=== PATIENT | female | born 1945 | race African-American/Black ===

== ENCOUNTER 2016-12-01 23:01 | Inpatient (IN) | payer MEDICARE, OTHER ==
[~2016-12-01] VITALS: Ht 162.6 cm; Wt 116.2 kg
[~2016-12-01 23:01] MED LIST: AMLO5 PO; LEVEMIR SQ; LISI-519 PO; METO-309 PO; NOVOLOGSS SQ; PANT40TA3 PO; SUCR1S PO
--- NOTE | 2016-12-01 23:11 | PD ---
HPI Chief Complaint: Neuro Symptoms/ Deficits Time Seen by Provider: 23:04 Travel History International Travel<30 days: No Contact w/Intl Traveler<30days: No Traveled to known affect area: No History of Present Illness HPI The patient is a 71-year-old Mia female who presents emergency department via EMS from a hotel on [facility] for hyperglycemia and strokelike symptoms. According to EMS the patient's symptoms started earlier today, unknown onset of time that varies from somewhere before 4 PM to 5 PM. The patient does not note acute onset of her symptoms, however, when asked she states it started before 4 PM. Her speech has been waxing and waning according to EMS with what appears to be expressive aphasia. The patient does have a history of previous CVA with dysarthria and left-sided weakness. The patient cannot recall all of her medications, however, states she was taken off of aspirin. The patient also has a history of diabetes and is currently controlled with insulin, coronary EMS the patient's blood sugar read as high. She denies any chest pain, shortness breath, nausea, vomiting, or abdominal pain. She denies any associated headache. She denies any acute weakness of the upper or lower extremity. She denies any acute numbness of the upper or lower extremity is, her biggest concern is or change in speech which appears to wax and wane. PFSH Past Medical History Arthritis: No Asthma: Yes Autoimmune Disease: No Blood Disorders: No Anxiety: No Depression: No Heart Rhythm Problems: No Cancer: No Cardiovascular Problems: Yes High Cholesterol: Yes Chemotherapy: No Chest Pain: Yes (At present) Congestive Heart Failure: No COPD: No Cerebrovascular Accident: Yes Diabetes: Yes Diminished Hearing: No Endocrine: Yes (DIABETES) GERD: Yes Genitourinary: No Headaches: No Hepatitis: No Hiatal Hernia: No Hypertension: Yes Immune Disorder: No Kidney Stones: No Musculoskeletal: No Neurologic: Yes Psychiatric: No Reproductive: No Respiratory: Yes Migraines: No Myocardial Infarction: No Radiation Therapy: No Renal Failure: No Seizures: No Sickle Cell Disease: No Thyroid Disease: No Ulcer: No Past Surgical History Abdominal Surgery: No AICD: No Appendectomy: No Arteriovenous Shunt: No Cardiac Surgery: No Cholecystectomy: No Ear Surgery: No Endocrine Surgery: No Eye Surgery: No Genitourinary Surgery: No Gynecologic Surgery: No Insulin Pump: No Joint Replacement: No Oral Surgery: No Pacemaker: No Thoracic Surgery: No Other Surgery: Yes (SCALP) Social History Alcohol Use: No Tobacco Use: No Substance Use: No Allergies-Medications (Allergen,Severity, Reaction): Coded Allergies: No Known Allergies (Verified , 04/27/16) Uncoded Allergies: [facility] (Allergy, Unknown, 05/03/09) Reported Meds & Prescriptions Reported Meds & Active Scripts Active Sucralfate Liq (Sucralfate) 1 Gm/10 Ml Nancy 1 Gm PO ACHS Pantoprazole (Pantoprazole Sodium) 40 Mg Tab 40 Mg PO DAILY Lisinopril 5 Mg Tab 10 Mg PO DAILY Norvasc (Amlodipine Besylate) 5 Mg Tab 5 Mg PO DAILY Novolog Inj (Insulin Aspart) 100 Unit/Ml Inj 1 Units SQ ACHS SLIDING SCALE 30 Days Low dose sliding scale if blood sugar <70 no insulin if BS 150-199 give 1 unit if BS 200-249 give 3 units if BS 250-299 give 5 units if BS 300-349 give 7 units if BS >349 give 9 units Lopressor (Metoprolol Tartrate) 50 Mg Tab 50 Mg PO Q12HR 30 Days Reported Levemir Inj (Insulin Detemir) 1,000 unit/ 10 ML Vial 40 Units SQ DAILY Do not mix with any other Insulin. Review of Systems Except as stated in HPI: all other systems reviewed are Neg General / Constitutional: No: Fever Eyes: No: Blurred Vision HENT: No: Headaches, Lightheadedness Cardiovascular: No: Chest Pain or Discomfort Respiratory: No: Shortness of Breath Gastrointestinal: No: Nausea, Vomiting, Abdominal Pain Genitourinary: No: Dysuria Musculoskeletal: No: Weakness Neurologic: Positive: Slurred Speech, No: Weakness, Headache, Change in Mentation, Paresthesia, Sensory Disturbance Physical Exam Narrative GENERAL: Awake, alert, 71-year-old female appears her stated age and is in no acute respiratory distress. SKIN: Focused skin assessment warm/dry. HEAD: Atraumatic. Normocephalic. EYES: Pupils equal and round. Pupils are 3 mm bilateral and reactive. EOMs are intact. She is able to see fingers at a distance of 2 feet without difficulty. ENT: No nasal bleeding or discharge. Mucous membranes pink and moist. NECK: Trachea midline. No JVD. CARDIOVASCULAR: Regular, tachycardic with a heart rate of 104. RESPIRATORY: No accessory muscle use. Clear to auscultation. Breath sounds equal bilaterally. GASTROINTESTINAL: Abdomen soft, non-tender, nondistended. No rebound tenderness. MUSCULOSKELETAL: No obvious deformities. No clubbing. No cyanosis. No edema. NEUROLOGICAL: Awake and alert. No obvious cranial nerve deficits. Mild drift of the left upper extremity, unable to raise her left leg off the bed. Sensation is symmetric on the face, arms, and legs. Mild dysarthria noted with what appears to be expressive aphasia. PSYCHIATRIC: Appropriate mood and affect; insight and judgment normal. Data Data Last Documented VS Vital Signs Date Time Temp Pulse Resp B/P Pulse Ox O2 Delivery O2 Flow Rate FiO2 12/01/16 23:31 20 99 Room Air 12/01/16 23:23 90 12/01/16 23:19 98.5 154/81 Orders Electrocardiogram (12/01/16 23:04) Prothrombin Time / Inr (Pt) (12/01/16 23:04) Act Partial Throm Time (Ptt) (12/01/16 23:04) Complete Blood Count With Diff (12/01/16 23:04) Comprehensive Metabolic Panel (12/01/16 23:04) Creatine Kinase (Cpk) (12/01/16 23:04) Troponin I (12/01/16 23:04) Urinalysis - C+S If Indicated (12/01/16 23:04) Ct Brain W/O Iv Contrast(Rout) (12/01/16 23:04) Chest, Single Ap (12/01/16 23:04) Ecg Monitoring (12/01/16 23:04) Iv Access Insert/Monitor (12/01/16 23:04) Oximetry (12/01/16 23:04) Blood Glucose (12/01/16 23:04) Sodium Chloride 0.9% Flush (Ns Flush) (12/01/16 23:15) Sodium Chlorid 0.9% 500 Ml Inj (Ns 500 M (12/01/16 23:15) Resp Blood Gas Venous (12/01/16 ) Beta Hydroxybutyrate (Acetone) (12/01/16 23:04) Aspirin Supp (Aspirin Supp) (12/01/16 23:30) CKMB (12/01/16 23:25) CKMB% (12/01/16 23:25) Insulin Human Regular Inj (Novolin R Inj (12/02/16 00:15) Insulin Aspart Inj (Novolog Inj) (12/02/16 00:15) Sodium Chlor 0.9% 1000 Ml Inj (Ns 1000 M (12/02/16 00:30) Blood Gas Venous (Vbg) (12/01/16 22:15) Labs Laboratory Tests Test 12/01/16 12/01/16 22:15 23:25 Blood Gas Puncture Site FROM IV SITE Blood Gas Patient Temperature 98.6 Venous Blood pH 7.37 Venous Blood Partial Pressure 47 mmHg CO2 Venous Blood Partial Pressure 30 mmHg O2 Venous Blood HCO3 26 mmol/L Venous Blood Oxygen Saturation 54 % Venous Blood Oxygen Content 9.0 Vol % Venous Blood Base Excess 1.5 mmol/L Oxygen Delivery Device NASAL CANNULA Blood Gas Liter Flow 2 L/M Prothrombin Time 10.4 SEC Prothromb Time International 0.9 RATIO Ratio Activated Partial 26.6 SEC Thromboplast Time White Blood Count 8.4 TH/MM3 Red Blood Count 4.61 MIL/MM3 Hemoglobin 12.5 GM/DL Hematocrit 38.7 % Mean Corpuscular Volume 83.9 FL Mean Corpuscular Hemoglobin 27.2 PG Mean Corpuscular Hemoglobin 32.4 % Concent Red Cell Distribution Width 15.1 % Platelet Count 242 TH/MM3 Mean Platelet Volume 10.4 FL Neutrophils (%) (Auto) 57.5 % Lymphocytes (%) (Auto) 29.2 % Monocytes (%) (Auto) 7.1 % Eosinophils (%) (Auto) 5.0 % Basophils (%) (Auto) 1.2 % Neutrophils # (Auto) 4.8 TH/MM3 Lymphocytes # (Auto) 2.5 TH/MM3 Monocytes # (Auto) 0.6 TH/MM3 Eosinophils # (Auto) 0.4 TH/MM3 Basophils # (Auto) 0.1 TH/MM3 CBC Comment DIFF FINAL Differential Comment Sodium Level 128 MEQ/L Potassium Level 5.1 MEQ/L Chloride Level 92 MEQ/L Carbon Dioxide Level 25.6 MEQ/L Anion Gap 10 MEQ/L Blood Urea Nitrogen 41 MG/DL Creatinine 2.01 MG/DL Estimat Glomerular Filtration 30 ML/MIN Rate Random Glucose 674 MG/DL Calcium Level 9.2 MG/DL Total Bilirubin 0.4 MG/DL Aspartate Amino Transf 23 U/L (AST/SGOT) Alanine Aminotransferase 16 U/L (ALT/SGPT) Alkaline Phosphatase 122 U/L Total Creatine Kinase 236 U/L Creatine Kinase MB 0.5 NG/ML Creatine Kinase MB % 0.2 % Troponin I 0.02 NG/ML Total Protein 7.8 GM/DL Albumin 3.4 GM/DL B-Hydroxybutyrate 0.24 MMOL/L MDM Medical Decision Making Medical Screen Exam Complete: Yes Emergency Medical Condition: Yes Medical Record Reviewed: Yes Interpretation(s) EKG reveals normal sinus rhythm with a rate in 92. No ischemic changes or ectopy noted. Last Impressions Head CT 12/01/16 2055 Signed Impressions: Service Date/Time: Thursday, December 01, 2016 23:09 - CONCLUSION: No acute findings. Stable configuration to the ventricles and chronic white matter changes. Dandre Tinoco MD Laboratory Tests Test 12/01/16 23:25 Prothrombin Time 10.4 SEC Prothromb Time International 0.9 RATIO Ratio Activated Partial 26.6 SEC Thromboplast Time White Blood Count 8.4 TH/MM3 Red Blood Count 4.61 MIL/MM3 Hemoglobin 12.5 GM/DL Hematocrit 38.7 % Mean Corpuscular Volume 83.9 FL Mean Corpuscular Hemoglobin 27.2 PG Mean Corpuscular Hemoglobin 32.4 % Concent Red Cell Distribution Width 15.1 % Platelet Count 242 TH/MM3 Mean Platelet Volume 10.4 FL Neutrophils (%) (Auto) 57.5 % Lymphocytes (%) (Auto) 29.2 % Monocytes (%) (Auto) 7.1 % Eosinophils (%) (Auto) 5.0 % Basophils (%) (Auto) 1.2 % Neutrophils # (Auto) 4.8 TH/MM3 Lymphocytes # (Auto) 2.5 TH/MM3 Monocytes # (Auto) 0.6 TH/MM3 Eosinophils # (Auto) 0.4 TH/MM3 Basophils # (Auto) 0.1 TH/MM3 CBC Comment DIFF FINAL Differential Comment Sodium Level 128 MEQ/L Potassium Level 5.1 MEQ/L Chloride Level 92 MEQ/L Carbon Dioxide Level 25.6 MEQ/L Anion Gap 10 MEQ/L Blood Urea Nitrogen 41 MG/DL Creatinine 2.01 MG/DL Estimat Glomerular Filtration 30 ML/MIN Rate Random Glucose 674 MG/DL Calcium Level 9.2 MG/DL Total Bilirubin 0.4 MG/DL Aspartate Amino Transf 23 U/L (AST/SGOT) Alanine Aminotransferase 16 U/L (ALT/SGPT) Alkaline Phosphatase 122 U/L Total Creatine Kinase 236 U/L Troponin I 0.02 NG/ML Total Protein 7.8 GM/DL Albumin 3.4 GM/DL B-Hydroxybutyrate 0.24 MMOL/L Chest x-ray reveals the lungs are clear Differential Diagnosis Differential diagnosis includes CVA, TIA, intracranial hemorrhage, hyperglycemia , DKA, dehydration, electrolyte abnormality. Narrative Course IV was established, labs are drawn and sent, and the patient was placed on cardiac telemetry monitoring and continuous pulse oximetry monitoring. A stroke alert was not called as we do not have a definitive onset of time, the patient states her symptoms started before 4 PM which is over 7 hours ago. She appears to have intermittent, waxing and waning expressive aphasia and previous old deficits of the left upper extremity and left lower extremity which she states is chronic. The patient's blood sugar was also noted to be in the 500s. EKG was ordered and interpreted. Stat CT of the brain was obtained. The patient was administered IV fluids. CT of the brain was negative, no acute findings, therefore, patient was administered aspirin. Patient's blood glucose was elevated at 674 but anion gap was normal, beta hydroxy was normal, no evidence of DKA. VBG pH was normal. Creatinine was elevated at 2.01, baseline appears to be 1.3 consistent with mild dehydration. Therefore, the patient was administered a second liter of IV fluids. Patient was administered IV insulin and subcutaneous insulin. CT the brain was negative, patient did receive her aspirin rectally as she will need a speech/swallow eval. The patient will be admitted to the on-call medical service. I discussed the patient with Dr. Shanks who agrees with admission. Physician Communication Physician Communication The on-call medical service was paged for admission. I discussed the patient with Dr. Shanks who agrees with admission. Diagnosis Primary Impression: Dysarthria due to cerebrovascular accident (CVA) Additional Impressions: Hyperglycemia Acute kidney injury Admitting Information Admitting Physician Requests: Admit Condition: Stable Dominguez Snyder MD Dec 01, 2016 23:11
[2016-12-01] MEDS ORDERED: SODIUM CHLORID 0.9% 500 ML INJ 500 ML IV ONE (23:15)
[2016-12-01] MEDS ORDERED: SODIUM CHLORIDE 0.9% FLUSH 10 ML FLUSH IVF PRN (23:15)
[2016-12-01 23:19] VITALS: BP 154/81; PULSE 102; RESP 20; TEMP 98.5; O2SAT 97
--- NOTE | 2016-12-01 23:19 | RADRPT ---
EXAM DATE/TIME: 12/01/2016 23:09 [facility] COMPARISON: CT BRAIN W/O CONTRAST, April 27, 2016, 18:30. INDICATIONS : Slurred speech. RADIATION DOSE: 43.52 CTDIvol (mGy) MEDICAL HISTORY : Unobtainable. SURGICAL HISTORY : Unobtainable. ENCOUNTER: Initial ACUITY: 1 day PAIN SCALE: 0/10 LOCATION: cranial TECHNIQUE: Multiple contiguous axial images were obtained of the head. Using automated exposure control and adj ustment of the mA and/or kV according to patient size, radiation dose was kept as low as reasonably a chievable to obtain optimal diagnostic quality images. DICOM format image data is available electro nically for review and comparison. FINDINGS: CEREBRUM: The ventricles are normal for age. Decreased attenuation in the white matter very similar in appeara nce to prior CT in April 2016. No evidence of midline shift, mass lesion, hemorrhage or acute inf arction. No extra-axial fluid collections are seen. POSTERIOR FOSSA: The cerebellum and brainstem are intact. The 4th ventricle is midline. The cerebellopontine angle i s unremarkable. EXTRACRANIAL: The visualized portion of the orbits is intact. SKULL: The calvaria is intact. No evidence of skull fracture. CONCLUSION: No acute findings. Stable configuration to the ventricles and chronic white matter changes. Dandre Tinoco MD on December 01, 2016 at 23:15 Board Certified Radiologist. This report was verified electronically.
[2016-12-01] MEDS ORDERED: ASPIRIN 300 MG SUPP RECTAL ONE (23:30)
[2016-12-01 23:31] VITALS: RESP 20; O2SAT 99
[2016-12-01 23:39] LABS: AUTOMATED NEUTROPHIL # 4.8 TH/MM3 (1.8-7.7); BASOPHIL # 0.1 TH/MM3 (0-0.2); BASOPHIL % 1.2 % (0.0-2.0); EOSINOPHIL # 0.4 TH/MM3 (0-0.4); HEMATOCRIT 38.7 % (35.0-46.0); HEMO FLAGS DIFF FINAL; LYMPH % 29.2 % (9.0-44.0); LYMPHOCYTE # 2.5 TH/MM3 (1.0-4.8); MEAN CELL VOLUME 83.9 FL (80.0-100.0); MEAN CORPUSCULAR HEMOGLOBIN 27.2 PG (27.0-34.0); MEAN CORPUSCULAR HGB CONC 32.4 % (32.0-36.0); MONO % 7.1 % (0.0-8.0); NEUT % 57.5 % (16.0-70.0); PLATELET COUNT 242 TH/MM3 (150-450); RED BLOOD COUNT 4.61 MIL/MM3 (4.00-5.30); RED CELL DISTRIBUTION WIDTH 15.1 % (11.6-17.2); WHITE BLOOD COUNT 8.4 TH/MM3 (4.0-11.0)
[2016-12-01 23:45] LABS: APTT (PATIENT) 26.6 SEC (24.3-30.1); INTERNATIONAL NORMALIZED RATIO 0.9 RATIO; PROTHROMBIN TIME - PATIENT 10.4 SEC (9.8-11.6)
[2016-12-02] VITALS (10 sets, daily range): BP systolic 132–208; BP diastolic 66–94; PULSE 66–87; RESP 16–20; TEMP 96.2–98.4; O2SAT 98–100
[2016-12-02 00:08] LABS: ALKALINE PHOSPHATASE 122 U/L (45-117); ALT (GPT) 16 U/L (10-53); ANION GAP 10 MEQ/L (5-15); AST (GOT) 23 U/L (15-37); BETA-HYDROXYBUTYRATE 0.24 MMOL/L (0.00-0.39); BICARBONATE 25.6 MEQ/L (21.0-32.0); BLOOD UREA NITROGEN 41 MG/DL (7-18); CHLORIDE 92 MEQ/L (98-107); CREATINE KINASE 236 U/L (26-192); GLOMERULAR FILTRATION RATE 30 ML/MIN (>89); SODIUM (NA) 128 MEQ/L (136-145); TOTAL BILIRUBIN ADULT 0.4 MG/DL (0.2-1.0)
[2016-12-02 00:09] LABS: POTASSIUM 5.1 MEQ/L (3.5-5.1)
[2016-12-02] MEDS ORDERED: INSULIN ASPART 1,000 UNITS/10 ML VIAL SQ ONE (00:15)
[2016-12-02] MEDS ORDERED: INSULIN HUMAN REGULAR 1,000 UNITS/10 ML VIAL IV PUSH ONE (00:15)
--- NOTE | 2016-12-02 00:19 | RADRPT ---
EXAM DATE/TIME: 12/01/2016 23:34 [facility] COMPARISON: CHEST SINGLE AP, June 03, 2016, 18:12. INDICATIONS : Shortness of breath. MEDICAL HISTORY : Hypercholesterolemia. Hypertension Gastroesophageal reflux disease. CVA Asthma Diabetes SURGICAL HISTORY : None. ENCOUNTER: Initial ACUITY: 1 day PAIN SCORE: 0/10 LOCATION: Bilateral chest FINDINGS: A single view of the chest demonstrates the lungs to be symmetrically aerated without evidence of mas s, infiltrate or effusion. The heart is normal size. Stable tortuosity descending thoracic aorta. Osseous structures are intact. CONCLUSION: The lungs are clear. Dandre Tinoco MD on December 02, 2016 at 0:17 Board Certified Radiologist. This report was verified electronically.
[2016-12-02 00:29] LABS: CKMB 0.5 NG/ML (0.5-3.6)
[2016-12-02] MEDS ORDERED: SODIUM CHLOR 0.9% 1000 ML INJ 1,000 ML IV ONE (00:30)
[2016-12-02 00:39] LABS: BLOOD GAS VENOUS BASE EXCESS 1.5 mmol/L (-2-2); BLOOD GAS VENOUS HCO3 26 mmol/L (22-26); BLOOD GAS VENOUS O2 HGB SAT 54 % (70-76); BLOOD GAS VENOUS PCO2 47 mmHg (44-48); BLOOD GAS VENOUS PO2 30 mmHg (35-40); BLOOD GAS VENOUS pH 7.37 (7.360-7.400); CRITICAL VALUE NO; DRAW SITE FROM IV SITE; LITER FLOW 2 L/M; OXYGEN DEVICE NASAL CANNULA; STAT YES; TEMP CORR TO 98.6
[2016-12-02] MEDS ORDERED: GLUCAGON 1 MG/ML VIAL OTHER PRN (01:00)
[2016-12-02] MEDS ORDERED: LACTULOSE SYRUP 20 GM/30 ML CUP PO PRN (01:00)
[2016-12-02] MEDS ORDERED: ONDANSETRON HCL 4 MG/2 ML VIAL IVP PRN (01:00)
[2016-12-02] MEDS ORDERED: SODIUM CHLORIDE 0.9% FLUSH 10 ML FLUSH IV FLUSH PRN (01:00)
[2016-12-02] MEDS ORDERED: ACETAMINOPHEN 1000 MG/100 ML VIAL IV PRN (01:00)
[2016-12-02] MEDS ORDERED: ENALAPRILAT 1.25 MG/ML VIAL IV PRN (01:00)
[2016-12-02] MEDS ORDERED: SENNOSIDES 8.6 MG TAB PO PRN (01:00)
[2016-12-02] MEDS ORDERED: BISACODYL 10 MG SUPP RECTAL PRN (01:00)
[2016-12-02] MEDS ORDERED: MAGNESIUM HYDROXIDE SUSP 30 ML CUP PO PRN (01:00)
[2016-12-02] MEDS ORDERED: DEXTROSE 50% IN WATER 50 ML VIAL(D50) IV PUSH PRN (01:00)
[2016-12-02] MEDS ORDERED: SODIUM CHLORIDE 0.9% FLUSH 5 ML FLUSH IV FLUSH PRN (01:00)
--- NOTE | 2016-12-02 01:41 | HHI.HP ---
[facility] Service [facility] Primary Care Physician Kane Leal M.D. Admission Diagnosis CVA with dysarthria, hyperglycemia, acute kidney injury Diagnoses: (1) CVA (cerebral vascular accident) Diagnosis: Principal (2) SRINIVASAN (acute kidney injury) Diagnosis: Principal (3) HTN (hypertension) Diagnosis: Principal (4) DM (diabetes mellitus) Diagnosis: Principal Travel History International Travel<30 Days: No Contact w/Intl Traveler <30 Da: No Traveled to Known Affected Are: No History of Present Illness This is a 71-year-old female with a PMH of HTN, Hyperlipidemia, DM and h/o CVA was brought to the ER by EMS secondary to stroke like symptoms. Pt w/ acute onset of dysarthria starting earlier today, however unable to provide exact time , therefore no Stroke Alert initiated. Denies numbness or weakness. Previous CVA "years ago" w/ left-sided hemiparesis and slurred speech, completely resolved. Was on ASA however states taken off approx 1yr ago by PCP. On arrival, BP 154/81, HR 102, O2 sat 97% on RA, Afebrile. CBC normal. Creatinine 2.01, previously 1.23 on 06/06/16. BS 674. INR 0.9. CXR with no acute findings. CT Head negative for acute findings. S/p IVF, Insulin and ASA DC in ER. Pt w/ persistent dysarthria. Review of Systems Except as stated in HPI: all other systems reviewed are Neg ROS: 14 point review of systems otherwise negative. Past Family Social History Past Medical History PMH: HTN, Hyperlipidemia, DM and h/o CVA Past Surgical History PAST SURGICAL HISTORY: None Allergies: Coded Allergies: No Known Allergies (Verified , 04/27/16) Uncoded Allergies: [facility] (Allergy, Unknown, 05/03/09) Family History PAST FAMILY HISTORY: Reviewed. No h/o DM or CAD Social History PAST SOCIAL HISTORY: Negative for alcohol, tobacco or drugs. Physical Exam Vital Signs Vital Signs Date Time Temp Pulse Resp B/P Pulse Ox O2 Delivery O2 Flow Rate FiO2 12/01/16 23:31 20 99 Room Air 12/01/16 23:23 90 20 97 Room Air 12/01/16 23:19 98.5 102 20 154/81 97 Physical Exam PE: GENERAL: Very pleasant elderly black female in no acute distress. HEENT: PERRLA, EOMI. No scleral icterus or conjunctival pallor. No lid lag or facial droop. + Dysarthria CARDIOVASCULAR: Regular rate and rhythm. No obvious murmurs to auscultation. No chest tenderness to palpation. RESPIRATORY: No obvious rhonchi or wheezing. Clear to auscultation. Breath sounds equal bilaterally. GASTROINTESTINAL: Abdomen soft, non-tender, nondistended. BS normal. MUSCULOSKELETAL: Extremities without clubbing, cyanosis, or edema. No obvious deformities. NEUROLOGICAL: Awake, alert and oriented x4, +dysarthria as above. No focal neurologic deficits. Moving both upper and lower extremities spontaneously. Laboratory Laboratory Tests Test 12/01/16 12/01/16 22:15 23:25 Blood Gas Puncture Site FROM IV SITE Blood Gas Patient Temperature 98.6 Venous Blood pH 7.37 Venous Blood Partial Pressure 47 CO2 Venous Blood Partial Pressure 30 O2 Venous Blood HCO3 26 Venous Blood Oxygen Saturation 54 Venous Blood Oxygen Content 9.0 Venous Blood Base Excess 1.5 Oxygen Delivery Device NASAL CANNULA Blood Gas Liter Flow 2 Prothrombin Time 10.4 Prothromb Time International 0.9 Ratio Activated Partial 26.6 Thromboplast Time White Blood Count 8.4 Red Blood Count 4.61 Hemoglobin 12.5 Hematocrit 38.7 Mean Corpuscular Volume 83.9 Mean Corpuscular Hemoglobin 27.2 Mean Corpuscular Hemoglobin 32.4 Concent Red Cell Distribution Width 15.1 Platelet Count 242 Mean Platelet Volume 10.4 Neutrophils (%) (Auto) 57.5 Lymphocytes (%) (Auto) 29.2 Monocytes (%) (Auto) 7.1 Eosinophils (%) (Auto) 5.0 Basophils (%) (Auto) 1.2 Neutrophils # (Auto) 4.8 Lymphocytes # (Auto) 2.5 Monocytes # (Auto) 0.6 Eosinophils # (Auto) 0.4 Basophils # (Auto) 0.1 CBC Comment DIFF FINAL Differential Comment Sodium Level 128 Potassium Level 5.1 Chloride Level 92 Carbon Dioxide Level 25.6 Anion Gap 10 Blood Urea Nitrogen 41 Creatinine 2.01 Estimat Glomerular Filtration 30 Rate Random Glucose 674 Calcium Level 9.2 Total Bilirubin 0.4 Aspartate Amino Transf 23 (AST/SGOT) Alanine Aminotransferase 16 (ALT/SGPT) Alkaline Phosphatase 122 Total Creatine Kinase 236 Creatine Kinase MB 0.5 Creatine Kinase MB % 0.2 Troponin I 0.02 Total Protein 7.8 Albumin 3.4 B-Hydroxybutyrate 0.24 Result Diagram: 12/01/16 12/01/162 Assessment and Plan Problem List: (1) CVA (cerebral vascular accident) ICD Code: I63.9 Status: Acute (2) SRINIVASAN (acute kidney injury) ICD Code: N17.9 Status: Acute (3) HTN (hypertension) ICD Code: I10 Status: Acute (4) DM (diabetes mellitus) ICD Code: E11.9 Status: Acute Assessment and Plan A/P: 1. CVA: Acute onset of dysarthria, exact time of onset unknown, presumed to be outside of window. CT Head w/ no acute findings, images reviewed by me. Symptoms persistent. States off ASA x1 yr per PCP. S/p ASA DC in ER. Check MRI/MRA, Check Echo, Lipid Panel, Hgb A1c, continue w/ ASA, Neuro Checks, IVF, NPO, PT/Speech, Neurology consult. 2. SRINIVASAN: Creatinine 2.01, previously 1.23 on 06/06/16, IVF, repeat labs in am. 3. HTN: BP 150's, hold antihypertensives, allow for permissive HTN. Monitor BP. 4. DM: Uncontrolled. BS 674, s/p Insulin/IVF in ER. Sliding scale w/ Accu- Cheks. Check Hgb A1c. 5. DVT Prophylaxis: SCD/Teds. 6. Social work for d/c planning as needed. 7. Case discussed w/ ER physician at length. Physician Certification 2 Midnight Certification Type: Admission for Inpatient Services Order for Inpatient Services The services are ordered in accordance with Medicare regulations or non- Medicare payer requirements, as applicable. In the case of services not specified as inpatient-only, they are appropriately provided as inpatient services in accordance with the 2-midnight benchmark. Estimated LOS (days): 2 days is the estimated time the patient will need to remain in the hospital, assuming treatment plan goals are met and no additional complications. Post-Hospital Plan: Not yet determined Laura Shanks MD Dec 02, 2016 01:41
[2016-12-02 01:59] LABS: BLOOD, URINE NEG (NEG); GLUCOSE,URINE 1000 mg/dL (NEG); KETONE, URINE NEG (NEG); NITRITE,URINE NEG (NEG); PH, URINE 5.5 (5.0-8.5); URINE COLOR LIGHT-YELLOW (YELLW/STRAW)
[2016-12-02 02:00] LABS: COMMENT (UR) CATH-CULT NOT IND; CULTURE IF INDICATED CATH CULTURE NOT IND
[2016-12-02] MEDS ORDERED: LABETALOL HCL 100 MG/20 ML VIAL IV PUSH ONE (02:00)
[2016-12-02] MEDS: SODIUM CHLOR 0.9% 1000 ML INJ 1,000 ML IV SCH ×3 (02:10→20:13)
[2016-12-02] MEDS ORDERED: INSULIN ASPART SUPPLEMENTAL SCALE SQ SCH (07:00)
[2016-12-02] MEDS: ASPIRIN 300 MG SUPP RECTAL SCH (08:24)
[2016-12-02] MEDS: SODIUM CHLORIDE 0.9% FLUSH 10 ML FLUSH IV FLUSH SCH ×2 (08:24→19:49)
[2016-12-02] MEDS: DOCUSATE SODIUM 50 MG/SENNA 8.6 MG TAB PO SCH ×2 (08:24→19:49)
[2016-12-02] MEDS ORDERED: SODIUM CHLORIDE 0.9% FLUSH 5 ML FLUSH IV FLUSH SCH (09:00)
[2016-12-02] MEDS: INSULIN DETEMIR 100 UNITS/ML VIAL SQ SCH ×2 (09:15→20:18)
--- NOTE | 2016-12-02 10:01 | HHI.PR ---
Subjective Remarks Follow-up for possible CVA, hyperglycemia, and acute renal failure Patient continues to be lethargic and has dysarthria Able to arouse patient. She stated that she is sleepy. Per nurse no acute events since she was last admitted. She stated that patient answers her questions appropriately but has been tired. No focal neurological deficits noted. Objective Vitals Vital Signs Date Time Temp Pulse Resp B/P Pulse Ox O2 Delivery O2 Flow Rate FiO2 12/02/16 08:00 97.0 80 18 140/66 98 12/02/16 04:00 96.2 80 16 132/69 100 12/02/16 03:21 96.6 81 20 196/94 100 12/02/16 02:18 79 18 153/85 100 Room Air 2 12/02/16 02:03 100 Nasal Cannula 2.00 12/02/16 01:50 78 20 208/94 100 Room Air 2 12/01/16 23:31 20 99 Room Air 12/01/16 23:23 90 20 97 Room Air 12/01/16 23:19 98.5 102 20 154/81 97 I/O 12/01/16 12/01/16 12/01/16 12/02/16 12/02/16 12/02/16 07:00 15:00 23:00 07:00 15:00 23:00 Intake Total 444 ml Balance 444 ml Intake IV Total 444 ml # Voids 1 Result Diagram: 12/01/16232412/01/162324 Imaging Last Impressions Head CT 12/01/162303 Signed Impressions: Service Date/Time: Thursday, December 01, 2016 23:09 - CONCLUSION: No acute findings. Stable configuration to the ventricles and chronic white matter changes. Dandre Tinoco MD Chest X-Ray 12/01/162303 Signed Impressions: Service Date/Time: Thursday, December 01, 2016 23:34 - CONCLUSION: The lungs are clear. Dandre Tinoco MD Objective Remarks GENERAL: Patient in no acute distress but she is very sleepy during the interview. Arousable. HEENT: PERRLA, EOMI. No scleral icterus or conjunctival pallor. No lid lag or facial droop. + Dysarthria CARDIOVASCULAR: Regular rate and rhythm. No obvious murmurs to auscultation. No chest tenderness to palpation. RESPIRATORY: Clear to auscultation. Breath sounds equal bilaterally. GASTROINTESTINAL: Abdomen soft, non-tender, nondistended. BS normal. MUSCULOSKELETAL: Extremities without clubbing, cyanosis, or edema. No obvious deformities. NEUROLOGICAL: Too sleepy to assess orientation but she is arousable and does follow commands. Due to sleepiness and dysarthria sometimes is hard to understand patient. Cranial nerve II-12 intact. Motor and sensation are grossly intact. Medications and IVs Current Medications Sodium Chloride 2 ml 2 ml UNSCH PRN IVF FLUSH AFTER USING IV ACCESS; Start at 23:15; Stop 12/02/16 at 01:11; Status DC Sodium Chloride (NS 500 ml Inj) 500 ml @ 500 mls/hr BOLUS ONCE IV Last administered on 12/01/16 23:15; Start 12/01/16 at 23:15; Stop 12/02/16 at 00:14 ; Status DC Aspirin (Aspirin Supp) 300 mg ONCE ONCE RECTAL Last administered on 12/01/16 23:58; Start 12/01/16 at 23:30; Stop 12/01/16 at 23:31; Status DC Insulin Human Regular (NovoLIN R INJ) 8 units ONCE ONCE IV PUSH Last administered on 12/02/16 00:41; Start 12/02/16 at 00:15; Stop 12/02/16 at 00:16 ; Status DC Insulin Aspart 10 units 10 units ONCE ONCE SQ Last administered on 12/02/16 00:42; Start 12/02/16 at 00:15; Stop 12/02/16 at 00:16; Status DC Sodium Chloride (NS 1000 ml Inj) 1,000 ml @ 999 mls/hr BOLUS ONCE IV Last administered on 12/02/16 00:40; Start 12/02/16 at 00:30; Stop 12/02/16 at 01:30 ; Status DC IV Flush (NS Flush) 2 ml BID IV FLUSH ; Start 12/02/16 at 09:00; Stop 12/02/16 at 09:00; Status DC IV Flush (NS Flush) 2 ml UNSCH PRN IV FLUSH FLUSH AFTER USING IV ACCESS; Start 12/02/16 at 01:00; Stop 12/02/16 at 01:11; Status DC Enalaprilat (Vasotec Inj) 1.25 mg Q4H PRN IV For SBP > 220 or DBP > 120; Start 12/02/16 at 01:00 Aspirin (Aspirin Supp) 300 mg DAILY RECTAL Last administered on 12/02/16 08:24 ; Start 12/02/16 at 09:00 Insulin Aspart (NovoLOG SUPPLEMENTAL SCALE) 1 ACHS SQ Last administered on 12/02 06:07; Start 12/02/16 at 07:00; Stop 12/02/16 at 09:08; Status DC Dextrose (D50w (Vial) Inj) 50 ml UNSCH PRN IV PUSH HYPOGLYCEMIA-SEE COMMENTS; Start 12/02/16 at 01:00 Glucagon 1 mg 1 mg UNSCH PRN OTHER HYPOGLYCEMIA-SEE COMMENTS; Start 12/02/16 at 01:00 Sodium Chloride (NS 1000 ml Inj) 1,000 ml @ 100 mls/hr Q10H IV Last administered on 12/02/16 02:10; Start 12/02/16 at 00:59 Sodium Chloride (NS Flush) 2 ml UNSCH PRN IV FLUSH FLUSH AFTER USING IV ACCESS ; Start 12/02/16 at 01:00 Sodium Chloride (NS Flush) 2 ml BID IV FLUSH Last administered on 12/02/16 08: 24; Start 12/02/16 at 09:00 Ondansetron HCl (Zofran Inj) 4 mg Q6H PRN IVP NAUSEA OR VOMITING; Start at 01:00 Acetaminophen (Ofirmev Inj) 1,000 mg Q6H PRN IV FEVER; Start 12/02/16 at 01:00 ; Stop 12/02/16 at 19:01 Senna/Docusate Sodium (Barbie-Colace) 1 tab BID PO ; Start 12/02/16 at 09:00 Magnesium Hydroxide (Milk Of Magnesia Liq) 30 ml Q12H PRN PO MILD - MODERATE CONSTIPATION; Start 12/02/16 at 01:00 Sennosides (Senokot) 17.2 mg Q12H PRN PO MODERATE - SEVERE CONSTIPATION; Start 12/02/16 at 01:00 Bisacodyl (Dulcolax Supp) 10 mg DAILY PRN RECTAL SEVERE CONSITIPATION; Start at 01:00 Lactulose (Lactulose Liq) 30 ml DAILY PRN PO SEVERE CONSITIPATION; Start at 01:00 Labetalol HCl (Trandate Inj) 20 mg ONCE ONCE IV PUSH Last administered on 12/02t 02:11; Start 12/02/16 at 02:00; Stop 12/02/16 at 02:01; Status DC Insulin Detemir (Levemir Inj) 20 units Q12HR SQ ; Start 12/02/16 at 09:15 Insulin Aspart (NovoLOG SUPPLEMENTAL SCALE) 1 ACHS SLIDING SCALE SQ ; Start at 11:00 A/P Problem List: (1) CVA (cerebral vascular accident) ICD Code: I63.9 Status: Acute (2) SRINIVASAN (acute kidney injury) ICD Code: N17.9 Status: Acute (3) HTN (hypertension) ICD Code: I10 Status: Acute (4) DM (diabetes mellitus) ICD Code: E11.9 Status: Acute Assessment and Plan Acute onset of dysarthria, exact time of onset unknown, presumed to be outside of window. -CT Head w/ no acute findings, images reviewed by me. Symptoms persistent. States off ASA x1 yr per PCP. S/p ASA TX in ER. - pending MRI/MRA, Check Echo, Lipid Panel, Hgb A1c, continue w/ ASA, Neuro Checks, IVF, NPO, PT/Speech, Neurology consulted. Acute on chronic renal failure: Creatinine 2.01, previously 1.23 on 06/06/16 -This may be acute on chronic acute renal failure due to uncontrolled diabetes. Patient most likely have underlying diabetic nephropathy. -Continue to monitor strict ins and outs. Continue to monitor GFR/creatinine. -Avoid nephrotoxins. HTN: BP 150 -At the moment allowing permissive hypertension until MRI results are back. DM: Uncontrolled. BS 674, s/p Insulin/IVF in ER -Pending hemoglobin A1c. -Blood sugars in the upper 300s. Patient home dose of Levemir is 40 at bedtime. Will start Levemir 20 units twice a day. Increase insulin sliding scale to moderate dose. -On hypoglycemia protocol. DVT Prophylaxis: SCD/Teds. Discharge Planning Patient requires continual hospitalization for possible CVA and she continues to be symptomatic. She also is an acute renal failure and requires IV fluids. Yusra Perdue MD Dec 02, 2016 10:01
[2016-12-02] MEDS: INSULIN ASPART SUPPLEMENTAL SCALE SQ SCH ×3 (11:00→20:18)
--- NOTE | 2016-12-02 13:30 | RADRPT ---
EXAM DATE/TIME: 12/02/2016 12:13 [facility] COMPARISON: MRI BRAIN W/O CONTRAST, December 02, 2016, 12:13. INDICATIONS : Dysphasia. MEDICAL HISTORY : Hypertension. Diabetes mellitus type 2. SURGICAL HISTORY : Scalp surgery. ENCOUNTER: Subsequent ACUITY: 1 day PAIN SCORE: 0/10 LOCATION: cranial Please note a normal MRA of the brain does not entirely exclude the possibility of a small aneurysm, nor the possibility of distal intracranial vessel disease. TECHNIQUE: 3D time of flight MRA was performed. Source images, multiplanar STS MIP, and 3D volume MIP reconstru ctions were reviewed. FINDINGS: There is excellent visualization of the major intracranial arteries out to the second-order branch ve ssels. There is no evidence for aneurysm, vessel truncation or stenosis, and no evidence for vascula r malformation. CONCLUSION: Normal examination. Pop Cervantes MD on December 02, 2016 at 13:22 Board Certified Radiologist. This report was verified electronically.
--- NOTE | 2016-12-02 13:33 | RADRPT ---
EXAM DATE/TIME: 12/02/2016 12:13 [facility] COMPARISON: No previous studies available for comparison. INDICATIONS : Dysphasia. MEDICAL HISTORY : Hypertension. Diabetes mellitus type 2. SURGICAL HISTORY : scalp surgery ENCOUNTER: Subsequent ACUITY: 1 day PAIN SCORE: 0/10 LOCATION: cranial TECHNIQUE: Multiplanar, multisequence MRI of the brain was performed without contrast. FINDINGS: There is a tiny focus of restricted diffusion in the left thalamus consistent with small subacute lac unar infarct. There are scattered small areas of T2 prolongation in the periventricular white matter, likely chronic ischemic in etiology. There is no evidence of intracranial mass or hemorrhage. The ve ntricles are symmetric and normal. Extracranial structures are benign and intact. CONCLUSION: Subacute left thalamic lacunar infarct. Pop Cervantes MD on December 02, 2016 at 13:28 Board Certified Radiologist. This report was verified electronically.
[2016-12-02 14:03] LABS: BASOPHIL # 0.1 TH/MM3 (0-0.2); EOSINOPHIL # 0.5 TH/MM3 (0-0.4); EOSINOPHIL % 7.8 % (0.0-4.0); HEMATOCRIT 38.1 % (35.0-46.0); HEMO FLAGS DIFF FINAL; LYMPH % 24.8 % (9.0-44.0); LYMPHOCYTE # 1.6 TH/MM3 (1.0-4.8); MEAN CELL VOLUME 82.9 FL (80.0-100.0); MEAN CORPUSCULAR HEMOGLOBIN 26.7 PG (27.0-34.0); MEAN CORPUSCULAR HGB CONC 32.2 % (32.0-36.0); MONO % 5.6 % (0.0-8.0); NEUT % 60.8 % (16.0-70.0); PLATELET COUNT 201 TH/MM3 (150-450); WHITE BLOOD COUNT 6.5 TH/MM3 (4.0-11.0)
[2016-12-02 14:50] LABS: ALT (GPT) 14 U/L (10-53); ANION GAP 9 MEQ/L (5-15); AST (GOT) 14 U/L (15-37); BICARBONATE 24.9 MEQ/L (21.0-32.0); BLOOD UREA NITROGEN 29 MG/DL (7-18); CHLORIDE 103 MEQ/L (98-107); GLOMERULAR FILTRATION RATE 47 ML/MIN (>89); SODIUM (NA) 137 MEQ/L (136-145)
[2016-12-02 14:53] LABS: POTASSIUM 4.9 MEQ/L (3.5-5.1)
[2016-12-02 15:03] LABS: ALKALINE PHOSPHATASE 105 U/L (45-117); HDL CHOLESTEROL 49.1 MG/DL (40.0-60.0); LDL CHOLESTEROL 107 MG/DL (0-99); TOTAL BILIRUBIN ADULT 0.6 MG/DL (0.2-1.0)
[2016-12-02 15:45] LABS: HEMOGLOBIN A1a 1.7 %; HEMOGLOBIN A1b 1.4 %; HEMOGLOBIN Ao 69.4 %; HEMOGLOBIN F 2.6 %; HEMOGLOBIN LA1C 3.3 %; HEMOGLOBIN P3 6.5 %
[2016-12-03] VITALS (9 sets, daily range): BP systolic 123–161; BP diastolic 79–110; PULSE 74–89; RESP 17–20; TEMP 96.6–99.2; O2SAT 96–99
[2016-12-03] MEDS: SODIUM CHLOR 0.9% 1000 ML INJ 1,000 ML IV SCH ×2 (03:48→08:02)
[2016-12-03] MEDS: INSULIN ASPART SUPPLEMENTAL SCALE SQ SCH ×3 (07:00→16:00)
--- NOTE | 2016-12-03 07:47 | EKG ---
Date Performed: 12/01/2016 Time Performed: 23:21:57 PTAGE: 71 years EKG: Sinus rhythm NORMAL ECG PREVIOUS TRACING : 12/01/2016 23.21 DOCTOR: Walker Hernadnez Interpretating Date/Time 12/03/2016 07:43:58
[2016-12-03] MEDS: INSULIN DETEMIR 100 UNITS/ML VIAL SQ SCH (07:59)
[2016-12-03] MEDS: DOCUSATE SODIUM 50 MG/SENNA 8.6 MG TAB PO SCH ×2 (08:03→21:50)
[2016-12-03] MEDS: SODIUM CHLORIDE 0.9% FLUSH 10 ML FLUSH IV FLUSH SCH ×2 (08:03→21:50)
[2016-12-03] MEDS: ASPIRIN 300 MG SUPP RECTAL SCH (08:03)
[2016-12-03] MEDS: LISINOPRIL 5 MG TAB PO SCH (09:45)
--- NOTE | 2016-12-03 10:51 | MB ---
cc: KIMBERLY VALLES MD DATE OF CONSULTATION 12/02/2016 REASON FOR CONSULTATION Dysarthria question/stroke HISTORY OF PRESENT ILLNESS Ms. Harrison is a 71-year-old -Stateless female who presented to the [facility] emergency department for hyperglycemia and stroke-like symptoms and according to the EMS symptoms started earlier yesterday of unknown onset on Friday between 4 and 5:00 p.m. The patient states that she had speech difficulty for a two days duration and the patient has history of previous stroke with dysarthria and left-sided weakness that has resolved completely. She also has a history of hypertension and poorly controlled diabetes and currently has been taken off the aspirin. A stroke alert was not initiated because of unknown time of start of symptoms. Upon arrival, vital signs were unremarkable. Blood sugar was 674, creatinine 2.1, INR 0.9 CTA revealed no acute findings. REVIEW OF SYSTEMS A 12-point review of systems is negative except for what is stated in the HPI. PAST MEDICAL HISTORY 1. Hypertension 2. Hyperlipidemia 3. Diabetes 4. Stroke with no residual deficit, involved the left-sided with dysarthria. PAST SURGICAL HISTORY Noncontributory ALLERGIES No known allergies. FAMILY HISTORY Noncontributory SOCIAL HISTORY Negative for alcohol, tobacco or drugs. PHYSICAL EXAM GENERAL: Good historian with slurred speech who is in acute distress. HEENT: Atraumatic, normocephalic with bilateral ptosis and dysarthria. Intact hearing. Intact vision. CARDIOVASCULAR: Regular rate and rhythm. RESPIRATORY: Clear to auscultation. No wheezes. ABDOMEN: Soft abdomen nontender. MUSCULOSKELETAL: Without clubbing, cyanosis or edema. No obvious deformity. NEUROLOGIC: Awake, alert, oriented to time, person and place. Dysarthria. No dysphasia. Bilateral ptosis, questionable chronic. Her pupils are 3 mm bilaterally equally reacting to light and accommodation. No diplopia. No nystagmus. No facial asymmetry. Mild right facial weakness. Intact palate elevation. Normal tongue. Motor system, right shoulder abduction 4+/5 right hip flexion, foot dorsiflexion 4+/5. The rest of the motor system is unremarkable. No abnormal movements. Normal tone. Cerebellar function is intact. Globe distribution of sensory abnormality. Intact [id number] on exam. PSYCHOLOGICAL: Calm, cooperative and no hallucinations. LABORATORY DATA White blood cells 6.5, hemoglobin 12.3, MCHC 2.2, platelet count 201. Sodium initially 128 today 137, potassium 4.9, BUN 29, creatinine 1.35, random glucose 674 initially, today 295, A1c 15.2, alkaline phosphatase elevated at 122, total CPK 256, elevated at 236, triglyceride 383, cholesterol 233, LDL 107, HDL 49. DIAGNOSTIC IMAGING - Head CT scan, no acute findings. DIAGNOSTIC IMPRESSION 1. Dysarthria with right hemiparesis, possible left hemisphere ischemic stroke likely etiology lacunar infarction. 2. Diabetes mellitus 3. Hypertension 4. Hypercholesteremia 5. Morbid obesity 6. SRINIVASAN PLAN 1. Neuro checks q. one hourly 2. N.p.o. 3. Speech and swallow evaluation 4. Allow permissive hypertension for 24 hours. Treat for blood pressure greater than 228/120. 5. Aspirin 81 mg 6. Aggressive control of blood sugar. 7. DVT prophylaxis 8. PT/OT recommendations are appreciated 9. GI prophylaxis 10. MRI of the brain 11. MRA head Thank you for the opportunity to participate in the care of your patient. MD NEGRITO Jesus/CHANDNI /9:56 PM /10:37 AM MTDJuan
--- NOTE | 2016-12-03 11:19 | HHI.PR ---
Subjective Remarks Follow-up for CVA Patient dysarthria is better. She is less fatigued today. Patient is AAO 3. She does complain of left knee pain and slight right upper extremity weakness. Otherwise no complaints. Objective Vitals Vital Signs Date Time Temp Pulse Resp B/P Pulse Ox O2 Delivery O2 Flow Rate FiO2 12/03/16 08:03 98 Nasal Cannula 2.00 12/03/16 07:10 74 12/03/16 04:00 97.3 81 20 161/91 98 12/03/16 00:00 98.0 78 20 155/110 99 12/02/16 20:29 Nasal Cannula 2.00 12/02/16 20:00 97.1 76 20 149/93 100 12/02/16 20:00 87 12/02/16 17:50 82 12/02/16 16:00 97.8 87 18 170/88 98 12/02/16 14:27 Nasal Cannula 2.00 12/02/16 12:00 98.4 78 18 144/74 98 I/O 12/02/16 12/02/16 12/02/16 12/03/16 12/03/16 12/03/16 07:00 15:00 23:00 07:00 15:00 23:00 Intake Total 444 ml 1025 ml Balance 444 ml 1025 ml Intake IV Total 444 ml 1025 ml # Voids 1 3 1 1 Result Diagram: 12/02/16 1326 12/02/16 1326 Imaging Last Impressions Head Magnetic Resonance Angiography 12/02/16 0000 Signed Impressions: Service Date/Time: Friday, December 02, 2016 12:13 - CONCLUSION: Normal examination. Pop Cervantes MD Brain MRI 12/02/16 0000 Signed Impressions: Service Date/Time: Friday, December 02, 2016 12:13 - CONCLUSION: Subacute left thalamic lacunar infarct. Pop Cervantes MD Head CT 12/01/162303 Signed Impressions: Service Date/Time: Thursday, December 01, 2016 23:09 - CONCLUSION: No acute findings. Stable configuration to the ventricles and chronic white matter changes. Dandre Tinoco MD Chest X-Ray 12/01/162303 Signed Impressions: Service Date/Time: Thursday, December 01, 2016 23:34 - CONCLUSION: The lungs are clear. Dandre Tinoco MD Objective Remarks GENERAL: Patient is in no acute distress and alert. HEENT: PERRLA, EOMI. No scleral icterus or conjunctival pallor. No lid lag or facial droop. + Dysarthria that has improved. CARDIOVASCULAR: Regular rate and rhythm. No obvious murmurs to auscultation. No chest tenderness to palpation. RESPIRATORY: Clear to auscultation. Breath sounds equal bilaterally. GASTROINTESTINAL: Abdomen soft, non-tender, nondistended. BS normal. MUSCULOSKELETAL: Extremities without clubbing, cyanosis, or edema. No obvious deformities. NEUROLOGICAL: AAO X 3. CN 2-12 intact. Slight weak handgrip of the right side. Right lower extremity weakness but seems to be more due to chronic right knee pain. Left-sided strength intact. Sensation is tach. Medications and IVs Current Medications Sodium Chloride 2 ml 2 ml UNSCH PRN IVF FLUSH AFTER USING IV ACCESS; Start at 23:15; Stop 12/02/16 at 01:11; Status DC Sodium Chloride (NS 500 ml Inj) 500 ml @ 500 mls/hr BOLUS ONCE IV Last administered on 12/01/16 23:15; Start 12/01/16 at 23:15; Stop 12/02/16 at 00:14 ; Status DC Aspirin (Aspirin Supp) 300 mg ONCE ONCE RECTAL Last administered on 12/01/16 23:58; Start 12/01/16 at 23:30; Stop 12/01/16 at 23:31; Status DC Insulin Human Regular (NovoLIN R INJ) 8 units ONCE ONCE IV PUSH Last administered on 12/02/16 00:41; Start 12/02/16 at 00:15; Stop 12/02/16 at 00:16 ; Status DC Insulin Aspart 10 units 10 units ONCE ONCE SQ Last administered on 12/02/16 00:42; Start 12/02/16 at 00:15; Stop 12/02/16 at 00:16; Status DC Sodium Chloride (NS 1000 ml Inj) 1,000 ml @ 999 mls/hr BOLUS ONCE IV Last administered on 12/02/16 00:40; Start 12/02/16 at 00:30; Stop 12/02/16 at 01:30 ; Status DC IV Flush (NS Flush) 2 ml BID IV FLUSH ; Start 12/02/16 at 09:00; Stop 12/02/16 at 09:00; Status DC IV Flush (NS Flush) 2 ml UNSCH PRN IV FLUSH FLUSH AFTER USING IV ACCESS; Start 12/02/16 at 01:00; Stop 12/02/16 at 01:11; Status DC Enalaprilat (Vasotec Inj) 1.25 mg Q4H PRN IV For SBP > 220 or DBP > 120; Start 12/02/16 at 01:00 Aspirin (Aspirin Supp) 300 mg DAILY RECTAL Last administered on 12/03/16 08:03 ; Start 12/02/16 at 09:00 Insulin Aspart (NovoLOG SUPPLEMENTAL SCALE) 1 ACHS SQ Last administered on 12/02 06:07; Start 12/02/16 at 07:00; Stop 12/02/16 at 09:08; Status DC Dextrose (D50w (Vial) Inj) 50 ml UNSCH PRN IV PUSH HYPOGLYCEMIA-SEE COMMENTS; Start 12/02/16 at 01:00 Glucagon 1 mg 1 mg UNSCH PRN OTHER HYPOGLYCEMIA-SEE COMMENTS; Start 12/02/16 at 01:00 Sodium Chloride (NS 1000 ml Inj) 1,000 ml @ 100 mls/hr Q10H IV Last administered on 12/03/16 08:02; Start 12/02/16 at 00:59 Sodium Chloride (NS Flush) 2 ml UNSCH PRN IV FLUSH FLUSH AFTER USING IV ACCESS ; Start 12/02/16 at 01:00 Sodium Chloride (NS Flush) 2 ml BID IV FLUSH Last administered on 12/03/16 08: 03; Start 12/02/16 at 09:00 Ondansetron HCl (Zofran Inj) 4 mg Q6H PRN IVP NAUSEA OR VOMITING; Start at 01:00 Acetaminophen (Ofirmev Inj) 1,000 mg Q6H PRN IV FEVER; Start 12/02/16 at 01:00 ; Stop 12/02/16 at 19:01; Status DC Senna/Docusate Sodium (Barbie-Colace) 1 tab BID PO ; Start 12/02/16 at 09:00 Magnesium Hydroxide (Milk Of Magnesia Liq) 30 ml Q12H PRN PO MILD - MODERATE CONSTIPATION; Start 12/02/16 at 01:00 Sennosides (Senokot) 17.2 mg Q12H PRN PO MODERATE - SEVERE CONSTIPATION; Start 12/02/16 at 01:00 Bisacodyl (Dulcolax Supp) 10 mg DAILY PRN RECTAL SEVERE CONSITIPATION; Start at 01:00 Lactulose (Lactulose Liq) 30 ml DAILY PRN PO SEVERE CONSITIPATION; Start at 01:00 Labetalol HCl (Trandate Inj) 20 mg ONCE ONCE IV PUSH Last administered on 12/02 02:11; Start 12/02/16 at 02:00; Stop 12/02/16 at 02:01; Status DC Insulin Detemir (Levemir Inj) 20 units Q12HR SQ Last administered on 12/03/16 07:59; Start 12/02/16 at 09:15 Insulin Aspart (NovoLOG SUPPLEMENTAL SCALE) 1 ACHS SLIDING SCALE SQ Last administered on 12/02/16 20:18; Start 12/02/16 at 11:00 Lisinopril (Prinivil) 5 mg DAILY PO ; Start 12/03/16 at 09:45 A/P Problem List: (1) CVA (cerebral vascular accident) ICD Code: I63.9 Status: Acute (2) SRINIVASAN (acute kidney injury) ICD Code: N17.9 Status: Acute (3) HTN (hypertension) ICD Code: I10 Status: Acute (4) DM (diabetes mellitus) ICD Code: E11.9 Status: Acute Assessment and Plan Subacute left thalamic lacunar infarct. -Deficits are dysarthria with some right-sided weakness. Symptoms improving. -CT Head w/ no acute findings. MRI shows subacute left thalamic lacunar infarct. MRA is negative. Pending Echo. - Patient being evaluated by speech therapist and stated that nothing by mouth for now. Nurse to call space therapist again today to see if patient can tolerate oral intake since dysarthria is improving. -Consult PT and OT. -Allow permissive hypertension for 24 hours so we will control blood pressure better once patient is well take oral intake, but will treat is SBP>220 or DBP> 120. -Patient is on aspirin. LDL 107 will start statin. LFTs within normal limits. Acute on chronic renal failure: Creatinine 2.01, previously 1.23 on 06/06/16 -This may be acute on chronic acute renal failure due to uncontrolled diabetes. Patient most likely have underlying diabetic nephropathy. -Creatinine/GFR improved. -Avoid nephrotoxins. -Continue with IV fluids. HTN: BP 150 -Will start lisinopril once patient can tell her by mouth intake. DM: Uncontrolled. BS 674, s/p Insulin/IVF in ER -Hemoglobin A1c 15 -Patient is on insulin sliding scale and Levemir 20 units twice a day. Will need aggressive control especially in light of a CVA. -At the moment blood sugars running in the 150s. -Will put clinical document improvement educator and dietitian consult. DVT Prophylaxis: SCD/Teds. Discharge Planning Will need to be evaluated by PT/OT to see if patient needs to go to a rehabilitation center after she is medically stable. Yusra Perdue MD Dec 03, 2016 11:19
--- NOTE | 2016-12-03 11:34 | ECHRPT ---
Indication: CVT CONCLUSIONS Normal left ventricular size. Left ventricular systolic function is normal with an estimated ejection fraction in the range of 60- 65%. No regional wall motion abnormalities are present. Mild to moderate left ventricular hypertrophy. Structurally normal mitral valve. Trace mitral valve regurgitation. Trileaflet aortic valve. Trace aortic valve regurgitation. Structurally normal tricuspid valve. There is trace tricuspid valve regurgitation. BP: 132 / 69 HR: 80 Rhythm: MEASUREMENTS (Male / Female) Normal Values Technical Quality: 2D ECHO LV Diastolic Diameter PLAX 3.6 cm 4.2 - 5.9 / 3.9 - 5.3 cm LV Systolic Diameter PLAX 2.5 cm IVS Diastolic Thickness 1.6 cm 0.6 - 1.0 / 0.6 - 0.9 cm LVPW Diastolic Thickness 1.3 cm 0.6 - 1.0 / 0.6 - 0.9 cm LV Relative Wall Thickness 0.8 RV Internal Dim ED PLAX 2.6 cm M-MODE Aortic Root Diameter MM 3.0 cm LA Systolic Diameter MM 3.3 cm LA Ao Ratio MM 1.1 AV Cusp Separation MM 1.5 cm DOPPLER Mitral E Point Velocity 62.4 cm/s Mitral A Point Velocity 109.0 cm/s Mitral E to A Ratio 0.6 LV E' Lateral Velocity 5.9 cm/s Mitral E to LV E' Lateral Ratio 10.7 LV E' Septal Velocity 0.1 cm/s Mitral E to LV E' Septal Ratio 643.3 FINDINGS LEFT VENTRICLE Normal left ventricular size. Left ventricular systolic function is normal with an estimated ejection fraction in the range of 60- 65%. No regional wall motion abnormalities are present. Mild to moderate left ventricular hypertrophy. RIGHT VENTRICLE The right ventricular size is normal. LEFT ATRIUM The left atrial size is normal. RIGHT ATRIUM The right atrial size is normal. ATRIAL SEPTUM Normal atrial septal thickness without atrial level shunting by limited color doppler interrogation. AORTA The aortic root and proximal ascending aorta are not well visualized. MITRAL VALVE Structurally normal mitral valve. Trace mitral valve regurgitation. AORTIC VALVE Trileaflet aortic valve. Trace aortic valve regurgitation. No aortic valve stenosis. TRICUSPID VALVE Structurally normal tricuspid valve. There is trace tricuspid valve regurgitation. PULMONARY VALVE The pulmonary valve is not well visualized. Trivial pulmonary valve regurgitation. VESSELS The inferior vena cava is normal in size. PERICARDIUM No pericardial effusion. Tristan Moss MD (Electronically Signed) Final Date:03 December 2016 11:33
[2016-12-03] MEDS ORDERED: ACETAMINOPHEN 500 MG CPLT PO PRN (17:00)
--- NOTE | 2016-12-03 20:45 | HHI.PR ---
Review/Management Diagnosis 1. Acute/subacute left thalamus ischemic lacunar stroke Likely secondary to uncontrolled diabetes and hypertension 2. Diabetes mellitus 3. Hypertension 4. Hypercholesteremia 5. Morbid obesity 6. SRINIVASAN Plan 1. Neuro checks q. 4 hourly 2. Aspirin 325 mg 3. Control of blood sugar. 4. DVT prophylaxis 5. PT/OT recommendations are appreciated 6. GI prophylaxis 7. CUS Diagnosis/Plan: Subjective Subjective Comments Patient sits on a chair, eating, with very mild difficulty in swallowing Improving dysarthria Mild weakness UE& LE MRI brain revealed acute left thalamic lacunar ischemic stroke MRA head is unremarkable Cardiac ECHO revealed an EF of 60-65% and structurally normal heart valves Active Medications Current Medications Medications (Trade) Dose Ordered Sig/Tresa Route Start Time Stop Time Status Last Admin (Vasotec Inj) 1.25 mg Q4H PRN IV 12/02/16 01:00 (Aspirin Supp) 300 mg DAILY RECTAL 12/02/16 09:00 12/03/16 08:03 (D50w (Vial) Inj) 50 ml UNSCH PRN IV PUSH 12/02/16 01:00 Glucagon 1 mg 1 mg UNSCH PRN OTHER 12/02/16 01:00 (NS 1000 ml Inj) 1,000 ml @ 100 mls/hr Q10H IV 12/02/16 00:59 12/03/16 08:02 (NS Flush) 2 ml UNSCH PRN IV FLUSH 12/02/16 01:00 (NS Flush) 2 ml BID IV FLUSH 12/02/16 09:00 12/03/16 08:03 (Zofran Inj) 4 mg Q6H PRN IVP 12/02/16 01:00 (Barbie-Colace) 1 tab BID PO 12/02/16 09:00 (Milk Of Magnesia Liq) 30 ml Q12H PRN PO 12/02/16 01:00 (Senokot) 17.2 mg Q12H PRN PO 12/02/16 01:00 (Dulcolax Supp) 10 mg DAILY PRN RECTAL 12/02/16 01:00 (Lactulose Liq) 30 ml DAILY PRN PO 12/02/16 01:00 (Levemir Inj) 20 units Q12HR SQ 12/02/16 09:15 12/03/16 07:59 (Prinivil) 5 mg DAILY PO 12/03/16 09:45 (Lipitor) 40 mg HS PO 12/03/16 21:00 (Tylenol) 500 mg Q6H PRN PO 12/03/16 17:00 Allergies Allergies Coded Allergies No Known Allergies (Verified12/02/16) Uncoded Allergies [facility] ( Allergy, Unknown, 05/03/09) Review of Systems All other ROS: ROS reviewed as documented in chart Exam I&O / VS 12/02/16 12/02/16 12/03/16 15:00 23:00 07:00 Intake Total 1025 ml Balance 1025 ml Intake IV Total 1025 ml # Voids 3 1 1 Vital Signs Date Time Temp Pulse Resp B/P Pulse Ox O2 Delivery O2 Flow Rate FiO2 12/03/16 16:00 99.2 89 18 123/79 98 12/03/16 12:00 97.0 79 17 127/81 96 12/03/16 08:03 98 Nasal Cannula 2.00 12/03/16 08:00 97.2 76 18 135/82 99 12/03/16 07:10 74 12/03/16 04:00 97.3 81 20 161/91 98 12/03/16 00:00 98.0 78 20 155/110 99 Exam Comments GENERAL: Sits in a chair, not in apparent distress HEENT: Atraumatic, normocephalic with bilateral ptosis/chronic?, dysarthria. Intact hearing. Intact vision. CARDIOVASCULAR: Regular rate and rhythm. RESPIRATORY: Clear to auscultation. No wheezes. ABDOMEN: Soft abdomen nontender. MUSCULOSKELETAL: Without clubbing, cyanosis or edema. No obvious deformity. NEUROLOGIC: Awake, alert, oriented to time, person and place. Dysarthria. No dysphasia, intact reading, naming and comprehension. Bilateral ptosis, questionable chronic. Her pupils are 3 mm bilaterally equally reacting to light and accommodation. No diplopia. No nystagmus. Mild right facial weakness. Intact palate elevation. Normal tongue. Motor system, right shoulder abduction 4+/5 right hip flexion, foot dorsiflexion 4+/5. The rest of the motor system is unremarkable. No abnormal movements. Normal tone. Cerebellar function is intact. Glove and stockings distribution of sensory abnormality. Intact finger- to-nose on exam. PSYCHOLOGICAL: Calm, cooperative and no hallucinations. Objective Radiology Results Last 72 hours Impressions Head Magnetic Resonance Angiography 12/02/16 0000 Signed Impressions: Service Date/Time: Friday, December 02, 2016 12:13 - CONCLUSION: Normal examination. Pop Cervantes MD Brain MRI 12/02/16 0000 Signed Impressions: Service Date/Time: Friday, December 02, 2016 12:13 - CONCLUSION: Subacute left thalamic lacunar infarct. Pop Cervantes MD Head CT 12/01/162303 Signed Impressions: Service Date/Time: Thursday, December 01, 2016 23:09 - CONCLUSION: No acute findings. Stable configuration to the ventricles and chronic white matter changes. Dandre Tinoco MD Chest X-Ray 12/01/162303 Signed Impressions: Service Date/Time: Thursday, December 01, 2016 23:34 - CONCLUSION: The lungs are clear. MD Ayse Torres Raid G. MD Dec 03, 2016 20:45
[2016-12-03] MEDS: ATORVASTATIN 40 MG TAB PO SCH (21:50)
[2016-12-04] VITALS (10 sets, daily range): BP systolic 153–187; BP diastolic 71–97; PULSE 79–97; RESP 18–20; TEMP 96.7–98.3; O2SAT 97–99
--- NOTE | 2016-12-04 00:20 | RADRPT ---
EXAM DATE/TIME: 12/03/2016 22:58 [place] COMPARISON: No previous studies available for comparison. INDICATIONS : Cerebrovascular accident. MEDICAL HISTORY : Hypercholesterolemia. Hypertension. Gastroesophageal reflux disease. Asthma. Dyspnea. Diabetes. CVA. Cardiac disorders. SURGICAL HISTORY : Scalp surgery. ENCOUNTER: Initial ACUITY: 1 day PAIN SCORE: 10 LOCATION: Bilateral neck PEAK SYSTOLIC VELOCITIES (cm/sec): ICA/CCA RATIO: Right: 1.3 Left: 0.9 ICA: Right: 86.4 Left: 74.3 CCA: Right: 67.7 Left: 85.3 ECA: Right: 53.7 Left: 40.2 VERTEBRAL: Right: 40.7 antegrade Left: 75.4 antegrade Elevated flow velocities and ICA/CCA ratios have been found to correlate with increased degrees of vessel stenosis, calculated as percentage of diameter relative to a normal segment of distal ICA/CCA FINDINGS: RIGHT CAROTID: No significant stenosis is visualized. The waveforms are within normal limits. LEFT CAROTID: No significant stenosis is visualized. The waveforms are within normal limits. VERTEBRAL ARTERIES: Antegrade flow is seen in both vertebral arteries. MISCELLANEOUS: None. CONCLUSION: Normal hemodynamic profile bilateral carotids. Dandre Tinoco MD on December 04, 2016 at 0:18 Board Certified Radiologist. This report was verified electronically.
[2016-12-04] MEDS: INSULIN DETEMIR 100 UNITS/ML VIAL SQ SCH ×3 (01:41→21:00)
[2016-12-04] MEDS: INSULIN ASPART SUPPLEMENTAL SCALE SQ SCH ×5 (01:42→21:00)
[2016-12-04] MEDS: SODIUM CHLOR 0.9% 1000 ML INJ 1,000 ML IV SCH ×3 (06:43→22:59)
[2016-12-04] MEDS: LISINOPRIL 5 MG TAB PO SCH (07:50)
[2016-12-04] MEDS: DOCUSATE SODIUM 50 MG/SENNA 8.6 MG TAB PO SCH ×2 (07:51→21:42)
[2016-12-04] MEDS: SODIUM CHLORIDE 0.9% FLUSH 10 ML FLUSH IV FLUSH SCH ×2 (07:51→21:42)
[2016-12-04] MEDS: ASPIRIN 325 MG TAB PO SCH (07:51)
--- NOTE | 2016-12-04 09:06 | HHI.PR ---
Review/Management Diagnosis 1. Acute/subacute left thalamus ischemic lacunar stroke Likely secondary to uncontrolled diabetes and hypertension 2. Diabetes mellitus 3. Hypertension 4. Hypercholesteremia 5. Morbid obesity 6. SRINIVASAN Plan 1. Neuro checks q. 4 hourly 2. Aspirin 325 mg 3. Atorvastatin 40mg 4. Control of blood sugar. 5. DVT prophylaxis 6. PT/OT recommendations are appreciated 7. GI prophylaxis 8. Can be transferred to progressive unit 9. Needs rehab & placement Diagnosis/Plan: Subjective Subjective Comments No acute events reported Improved speech and swallowing CUS revealed no hemodynamically significant stenosis No complaints Active Medications Current Medications Medications (Trade) Dose Ordered Sig/Tresa Route Start Time Stop Time Status Last Admin (Vasotec Inj) 1.25 mg Q4H PRN IV 12/02/16 01:00 (D50w (Vial) Inj) 50 ml UNSCH PRN IV PUSH 12/02/16 01:00 Glucagon 1 mg 1 mg UNSCH PRN OTHER 12/02/16 01:00 (NS 1000 ml Inj) 1,000 ml @ 100 mls/hr Q10H IV 12/02/16 00:59 12/04/16 06:43 (NS Flush) 2 ml UNSCH PRN IV FLUSH 12/02/16 01:00 (NS Flush) 2 ml BID IV FLUSH 12/02/16 09:00 12/04/16 07:51 (Zofran Inj) 4 mg Q6H PRN IVP 12/02/16 01:00 (Barbie-Colace) 1 tab BID PO 12/02/16 09:00 12/04/16 07:51 (Milk Of Magnesia Liq) 30 ml Q12H PRN PO 12/02/16 01:00 (Senokot) 17.2 mg Q12H PRN PO 12/02/16 01:00 (Dulcolax Supp) 10 mg DAILY PRN RECTAL 12/02/16 01:00 (Lactulose Liq) 30 ml DAILY PRN PO 12/02/16 01:00 (Levemir Inj) 20 units Q12HR SQ 12/02/16 09:15 12/04/16 07:51 (Prinivil) 5 mg DAILY PO 12/03/16 09:45 12/04/16 07:50 (Lipitor) 40 mg HS PO 12/03/16 21:00 12/03/16 21:50 (Tylenol) 500 mg Q6H PRN PO 12/03/16 17:00 (Aspirin) 325 mg DAILY PO 12/04/16 09:00 12/04/16 07:51 Allergies Allergies Coded Allergies No Known Allergies (Verified12/02/16) Uncoded Allergies [facility] ( Allergy, Unknown, 05/03/09) Review of Systems All other ROS: ROS reviewed as documented in chart Exam I&O / VS Vital Signs Date Time Temp Pulse Resp B/P Pulse Ox O2 Delivery O2 Flow Rate FiO2 12/04/16 08:01 89 12/04/16 04:00 97.6 97 20 153/72 97 12/04/16 03:06 82 12/04/16 00:00 97.0 92 20 155/71 99 12/03/16 20:51 97 21 12/03/16 20:00 96.6 88 20 137/90 99 12/03/16 16:00 99.2 89 18 123/79 98 12/03/16 12:00 97.0 79 17 127/81 96 Exam Comments GENERAL: Sits in a chair, not in apparent distress HEENT: Atraumatic, normocephalic with bilateral ptosis/chronic?, mild dysarthria. Intact hearing. Intact vision. CARDIOVASCULAR: Regular rate and rhythm. RESPIRATORY: Clear to auscultation. No wheezes. ABDOMEN: Soft abdomen nontender. MUSCULOSKELETAL: No clubbing, cyanosis or edema. No obvious deformity. NEUROLOGIC: Awake, alert, oriented to time, person and place. mils dysarthria. No dysphasia, intact reading, naming and comprehension. Bilateral ptosis, questionable chronic. Pupils are 3 mm bilaterally equally reacting to light and accommodation. No diplopia. No nystagmus. Mild right facial weakness. Intact palate elevation. Normal tongue. Motor system, right shoulder abduction 4+/5 right hip flexion, foot dorsiflexion 4+/5. The rest of the motor system is unremarkable. No abnormal movements. Normal tone. Cerebellar function is intact. Glove and stockings distribution of sensory abnormality. Intact [id number] on exam. PSYCHOLOGICAL: Calm, cooperative, with no hallucinations. Objective Radiology Results Last 72 hours Impressions Carotid Artery Ultrasound 12/03/16 0000 Signed Impressions: Service Date/Time: Saturday, December 03, 2016 22:58 - CONCLUSION: Normal hemodynamic profile bilateral carotids. Dandre Tinoco MD Head Magnetic Resonance Angiography 12/02/16 0000 Signed Impressions: Service Date/Time: Friday, December 02, 2016 12:13 - CONCLUSION: Normal examination. Pop Cervantes MD Brain MRI 12/02/16 0000 Signed Impressions: Service Date/Time: Friday, December 02, 2016 12:13 - CONCLUSION: Subacute left thalamic lacunar infarct. Pop Cervantes MD Head CT 12/01/162303 Signed Impressions: Service Date/Time: Thursday, December 01, 2016 23:09 - CONCLUSION: No acute findings. Stable configuration to the ventricles and chronic white matter changes. Dandre Tinoco MD Chest X-Ray 12/01/162303 Signed Impressions: Service Date/Time: Thursday, December 01, 2016 23:34 - CONCLUSION: The lungs are clear. Dandre Tinoco MD OssiOrtiz MD Dec 04, 2016 09:06
[2016-12-04] MEDS ORDERED: amLODIPine BESYLATE 5 MG TAB PO SCH (09:45)
[2016-12-04] MEDS ORDERED: ACETAMINOPHEN/HYDROcodone 325 MG/5 MG TAB PO PRN (10:00)
[2016-12-04 10:19] LABS: BICARBONATE 23.3 MEQ/L (21.0-32.0); POTASSIUM 4.1 MEQ/L (3.5-5.1)
--- NOTE | 2016-12-04 11:12 | HHI.PR ---
Subjective Remarks Follow-up for CVA, uncontrolled hypertension, and uncontrolled diabetes Patient complaining of her left knee pain and is asking for a stronger pain medication. Otherwise she has no complaints. Patient is able to tell me her name and location although she does have dysarthria. Patient also stated that she stopped tolerating oral intake. No new focal neurological deficit. Objective Vitals Vital Signs Date Time Temp Pulse Resp B/P Pulse Ox O2 Delivery O2 Flow Rate FiO2 12/04/16 11:03 98 21 12/04/16 08:01 89 12/04/16 08:00 98.3 88 18 174/89 98 12/04/16 04:00 97.6 97 20 153/72 97 12/04/16 03:06 82 12/04/16 00:00 97.0 92 20 155/71 99 12/03/16 20:51 97 21 12/03/16 20:00 96.6 88 20 137/90 99 12/03/16 16:00 99.2 89 18 123/79 98 12/03/16 12:00 97.0 79 17 127/81 96 I/O 12/03/16 12/03/16 12/03/16 12/04/16 12/04/16 12/04/16 07:00 15:00 23:00 07:00 15:00 23:00 # Voids 1 5 1 5 # Bowel Movements 1 Result Diagram: 12/02/16 1326 12/04/16 0845 Objective Remarks GENERAL: Patient is in no acute distress and alert. HEENT: PERRLA, EOMI. No scleral icterus or conjunctival pallor. No lid lag or facial droop. + Dysarthria that has improved. CARDIOVASCULAR: Regular rate and rhythm. No obvious murmurs to auscultation. No chest tenderness to palpation. RESPIRATORY: Clear to auscultation. Breath sounds equal bilaterally. GASTROINTESTINAL: Abdomen soft, non-tender, nondistended. BS normal. MUSCULOSKELETAL: Extremities without clubbing, cyanosis, or edema. No obvious deformities. NEUROLOGICAL: AAO X 3. CN 2-12 intact. Slight weak handgrip of the right side. Right lower extremity weakness but seems to be more due to chronic right knee pain. Left-sided strength intact. Sensation is tach. Medications and IVs Current Medications Sodium Chloride 2 ml 2 ml UNSCH PRN IVF FLUSH AFTER USING IV ACCESS; Start at 23:15; Stop 12/02/16 at 01:11; Status DC Sodium Chloride (NS 500 ml Inj) 500 ml @ 500 mls/hr BOLUS ONCE IV Last administered on 12/01/16 23:15; Start 12/01/16 at 23:15; Stop 12/02/16 at 00:14 ; Status DC Aspirin (Aspirin Supp) 300 mg ONCE ONCE RECTAL Last administered on 12/01/16 23:58; Start 12/01/16 at 23:30; Stop 12/01/16 at 23:31; Status DC Insulin Human Regular (NovoLIN R INJ) 8 units ONCE ONCE IV PUSH Last administered on 12/02/16 00:41; Start 12/02/16 at 00:15; Stop 12/02/16 at 00:16 ; Status DC Insulin Aspart 10 units 10 units ONCE ONCE SQ Last administered on 12/02/16 00:42; Start 12/02/16 at 00:15; Stop 12/02/16 at 00:16; Status DC Sodium Chloride (NS 1000 ml Inj) 1,000 ml @ 999 mls/hr BOLUS ONCE IV Last administered on 12/02/16 00:40; Start 12/02/16 at 00:30; Stop 12/02/16 at 01:30 ; Status DC IV Flush (NS Flush) 2 ml BID IV FLUSH ; Start 12/02/16 at 09:00; Stop 12/02/16 at 09:00; Status DC IV Flush (NS Flush) 2 ml UNSCH PRN IV FLUSH FLUSH AFTER USING IV ACCESS; Start 12/02/16 at 01:00; Stop 12/02/16 at 01:11; Status DC Enalaprilat (Vasotec Inj) 1.25 mg Q4H PRN IV For SBP > 220 or DBP > 120; Start 12/02/16 at 01:00 Aspirin (Aspirin Supp) 300 mg DAILY RECTAL Last administered on 12/03/16 08:03 ; Start 12/02/16 at 09:00; Stop 12/03/16 at 20:49; Status DC Insulin Aspart (NovoLOG SUPPLEMENTAL SCALE) 1 ACHS SQ Last administered on 12/02 06:07; Start 12/02/16 at 07:00; Stop 12/02/16 at 09:08; Status DC Dextrose (D50w (Vial) Inj) 50 ml UNSCH PRN IV PUSH HYPOGLYCEMIA-SEE COMMENTS; Start 12/02/16 at 01:00 Glucagon 1 mg 1 mg UNSCH PRN OTHER HYPOGLYCEMIA-SEE COMMENTS; Start 12/02/16 at 01:00 Sodium Chloride (NS 1000 ml Inj) 1,000 ml @ 100 mls/hr Q10H IV Last administered on 12/04/16 06:43; Start 12/02/16 at 00:59 Sodium Chloride (NS Flush) 2 ml UNSCH PRN IV FLUSH FLUSH AFTER USING IV ACCESS ; Start 12/02/16 at 01:00 Sodium Chloride (NS Flush) 2 ml BID IV FLUSH Last administered on 12/04/16 07: 51; Start 12/02/16 at 09:00 Ondansetron HCl (Zofran Inj) 4 mg Q6H PRN IVP NAUSEA OR VOMITING; Start at 01:00 Acetaminophen (Ofirmev Inj) 1,000 mg Q6H PRN IV FEVER; Start 12/02/16 at 01:00 ; Stop 12/02/16 at 19:01; Status DC Senna/Docusate Sodium (Barbie-Colace) 1 tab BID PO Last administered on 07:51; Start 12/02/16 at 09:00 Magnesium Hydroxide (Milk Of Magnesia Liq) 30 ml Q12H PRN PO MILD - MODERATE CONSTIPATION; Start 12/02/16 at 01:00 Sennosides (Senokot) 17.2 mg Q12H PRN PO MODERATE - SEVERE CONSTIPATION; Start 12/02/16 at 01:00 Bisacodyl (Dulcolax Supp) 10 mg DAILY PRN RECTAL SEVERE CONSITIPATION; Start at 01:00 Lactulose (Lactulose Liq) 30 ml DAILY PRN PO SEVERE CONSITIPATION; Start at 01:00 Labetalol HCl (Trandate Inj) 20 mg ONCE ONCE IV PUSH Last administered on 12/02 02:11; Start 12/02/16 at 02:00; Stop 12/02/16 at 02:01; Status DC Insulin Detemir (Levemir Inj) 20 units Q12HR SQ Last administered on 12/04/16 07:51; Start 12/02/16 at 09:15; Stop 12/04/16 at 09:46; Status DC Insulin Aspart (NovoLOG SUPPLEMENTAL SCALE) 1 ACHS SLIDING SCALE SQ Last administered on 12/04/16 06:45; Start 12/02/16 at 11:00 Lisinopril (Prinivil) 5 mg DAILY PO Last administered on 12/04/16 07:50; Start 12/03/16 at 09:45 Atorvastatin Calcium (Lipitor) 40 mg HS PO Last administered on 12/03/16 21:50 ; Start 12/03/16 at 21:00 Acetaminophen (Tylenol) 500 mg Q6H PRN PO pain 1-5; Start 12/03/16 at 17:00 Aspirin (Aspirin) 325 mg DAILY PO Last administered on 12/04/16 07:51; Start 12/04/16 at 09:00 Insulin Detemir (Levemir Inj) 25 units Q12HR SQ ; Start 12/04/16 at 21:00 Amlodipine Besylate (Norvasc) 5 mg DAILY PO ; Start 12/04/16 at 09:45 Acetaminophen/ Hydrocodone Bitart ([place] 5-325 Mg) 1 tab Q4H PRN PO pain 6-10 ; Start 12/04/16 at 10:00 A/P Problem List: (1) CVA (cerebral vascular accident) ICD Code: I63.9 Status: Acute (2) SRINIVASAN (acute kidney injury) ICD Code: N17.9 Status: Acute (3) HTN (hypertension) ICD Code: I10 Status: Acute (4) DM (diabetes mellitus) ICD Code: E11.9 Status: Acute Assessment and Plan Subacute left thalamic lacunar infarct. -Deficits are dysarthria with some right-sided weakness. Symptoms improving. -CT Head w/ no acute findings. MRI shows subacute left thalamic lacunar infarct. MRA is negative. Echo showing mild to moderate hypertrophy otherwise normal. - PT/OT/speech therapists are following. -We'll control blood pressure. -Patient is on aspirin. LDL 107 so statin was started.. LFTs within normal limits. Acute on chronic renal failure: Creatinine 2.01, previously 1.23 on 06/06/16 -This may be acute on chronic acute renal failure due to uncontrolled diabetes. Patient most likely have underlying diabetic nephropathy. -Creatinine/GFR improved. -Avoid nephrotoxins. -Continue with IV fluids. HTN: BP 150 -On lisinopril and will add amlodipine. DM: Uncontrolled. BS 674, s/p Insulin/IVF in ER -Hemoglobin A1c 15 -Since patient is now tolerating by mouth intake blood sugars are increasing. Ruperto increase Levemir to 25 units twice a day. -Continue with insulin sliding scale. -art educator and dietitian were consulted. Chronic left knee pain -Not controlled with Tylenol. Will try [place]. DVT Prophylaxis: SCD/Teds. Discharge Planning patient is being evaluated by CIR. dealt with case management. Yusra Perdue MD Dec 04, 2016 11:11
[2016-12-04] MEDS ORDERED: amLODIPine BESYLATE 5 MG TAB PO ONE (16:00)
[2016-12-04] MEDS: ATORVASTATIN 40 MG TAB PO SCH (21:42)
[2016-12-05] VITALS: BP 172/68; PULSE 92; RESP 20; TEMP 96.7; O2SAT 98
[2016-12-05 04:00] VITALS: BP 196/93; PULSE 86; RESP 22; TEMP 98.7; O2SAT 99
[2016-12-05] MEDS: INSULIN ASPART SUPPLEMENTAL SCALE SQ SCH ×3 (06:43→17:09)
[2016-12-05 07:00] VITALS: PULSE 81
[2016-12-05] MEDS: SODIUM CHLOR 0.9% 1000 ML INJ 1,000 ML IV SCH (08:26)
[2016-12-05] MEDS: SODIUM CHLORIDE 0.9% FLUSH 10 ML FLUSH IV FLUSH SCH (08:26)
[2016-12-05] MEDS: DOCUSATE SODIUM 50 MG/SENNA 8.6 MG TAB PO SCH (08:27)
[2016-12-05] MEDS: ASPIRIN 325 MG TAB PO SCH (08:27)
[2016-12-05 08:53] VITALS: BP 193/101; PULSE 89; RESP 20; TEMP 96.9; O2SAT 98
[2016-12-05] MEDS: INSULIN DETEMIR 100 UNITS/ML VIAL SQ SCH (09:32)
[2016-12-05 09:35] LABS: BICARBONATE 24.4 MEQ/L (21.0-32.0)
[2016-12-05 12:00] VITALS: BP 159/97; PULSE 90; RESP 20; TEMP 96.5; O2SAT 97
[2016-12-05] MEDS ORDERED: hydrALAZINE HCL 50 MG TAB PO SCH (12:00)
[2016-12-05] MEDS ORDERED: ASPI325T PO (15:18)
[2016-12-05] MEDS ORDERED: HYDR-3800 PO (15:18)
[2016-12-05] MEDS ORDERED: HYDR-3516 PO (15:18)
[2016-12-05] MEDS ORDERED: LEVEMIR SQ (15:18)
[2016-12-05] MEDS ORDERED: ATOR40TA16 PO (15:18)
[2016-12-05] MEDS ORDERED: SENN1TAB PO (15:18)
[2016-12-05] MEDS ORDERED: AMLO10 PO (15:18)
--- NOTE | 2016-12-05 15:19 | HHI.DS ---
Discharge Summary Admission Date Dec 02, 2016 at 00:48 Discharge Date: Dec 05, 2016 Admitting Diagnosis CVA with dysarthria, hyperglycemia, acute kidney injury (1) CVA (cerebral vascular accident) ICD Code: I63.9 Diagnosis: Principal (2) SRINIVASAN (acute kidney injury) ICD Code: N17.9 Diagnosis: Principal (3) HTN (hypertension) ICD Code: I10 Diagnosis: Secondary (4) DM (diabetes mellitus) ICD Code: E11.9 Diagnosis: Secondary Procedures see hospital course Brief History - From Admission This is a 71-year-old female with a PMH of HTN, Hyperlipidemia, DM and h/o CVA was brought to the ER by EMS secondary to stroke like symptoms. Pt w/ acute onset of dysarthria starting earlier today, however unable to provide exact time , therefore no Stroke Alert initiated. Denies numbness or weakness. Previous CVA "years ago" w/ left-sided hemiparesis and slurred speech, completely resolved. Was on ASA however states taken off approx 1yr ago by PCP. On arrival, BP 154/81, HR 102, O2 sat 97% on RA, Afebrile. CBC normal. Creatinine 2.01, previously 1.23 on 06/06/16. BS 674. INR 0.9. CXR with no acute findings. CT Head negative for acute findings. S/p IVF, Insulin and ASA CT in ER. Pt w/ persistent dysarthria. CBC/BMP: 12/02/16 1326 12/05/16 0801 Significant Findings Laboratory Tests Test 12/04/16 12/05/16 08:45 08:01 Blood Urea Nitrogen 31 MG/DL (7-18) 25 MG/DL (7-18) Creatinine 1.54 MG/DL 1.31 MG/DL (0.50-1.00) (0.50-1.00) Estimat Glomerular Filtration 40 ML/MIN (>89) 49 ML/MIN (>89) Rate Random Glucose 275 MG/DL 151 MG/DL (74-106) (74-106) Imaging Last Impressions Carotid Artery Ultrasound 12/03/16 0000 Signed Impressions: Service Date/Time: Saturday, December 03, 2016 22:58 - CONCLUSION: Normal hemodynamic profile bilateral carotids. Dandre Tinoco MD Head Magnetic Resonance Angiography 12/02/16 Signed Impressions: Service Date/Time: Friday, December 02, 2016 12:13 - CONCLUSION: Normal examination. Pop Cervantes MD Brain MRI 12/02/16 Signed Impressions: Service Date/Time: Friday, December 02, 2016 12:13 - CONCLUSION: Subacute left thalamic lacunar infarct. Pop Cervantes MD Head CT 12/01/162303 Signed Impressions: Service Date/Time: Thursday, December 01, 2016 23:09 - CONCLUSION: No acute findings. Stable configuration to the ventricles and chronic white matter changes. Dandre Tinoco MD Chest X-Ray 12/01/162303 Signed Impressions: Service Date/Time: Thursday, December 01, 2016 23:34 - CONCLUSION: The lungs are clear. Dandre Tinoco MD PE at Discharge GENERAL: Patient is in no acute distress and alert. HEENT: PERRLA, EOMI. No scleral icterus or conjunctival pallor. No lid lag or facial droop. + Dysarthria that has improved. CARDIOVASCULAR: Regular rate and rhythm. No obvious murmurs to auscultation. No chest tenderness to palpation. RESPIRATORY: Clear to auscultation. Breath sounds equal bilaterally. GASTROINTESTINAL: Abdomen soft, non-tender, nondistended. BS normal. MUSCULOSKELETAL: Extremities without clubbing, cyanosis, or edema. No obvious deformities. NEUROLOGICAL: AAO X 3. CN 2-12 intact. 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 4/5 left lower extremity weakness. right-sided strength intact. Sensation grossly intact. Pt update on day of discharge f/u for CVA, uncontrolled HTN, uncontrolled DM, and left knee pain patient has no complaints. tech as BS and SBP in 150s. speech improving. AAO X 3. knee pain better controlled. no new focal neurological deficits. Hospital Course Subacute left thalamic lacunar infarct. -Deficits are dysarthria with some left-sided weakness. -Neurologist consulted. -CT Head w/ no acute findings. MRI shows subacute left thalamic lacunar infarct. MRA is negative. Echo showing mild to moderate hypertrophy otherwise normal. - PT/OT/speech therapists are following and recommended rehab. -Patient put on aspirin. LDL 107 so statin was started. LFTs within normal limits. -initially allowed permissive HTN for 24-48 hours then BP controlled with amlodipine and hydralazine. Tried lisinopril but that was discontinue due to worsening of renal function on lisinopril. May want to try restarting medication later once renal function is more stabilized. Acute on chronic renal failure: Creatinine 2.01, previously 1.23 on 06/06/16 -This may be acute on chronic acute renal failure due to uncontrolled diabetes. Patient most likely have underlying diabetic nephropathy. -started on IVFs and renal functioned improved. good UOP. added lisinopril when renal function improved but then worsened on medication so that was discontinued. HTN: -initially allowed permissive HTN. then added amlodipine and hydralazine for better control. T2DM insulin dependent: Uncontrolled. BS 674 on admission -Hemoglobin A1c 15.7 -patient started on levemir at 20 units BID then increased to 25 BID with better control. -also on SSI. -coding educator and dietitian were consulted. Chronic left knee pain -Not controlled with Tylenol so was put on norco. Pt Condition on Discharge: Stable Discharge Disposition: Rehab Inpatient Discharge Time: > 30 minutes Discharge Instructions DIET: Follow Instructions for: Heart Healthy Diet, Diabetic Diet Activities you can perform: Regular-No Restrictions Follow up Referrals: SNF/[facility]/ - Daily New Medications: Amlodipine (Norvasc) 10 Mg Tab 10 MG PO DAILY hypertension #30 Ref 0 TAB Aspirin (Aspirin) 325 Mg Tab 325 MG PO DAILY CVA #30 Ref 0 TAB Atorvastatin (Atorvastatin) 40 Mg Tab 40 MG PO HS hyperlipidemia #30 Ref 0 TAB Hydralazine HCl (Hydralazine HCl) 50 Mg Tablet 50 MG PO Q8H hypertension #90 Ref 0 TAB Hydrocodone-Acetaminophen (Hydrocodone-Acetaminophen) 5-325 mg Tab 1 TAB PO Q4H PRN pain 6-10 #20 Ref 0 TAB Insulin Detemir Inj (Levemir Inj) 1,000 unit/ 10 ML Vial 25 UNITS SQ Q12HR diabetes #1 Ref 0 INJECTION Sennosides-Docusate Sodium (Senna Plus 8.6-50 mg) 1 Tab Tab 1 TAB PO BID constipation #60 Ref 0 TAB Continued Medications: Insulin Aspart Inj (Novolog Inj) 100 Unit/Ml Inj 1 UNITS SQ ACHS SLIDING SCALE Low dose sliding scale if blood sugar <70 no insulin if BS 150-199 give 1 unit if BS 200-249 give 3 units if BS 250-299 give 5 units if BS 300-349 give 7 units if BS >349 give 9 units Days 30 INJECTION Pantoprazole (Pantoprazole) 40 Mg Tab 40 MG PO DAILY gasteritis #30 TAB Sucralfate Liq (Sucralfate Liq) 1 Gm/10 Ml Nancy 1 GM PO ACHS gasteritis #30 TAB Discontinued Medications: Amlodipine (Norvasc) 5 Mg Tab 5 MG PO DAILY htn #30 TAB Insulin Detemir Inj (Levemir Inj) 1,000 unit/ 10 ML Vial 40 UNITS SQ DAILY Do not mix with any other Insulin. Blood Sugar Management Ref 0 VIAL Lisinopril (Lisinopril) 5 Mg Tab 10 MG PO DAILY htn #30 TAB Metoprolol Tartrate (Lopressor) 50 Mg Tab 50 MG PO Q12HR Days 30 TAB Yusra Perdue MD Dec 05, 2016 15:19
[2016-12-05 15:51] VITALS: BP 152/95; PULSE 103; RESP 20; TEMP 98.3; O2SAT 99
== END 2016-12-05 18:06 | DRG 65 ==
LOC: NEPE 23:01 → NEDA 12-02 00:48 → N05B 12-02 03:15
PROVIDERS: ADMIT Family Medicine; ATTEND Family Medicine
DX: I63.9 Cerebral infarction, unspecified (principal); N17.9 Acute kidney failure, unspecified; E11.21 Type 2 diabetes mellitus with diabetic nephropathy; E11.65 Type 2 diabetes mellitus with hyperglycemia; R13.10 Dysphagia, unspecified; Z68.41 Body mass index [BMI] 40.0-44.9, adult; E66.01 Morbid (severe) obesity due to excess calories; I12.9 Hypertensive chronic kidney disease with stage 1 through stage 4 chronic kidney disease, or unspecified chronic kidney disease; N18.9 Chronic kidney disease, unspecified; E11.22 Type 2 diabetes mellitus with diabetic chronic kidney disease; E78.5 Hyperlipidemia, unspecified; G89.29 Other chronic pain; Z79.4 Long term (current) use of insulin; Z79.82 Long term (current) use of aspirin; Z86.73 Personal history of transient ischemic attack (TIA), and cerebral infarction without residual deficits
CPT/HCPCS: 70450; 70544; 70551; 71010; 80048; 80053; 80061; 81001; 82010; 82550; 82552; 82805; 82948; 83036; 83930; 83935; 84484; 85025; 85610; 85730; 93005; 93306; 93880; 96372; 96374; J1815; J7030; J7040

== ENCOUNTER 2017-04-20 10:09 | Emergency (ER) | payer MEDICARE, MEDICAID ==
[~2017-04-20] VITALS: Ht 162.6 cm; Wt 100.0 kg
[~2017-04-20 10:09] MED LIST changes: +AMLO10 PO; -AMLO5 PO; +ASPI-183 PO; +ATOR40TA16 PO; +HYDR-3800 PO; +HYDR12.57 PO; -LISI-519 PO; -METO-309 PO; +NOVOLOGP2 SQ; -NOVOLOGSS SQ; +SENN1TAB PO
[2017-04-20 10:29] VITALS: BP 215/89; PULSE 98; RESP 17; TEMP 97.6; O2SAT 100
--- NOTE | 2017-04-20 10:34 | PD ---
HPI Chief Complaint: Edema Time Seen by Provider: 10:15 Travel History International Travel<30 days: No Contact w/Intl Traveler<30days: No Traveled to known affect area: No History of Present Illness HPI The patient is a 71-year-old Mia female who presents emergency department for bilateral lower extremity edema. The patient complains of swelling to the lower extremities, ankles, and feet bilaterally. 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 The patient states she lives alone at home, uses a walker and cane to get around the house without difficulty. The patient does state she does her ADLs on her own touches cooking and cleaning. The patient does know she's had some lower extremity edema intermittently for the last month, saw her primary physician who prescribed her hydrochlorothiazide. However, she continues to have mild pain and edema. She was also advised to wear compression stockings, she states she did ordered a compression stockings but they have not yet arrived. She does note the swelling is intermittent, slightly improved after lying in bed or keep them elevated, however, the swelling will return. She denies any known history of pulmonary embolus or DVT. She does have a recent history of CVA or her report. She is currently anticoagulated with aspirin. PFSH Past Medical History Arthritis: No Asthma: Yes Autoimmune Disease: No Blood Disorders: No Anxiety: No Depression: No Heart Rhythm Problems: No Cancer: No Cardiovascular Problems: Yes High Cholesterol: Yes Chemotherapy: No Chest Pain: No Congestive Heart Failure: No COPD: No Cerebrovascular Accident: Yes Diabetes: No Diminished Hearing: No Endocrine: Yes (DIABETES) Gastrointestinal Disorders: Yes GERD: Yes Genitourinary: No Headaches: No Hepatitis: No Hiatal Hernia: No Hypertension: Yes Immune Disorder: No Kidney Stones: No Musculoskeletal: No Neurologic: Yes (stroke) Psychiatric: No Reproductive: No Respiratory: Yes Migraines: No Myocardial Infarction: No Radiation Therapy: No Renal Failure: No Seizures: No Sickle Cell Disease: No Sleep Apnea: No Thyroid Disease: No Ulcer: No Past Surgical History Abdominal Surgery: No AICD: No Appendectomy: No Arteriovenous Shunt: No Cardiac Surgery: No Cholecystectomy: No Ear Surgery: No Endocrine Surgery: No Eye Surgery: No Genitourinary Surgery: No Gynecologic Surgery: No Insulin Pump: No Joint Replacement: No Oral Surgery: No Pacemaker: No Thoracic Surgery: No Other Surgery: Yes (SCALP) Social History Alcohol Use: No Tobacco Use: No Substance Use: No Allergies-Medications (Allergen,Severity, Reaction): Coded Allergies: No Known Allergies (Verified , 12/02/16) Reported Meds & Prescriptions Reported Meds & Active Scripts Active Hydrochlorothiazide 12.5 Mg Cap 12.5 Mg PO DAILY Novolog Inj (Insulin Aspart) 1,000 Unit/10 Ml Vial 8 Units SQ TIDAC 30 Days Levemir Inj (Insulin Detemir) 1,000 unit/ 10 ML Vial 26 Units SQ Q12HR 30 Days Hydralazine HCl 50 Mg Tablet 75 Mg PO Q8HR 30 Days Senna Plus 8.6-50 mg (Sennosides-Docusate Sodium) 1 Tab Tab 1 Tab PO BID Atorvastatin (Atorvastatin Calcium) 40 Mg Tab 40 Mg PO HS Aspirin 325 Mg Tab 325 Mg PO DAILY Norvasc (Amlodipine Besylate) 10 Mg Tab 10 Mg PO DAILY Sucralfate Liq (Sucralfate) 1 Gm/10 Ml Nancy 1 Gm PO ACHS Pantoprazole (Pantoprazole Sodium) 40 Mg Tab 40 Mg PO DAILY Review of Systems Except as stated in HPI: all other systems reviewed are Neg Cardiovascular: No: Chest Pain or Discomfort Respiratory: No: Shortness of Breath Gastrointestinal: No: Nausea, Vomiting, Abdominal Pain Musculoskeletal: Positive: Edema, Pain Physical Exam Narrative GENERAL: Awake, alert, nontoxic-appearing 71-year-old female who appears her stated age and is in no acute respiratory distress. SKIN: Focused skin assessment warm/dry. HEAD: Atraumatic. Normocephalic. EYES: Pupils equal and round. No scleral icterus. No injection or drainage. ENT: No nasal bleeding or discharge. Mucous membranes pink and moist. NECK: Trachea midline. No JVD. CARDIOVASCULAR: Regular rate and rhythm. No murmur appreciated. RESPIRATORY: No accessory muscle use. Clear to auscultation. Breath sounds equal bilaterally. GASTROINTESTINAL: Abdomen soft, obese, no rebound tenderness. MUSCULOSKELETAL: No obvious deformities. No clubbing. No cyanosis. Bilateral lower extremity edema that is minimally pitting. Positive distal pulses. Limited range of motion with left upper extremity and left lower extremity. NEUROLOGICAL: Awake and alert. No obvious cranial nerve deficits. Slight deficits noted in the left upper and left lower extremity. I'll dysarthria noted. PSYCHIATRIC: Appropriate mood and affect; insight and judgment normal. Data Data Last Documented VS Vital Signs Date Time Temp Pulse Resp B/P (MAP) Pulse Ox O2 Delivery O2 Flow Rate FiO2 04/20/17 10:31 86 17 98 Room Air 04/20/17 10:29 97.6 215/89 (131) Orders Orders Complete Blood Count With Diff (04/20/17 10:22) Comprehensive Metabolic Panel (04/20/17 10:22) Us Leg Venous Doppler Bilat (04/20/17 ) Labs Laboratory Tests Test 04/20/17 10:40 04/20/17 11:15 White Blood Count 9.5 TH/MM3 Red Blood Count 3.96 MIL/MM3 Hemoglobin 10.7 GM/DL Hematocrit 32.4 % Mean Corpuscular Volume 81.8 FL Mean Corpuscular Hemoglobin 27.1 PG Mean Corpuscular Hemoglobin Concent 33.1 % Red Cell Distribution Width 15.5 % Platelet Count 281 TH/MM3 Mean Platelet Volume 8.5 FL Neutrophils (%) (Auto) 63.1 % Lymphocytes (%) (Auto) 24.1 % Monocytes (%) (Auto) 6.6 % Eosinophils (%) (Auto) 5.3 % Basophils (%) (Auto) 0.9 % Neutrophils # (Auto) 6.0 TH/MM3 Lymphocytes # (Auto) 2.3 TH/MM3 Monocytes # (Auto) 0.6 TH/MM3 Eosinophils # (Auto) 0.5 TH/MM3 Basophils # (Auto) 0.1 TH/MM3 CBC Comment DIFF FINAL Differential Comment Blood Urea Nitrogen 30 MG/DL Creatinine 1.80 MG/DL Random Glucose 182 MG/DL Total Protein 7.5 GM/DL Albumin 2.8 GM/DL Calcium Level 8.5 MG/DL Alkaline Phosphatase 109 U/L Aspartate Amino Transf (AST/SGOT) 32 U/L Alanine Aminotransferase (ALT/SGPT) 17 U/L Total Bilirubin 0.4 MG/DL Sodium Level 136 MEQ/L Potassium Level 5.1 MEQ/L Chloride Level 106 MEQ/L Carbon Dioxide Level 22.5 MEQ/L Anion Gap 8 MEQ/L Estimat Glomerular Filtration Rate 34 ML/MIN MDM Medical Decision Making Medical Screen Exam Complete: Yes Emergency Medical Condition: Yes Medical Record Reviewed: Yes Interpretation(s) Laboratory Tests Test 04/20/17 10:40 04/20/17 11:15 White Blood Count 9.5 TH/MM3 Red Blood Count 3.96 MIL/MM3 Hemoglobin 10.7 GM/DL Hematocrit 32.4 % Mean Corpuscular Volume 81.8 FL Mean Corpuscular Hemoglobin 27.1 PG Mean Corpuscular Hemoglobin Concent 33.1 % Red Cell Distribution Width 15.5 % Platelet Count 281 TH/MM3 Mean Platelet Volume 8.5 FL Neutrophils (%) (Auto) 63.1 % Lymphocytes (%) (Auto) 24.1 % Monocytes (%) (Auto) 6.6 % Eosinophils (%) (Auto) 5.3 % Basophils (%) (Auto) 0.9 % Neutrophils # (Auto) 6.0 TH/MM3 Lymphocytes # (Auto) 2.3 TH/MM3 Monocytes # (Auto) 0.6 TH/MM3 Eosinophils # (Auto) 0.5 TH/MM3 Basophils # (Auto) 0.1 TH/MM3 CBC Comment DIFF FINAL Differential Comment Blood Urea Nitrogen 30 MG/DL Creatinine 1.80 MG/DL Random Glucose 182 MG/DL Total Protein 7.5 GM/DL Albumin 2.8 GM/DL Calcium Level 8.5 MG/DL Alkaline Phosphatase 109 U/L Aspartate Amino Transf (AST/SGOT) 32 U/L Alanine Aminotransferase (ALT/SGPT) 17 U/L Total Bilirubin 0.4 MG/DL Sodium Level 136 MEQ/L Potassium Level 5.1 MEQ/L Chloride Level 106 MEQ/L Carbon Dioxide Level 22.5 MEQ/L Anion Gap 8 MEQ/L Estimat Glomerular Filtration Rate 34 ML/MIN Last Impressions Lower Extremity Ultrasound 04/20/17 0000 Signed Impressions: Service Date/Time: Thursday, April 20, 2017 10:44 - CONCLUSION: Decreased compressibility is identified in the femoral veins of both lower extremities however no echogenic thrombus or alteration in flow was noted. Sonolucent nonocclusive thrombus cannot be completely excluded. Inability to completely compress the veins may be due to patient's body habitus. Ricardo Prajapati MD Differential Diagnosis Differential diagnosis includes medication side effect secondary to amlodipine, dependent edema, chronic venous insufficiency, DVT, hyponatremia, hypoalbuminemia. Narrative Course IV was established, labs are drawn and sent, and the patient was placed on cardiac telemetry monitoring and continuous pulse oximetry monitoring. Ultrasound of the lower extremities was ordered. Sodium and albumin level were sent to lab. Patient's albumin is low at 2.8, sodium is normal. Creatinine was 1.8, I reviewed the EMR, she has a history of elevated creatinines, as high as 2.01 in the past. Ultrasound reveals no obvious DVT, there was slight inability to compress both femoral veins, thought to be secondary to body habitus. Most likely the patient's edema is related to medication such as amlodipine and dependent edema. The patient is stable for outpatient follow- up. She is advised elevate her legs and wear GRAHAM hose. Diagnosis Primary Impression: Lower extremity edema Patient Instructions: General Instructions Additional Instructions: Follow-up with her primary physician. Elevate legs. Wear compression stockings. Return if symptoms worsen or progress. Disposition: 01 DISCHARGE HOME Condition: Stable Dominguez Snyder MD Apr 20, 2017 10:34
[2017-04-20 10:56] LABS: BASOPHIL # 0.1 TH/MM3 (0-0.2); BASOPHIL % 0.9 % (0.0-2.0); EOSINOPHIL # 0.5 TH/MM3 (0-0.4); EOSINOPHIL % 5.3 % (0.0-4.0); HEMATOCRIT 32.4 % (35.0-46.0); HEMO FLAGS DIFF FINAL; LYMPH % 24.1 % (9.0-44.0); LYMPHOCYTE # 2.3 TH/MM3 (1.0-4.8); MEAN CELL VOLUME 81.8 FL (80.0-100.0); MEAN CORPUSCULAR HEMOGLOBIN 27.1 PG (27.0-34.0); MEAN CORPUSCULAR HGB CONC 33.1 % (32.0-36.0); MONO % 6.6 % (0.0-8.0); NEUT % 63.1 % (16.0-70.0); PLATELET COUNT 281 TH/MM3 (150-450); RED BLOOD COUNT 3.96 MIL/MM3 (4.00-5.30); RED CELL DISTRIBUTION WIDTH 15.5 % (11.6-17.2); WHITE BLOOD COUNT 9.5 TH/MM3 (4.0-11.0)
--- NOTE | 2017-04-20 11:40 | RADRPT ---
EXAM DATE/TIME: 04/20/2017 10:44 [facility] COMPARISON: No previous studies available for comparison. INDICATIONS : Bilateral leg edema and pain. MEDICAL HISTORY : Hypercholesterolemia. Hypertension. CVA. Asthma. Dyspnea. GERD. Diabetes. SURGICAL HISTORY : Scalp surgery. ENCOUNTER: Initial ACUITY: 1 week PAIN SCORE: 8/10 LOCATION: Bilateral leg. TECHNIQUE: Venous ultrasound of the left and right leg was performed from the inguinal ligament to the proximal calf. Real-time, color Doppler and spectral tracing, compression and augmentation techniques were us ed. FINDINGS: RIGHT LEG: Decreased compressibility of is identified in the proximal femoral vein however Doppler demonstrates normal blood flow. There is otherwise normal compressibility of the deep venous system from the ingui nal region to the proximal calf. No echogenic clot is seen in the lumen of the common femoral, femor al, popliteal, and posterior tibial veins. There is a normal response of the venous system to proxim al and distal augmentation and respiration. LEFT LEG: Decreased compressibility is identified in the mid to distal femoral vein. There is otherwise normal compressibility of the deep venous system from the inguinal region to the proximal calf. No echogeni c clot is seen in the lumen of the common femoral, femoral, popliteal, and posterior tibial veins. T here is a normal response of the venous system to proximal and distal augmentation and respiration. CONCLUSION: Decreased compressibility is identified in the femoral veins of both lower extremities however no ech ogenic thrombus or alteration in flow was noted. Sonolucent nonocclusive thrombus cannot be completel y excluded. Inability to completely compress the veins may be due to patient's body habitus. Ricardo Prajapati MD on April 20, 2017 at 11:30 Board Certified Radiologist. This report was verified electronically.
[2017-04-20 11:48] LABS: ALT (GPT) 17 U/L (10-53)
[2017-04-20 11:50] LABS: ALKALINE PHOSPHATASE 109 U/L (45-117); TOTAL BILIRUBIN ADULT 0.4 MG/DL (0.2-1.0)
[2017-04-20 11:52] LABS: ANION GAP 8 MEQ/L (5-15); AST (GOT) 32 U/L (15-37); BICARBONATE 22.5 MEQ/L (21.0-32.0); BLOOD UREA NITROGEN 30 MG/DL (7-18); CHLORIDE 106 MEQ/L (98-107); GLOMERULAR FILTRATION RATE 34 ML/MIN (>89); SODIUM (NA) 136 MEQ/L (136-145)
[2017-04-20 11:54] LABS: POTASSIUM 5.1 MEQ/L (3.5-5.1)
== END 2017-04-20 12:13 | disposition home or self-care (01) ==
LOC: NEPC 10:09
DX: R60.0 Localized edema (principal); E11.9 Type 2 diabetes mellitus without complications; Z79.4 Long term (current) use of insulin
CPT/HCPCS: 80053; 85025; 93970

== ENCOUNTER 2017-05-20 19:24 | Emergency (ER) | payer MEDICARE, MEDICAID ==
[~2017-05-20] VITALS: Ht 170.2 cm; Wt 102.0 kg
[2017-05-20 19:38] VITALS: BP 174/92; PULSE 98; RESP 20
--- NOTE | 2017-05-20 19:59 | PD ---
HPI Chief Complaint: Fall Time Seen by Provider: 19:32 Travel History International Travel<30 days: No Contact w/Intl Traveler<30days: No Traveled to known affect area: No History of Present Illness HPI The patient is a 71 year old female who presents to the [facility] emergency department with a history of reportedly losing her balance and falling on her carpeted floor at home prior to arrival. The patient reports that she landed on her left side. The patient has a history of prior stroke. The patient reports having a history of residual speech deficit and left upper and left lower extremity weakness related to her prior strokes. She reports that she is on aspirin daily. She denies being on any other anticoagulation. She denies hitting her head or losing consciousness. She reports having left lateral hip pain. The patient reports that she was on the floor for approximately 30 minutes until her son found her. She reports that she normally gets around with the use of a cane or a walker. She is able to perform her activities of daily living on her own. On review of systems otherwise, the patient denies having any recent fevers, cough, congestion, neck pain, chest pain, shortness of breath, abdominal pain, vomiting, diarrhea, urinary symptoms, or new neurologic symptoms. The patient arrives by ambulance services. The patient's blood sugar was noted be 195 prior to arrival. [facility], [facility] Past Medical History Narrative Medical The patient's past medical history is significant for hypertension, hyperlipidemia, diabetes mellitus, history of cerebrovascular accident. Arthritis: No Asthma: Yes Autoimmune Disease: No Blood Disorders: No Anxiety: No Depression: No Heart Rhythm Problems: No Cancer: No Cardiovascular Problems: Yes High Cholesterol: Yes Chemotherapy: No Chest Pain: No Congestive Heart Failure: No COPD: No Cerebrovascular Accident: Yes Diabetes: No Diminished Hearing: No Endocrine: Yes (DIABETES) Gastrointestinal Disorders: Yes GERD: Yes Genitourinary: No Headaches: No Hepatitis: No Hiatal Hernia: No Hypertension: Yes Immune Disorder: No Implanted Vascular Access Dvce: No Kidney Stones: No Musculoskeletal: No Neurologic: Yes (stroke) Psychiatric: No Reproductive: No Respiratory: Yes Migraines: No Myocardial Infarction: No Radiation Therapy: No Renal Failure: No Seizures: No Sickle Cell Disease: No Sleep Apnea: No Thyroid Disease: No Ulcer: No Tetanus Vaccination: > 5 Years Influenza Vaccination: No ?: Not Past Surgical History Narrative Surgical The patient's past surgical history is unremarkable. Abdominal Surgery: No AICD: No Appendectomy: No Arteriovenous Shunt: No Cardiac Surgery: No Cholecystectomy: No Ear Surgery: No Endocrine Surgery: No Eye Surgery: No Genitourinary Surgery: No Gynecologic Surgery: No Insulin Pump: No Joint Replacement: No Oral Surgery: No Pacemaker: No Thoracic Surgery: No Other Surgery: Yes (SCALP) Social History Alcohol Use: No Tobacco Use: No Substance Use: No Allergies-Medications (Allergen,Severity, Reaction): Coded Allergies: No Known Allergies (Verified , 12/02/16) Reported Meds & Prescriptions Reported Meds & Active Scripts Active Hydrochlorothiazide 12.5 Mg Cap 12.5 Mg PO DAILY Novolog Inj (Insulin Aspart) 1,000 Unit/10 Ml Vial 8 Units SQ TIDAC 30 Days Levemir Inj (Insulin Detemir) 1,000 unit/ 10 ML Vial 26 Units SQ Q12HR 30 Days Hydralazine HCl 50 Mg Tablet 75 Mg PO Q8HR 30 Days Senna Plus 8.6-50 mg (Sennosides-Docusate Sodium) 1 Tab Tab 1 Tab PO BID Atorvastatin (Atorvastatin Calcium) 40 Mg Tab 40 Mg PO HS Aspirin 325 Mg Tab 325 Mg PO DAILY Norvasc (Amlodipine Besylate) 10 Mg Tab 10 Mg PO DAILY Sucralfate Liq (Sucralfate) 1 Gm/10 Ml Nancy 1 Gm PO ACHS Pantoprazole (Pantoprazole Sodium) 40 Mg Tab 40 Mg PO DAILY Review of Systems Except as stated in HPI: all other systems reviewed are Neg General / Constitutional: No: Fever Eyes: No: Visual changes HENT: No: Headaches Cardiovascular: No: Chest Pain or Discomfort Respiratory: No: Shortness of Breath Gastrointestinal: No: Abdominal Pain Genitourinary: No: Dysuria Musculoskeletal: Positive: Arthralgias, Limited ROM, Pain Skin: No Rash Neurologic: Positive: Weakness (related to prior stroke), Focal Abnormalities ( related to prior stroke), Slurred Speech (related to prior stroke), No: Change in Mentation, Paresthesia, Sensory Disturbance Psychiatric: No: Depression Endocrine: No: Polydipsia Hematologic/Lymphatic: No: Easy Bruising Physical Exam Narrative General: The patient is a well-developed well-nourished female in no acute distress. Head and Neck exam: Head is normocephalic atraumatic. Eyes: EOMI, pupils are equal round and reactive to light. Nose: Midline septum with pink mucous membranes Mouth: Dentition unremarkable. Moist mucus membranes. Posterior oropharynx is not erythematous. No tonsillar hypertrophy. Uvula midline. Airway patent. Neck: No palpable lymphadenopathy. No nuchal rigidity. No thyromegaly. No spinous process tenderness to palpation. No step-off or crepitus. No erythema or ecchymosis. Cardiovascular: Regular rate and rhythm without murmurs, gallops, or rubs. Lungs: Clear to auscultation bilaterally. No wheezes, rhonchi, or rales. Abdomen: Soft, without tenderness to palpation in all 4 quadrants of the abdomen. No guarding, rebound, or rigidity. Normal bowel sounds are audible. No tenderness on palpation of McBurney's point. Extremities: No clubbing or cyanosis. The patient has trace pedal edema bilateral lower extremities. 2+ pulses in all 4 extremities. No calf tenderness on palpation. Negative Homans sign. No palpable cords. The patient on examination of her extremities has full range of motion without any crepitus, deformity, or pain. Except an area of interest, the left lower extremity. The patient has lateral tenderness on palpation overlying the lateral hip. There is no erythema or ecchymosis developing. There is no deformity. There is no shortening, internal or external rotation of her extremity. Back: No costovertebral angle tenderness to palpation. Neurologic Exam: The patient has no significant facial asymmetry, cranial nerves II through XII are intact other than she has mildly slurred speech. Mild persistent dysarthria from prior stroke. The patient has mild residual weakness of the left upper and left lower extremity related to her prior stroke. She has strength that is 5 over 5 in the right upper and right lower extremity. Skin Exam: No rash noted. Intact skin that is warm and dry. Data Data Last Documented VS Vital Signs Date Time Temp Pulse Resp B/P (MAP) Pulse Ox O2 Delivery O2 Flow Rate FiO2 05/20/17 19:38 98 20 174/92 (119) Orders Orders Electrocardiogram (05/20/17 19:44) Complete Blood Count With Diff (05/20/17 19:44) Basic Metabolic Panel (Bmp) (05/20/17 19:44) Prothrombin Time / Inr (Pt) (05/20/17 19:44) Act Partial Throm Time (Ptt) (05/20/17 19:44) Chest, Single Ap (05/20/17 19:44) Ct Brain W/O Iv Contrast(Rout) (05/20/17 19:44) Iv Access Insert/Monitor (05/20/17 19:44) Ecg Monitoring (05/20/17 19:44) Oximetry (05/20/17 19:44) Ct Cerv Spine W/O Contrast (05/20/17 19:44) Hip, Uni(Ap&Lat) W Ap Pelvis (05/20/17 19:44) Ice/Cold Pack (05/20/17 19:44) Ed Discharge Order (05/20/17 21:30) Acetaminophen (Tylenol) (05/20/17 21:30) Labs Laboratory Tests Test 05/20/17 20:01 White Blood Count 9.2 TH/MM3 Red Blood Count 4.25 MIL/MM3 Hemoglobin 11.1 GM/DL Hematocrit 34.5 % Mean Corpuscular Volume 81.3 FL Mean Corpuscular Hemoglobin 26.1 PG Mean Corpuscular Hemoglobin Concent 32.1 % Red Cell Distribution Width 15.6 % Platelet Count 343 TH/MM3 Mean Platelet Volume 8.5 FL Neutrophils (%) (Auto) 73.6 % Lymphocytes (%) (Auto) 14.7 % Monocytes (%) (Auto) 7.1 % Eosinophils (%) (Auto) 4.0 % Basophils (%) (Auto) 0.6 % Neutrophils # (Auto) 6.8 TH/MM3 Lymphocytes # (Auto) 1.4 TH/MM3 Monocytes # (Auto) 0.6 TH/MM3 Eosinophils # (Auto) 0.4 TH/MM3 Basophils # (Auto) 0.1 TH/MM3 CBC Comment DIFF FINAL Differential Comment Prothrombin Time 10.1 SEC Prothromb Time International Ratio 1.0 RATIO Activated Partial Thromboplast Time 27.4 SEC Blood Urea Nitrogen 18 MG/DL Creatinine 1.39 MG/DL Random Glucose 218 MG/DL Calcium Level 8.6 MG/DL Sodium Level 137 MEQ/L Potassium Level 4.1 MEQ/L Chloride Level 104 MEQ/L Carbon Dioxide Level 27.5 MEQ/L Anion Gap 6 MEQ/L Estimat Glomerular Filtration Rate 45 ML/MIN MDM Medical Decision Making Medical Screen Exam Complete: Yes Emergency Medical Condition: Yes Medical Record Reviewed: Yes Interpretation(s) Last Impressions Hip and Pelvis X-Ray 05/20/171943 Signed Impressions: Service Date/Time: Saturday, May 20, 2017 20:21 - CONCLUSION: Mild to moderate osteoarthritis of the hips. No acute bony abnormality. Emmanuel Valiente MD Head CT 05/20/171943 Signed Impressions: Service Date/Time: Saturday, May 20, 2017 20:11 - CONCLUSION: 1. No acute intracranial abnormalities. Emmanuel Valiente MD Chest X-Ray 05/20/171943 Signed Impressions: Service Date/Time: Saturday, May 20, 2017 20:21 - CONCLUSION: No acute disease. Emmanuel Valiente MD Cervical Spine CT 05/20/171943 Signed Impressions: Service Date/Time: Saturday, May 20, 2017 20:11 - CONCLUSION: 1. Moderate degenerative disc disease and facet arthropathy. No acute bony abnormality. Emmanuel Valiente MD Differential Diagnosis Intracranial trauma, versus cervical spine injury, versus intrathoracic trauma, versus pelvis injury, versus left hip fracture, versus left hip dislocation, versus contusion. Narrative Course During the course of the patients emergency department visit, the patients history, examination, and differential diagnosis were reviewed with the patient. The patient was placed on a clinical research monitor with oximetry and frequent blood pressure monitoring. The patient had IV access obtained and blood work sent for analysis. The patient will have a CT scan of the head and neck done, chest x-ray, left hip x-ray and pelvis x-ray ordered. The patient was initially provided Tylenol for pain. The patients laboratory studies were reviewed and remarkable for a white count of 9.2, hemoglobin 11.1, platelets 343 with 73.6 neutrophils, basic metabolic profile is remarkable for creatinine 1.39, glucose 218, PT 10.1, PTT 27.4. Radiology studies were reviewed and remarkable for a CT scan of the brain that shows no acute abnormality. CT scan of the C-spine shows degenerative changes, no other acute abnormality. Chest x-ray shows no acute cardiopulmonary disease. Left hip x-ray shows no evidence of fracture, mild to moderate osteoarthritis of bilateral hips is noted on the pelvis film. The patient is resting comfortably and feels better, is alert and in no distress. The patients results and examination findings were discussed with the patient. The repeat examination is unremarkable and benign. The history, exam, diagnostic testing, and current condition do not suggest any significant pathology to warrant further testing, continued ED treatment, admission, or surgical evaluation at this point. The vital signs have been stable. The patient does not have uncontrollable pain, intractable vomiting, or other significant symptoms. The patient's condition is stable and appropriate for discharge. The patient will pursue further outpatient evaluation with a primary care physician or other designated or consulting physician as indicated in the discharge instructions. The patient expressed understanding and was agreeable with this plan. Diagnosis Primary Impression: Fall Qualified Codes: W19.XXXA - Unspecified fall, initial encounter Additional Impression: Contusion Qualified Codes: S70.12XA - Contusion of left thigh, initial encounter Referrals: Primary Care Physician Patient Instructions: Contusion in Adults (ED), Fall Prevention for Older Adults (ED), General Instructions Med/Other Pt SpecificInfo: No Change to Meds Disposition: 01 DISCHARGE HOME Condition: Stable Nancy Astorga MD May 20, 2017 19:59
[2017-05-20 20:20] LABS: AUTOMATED NEUTROPHIL # 6.8 TH/MM3 (1.8-7.7); BASOPHIL # 0.1 TH/MM3 (0-0.2); BASOPHIL % 0.6 % (0.0-2.0); EOSINOPHIL # 0.4 TH/MM3 (0-0.4); HEMATOCRIT 34.5 % (35.0-46.0); HEMOGLOBIN 11.1 GM/DL (11.6-15.3); LYMPH % 14.7 % (9.0-44.0); LYMPHOCYTE # 1.4 TH/MM3 (1.0-4.8); MEAN CELL VOLUME 81.3 FL (80.0-100.0); MEAN CORPUSCULAR HEMOGLOBIN 26.1 PG (27.0-34.0); MEAN CORPUSCULAR HGB CONC 32.1 % (32.0-36.0); MEAN PLATELET VOLUME 8.5 FL (7.0-11.0); MONO % 7.1 % (0.0-8.0); MONOCYTE # 0.6 TH/MM3 (0-0.9); NEUT % 73.6 % (16.0-70.0); PLATELET COUNT 343 TH/MM3 (150-450); RED BLOOD COUNT 4.25 MIL/MM3 (4.00-5.30); RED CELL DISTRIBUTION WIDTH 15.6 % (11.6-17.2); WHITE BLOOD COUNT 9.2 TH/MM3 (4.0-11.0)
[2017-05-20 20:44] LABS: BICARBONATE 27.5 MEQ/L (21.0-32.0); CALCIUM 8.6 MG/DL (8.5-10.1); CREATININE 1.39 MG/DL (0.50-1.00)
[2017-05-20 20:47] LABS: PROTHROMBIN TIME - PATIENT 10.1 SEC (9.8-11.6)
--- NOTE | 2017-05-20 20:57 | RADRPT ---
EXAM DATE/TIME: 05/20/2017 20:11 [facility] COMPARISON: No previous studies available for comparison. INDICATIONS : Fall, cephalgia. RADIATION DOSE: 53.51 CTDIvol (mGy) MEDICAL HISTORY : Stroke. Cardiovascular disease Hypertension. SURGICAL HISTORY : None. ENCOUNTER: Initial ACUITY: 1 day PAIN SCALE: 3/10 LOCATION: Bilateral cranial TECHNIQUE: Multiple contiguous axial images were obtained of the head. Using automated exposure control and adj ustment of the mA and/or kV according to patient size, radiation dose was kept as low as reasonably a chievable to obtain optimal diagnostic quality images. DICOM format image data is available electro nically for review and comparison. FINDINGS: CEREBRUM: The ventricles are normal for age. No evidence of midline shift, mass lesion, hemorrhage or acute in farction. No extra-axial fluid collections are seen. POSTERIOR FOSSA: The cerebellum and brainstem are intact. The 4th ventricle is midline. The cerebellopontine angle i s unremarkable. EXTRACRANIAL: The visualized portion of the orbits is intact. SKULL: The calvaria is intact. No evidence of skull fracture. CONCLUSION: 1. No acute intracranial abnormalities. Emmanuel Valiente MD on May 20, 2017 at 20:55 Board Certified Radiologist. This report was verified electronically.
--- NOTE | 2017-05-20 20:58 | RADRPT ---
EXAM DATE/TIME: 05/20/2017 20:11 [facility] COMPARISON: No previous studies available for comparison. INDICATIONS : Fall, neck pain. RADIATION DOSE: 41.10 CTDIvol (mGy) ; Patient body habitus MEDICAL HISTORY : Stroke. Cardiovascular disease Hypertension. SURGICAL HISTORY : None. ENCOUNTER: Initial ACUITY: 1 day PAIN SCALE: 4/10 LOCATION: Bilateral neck TECHNIQUE: Volumetric scanning of the cervical spine was performed. Multiplanar reconstructions in the sagittal, coronal and oblique axial planes were performed. Using automated exposure control and adjustment o f the mA and/or kV according to patient size, radiation dose was kept as low as reasonably achievable to obtain optimal diagnostic quality images. DICOM format image data is available electronically f or review and comparison. FINDINGS: VERTEBRAE: Normal vertebral body height. ALIGNMENT: No evidence of subluxation. C2-C3: The bony spinal canal is normal in size. No evidence of disc bulge or herniation. The neural forami na are bilaterally patent. C3-C4: The bony spinal canal is normal in size. No evidence of disc bulge or herniation. The neural forami na are bilaterally patent. C4-C5: The bony spinal canal is normal in size. No evidence of disc bulge or herniation. The neural forami na are bilaterally patent. C5-C6: The bony spinal canal is normal in size. No evidence of disc bulge or herniation. The neural forami na are bilaterally patent. C6-C7: The bony spinal canal is normal in size. No evidence of disc bulge or herniation. The neural forami na are bilaterally patent. C7-T1: The bony spinal canal is normal in size. No evidence of disc bulge or herniation. The neural forami na are bilaterally patent. CONCLUSION: 1. Moderate degenerative disc disease and facet arthropathy. No acute bony abnormality. Emmanuel Valiente MD on May 20, 2017 at 20:55 Board Certified Radiologist. This report was verified electronically.
--- NOTE | 2017-05-20 21:18 | RADRPT ---
EXAM DATE/TIME: 05/20/2017 20:21 [facility] COMPARISON: No previous studies available for comparison. INDICATIONS : Chest pain after fall. MEDICAL HISTORY : Carotid stenosis. Hypertension Diabetes mellitus type II. SURGICAL HISTORY : None. ENCOUNTER: Initial ACUITY: 1 day PAIN SCORE: Non-responsive. LOCATION: Bilateral chest FINDINGS: A single view of the chest demonstrates the lungs to be symmetrically aerated without evidence of mas s, infiltrate or effusion. The cardiomediastinal contours are unremarkable. Osseous structures are intact. CONCLUSION: No acute disease. Emmanuel Valiente MD on May 20, 2017 at 21:16 Board Certified Radiologist. This report was verified electronically.
--- NOTE | 2017-05-20 21:21 | RADRPT ---
EXAM DATE/TIME: 05/20/2017 20:21 [facility] COMPARISON: No previous studies available for comparison. INDICATIONS : Left hip pain after fall. MEDICAL HISTORY : None. SURGICAL HISTORY : None. ENCOUNTER: Initial ACUITY: 1 day PAIN SCORE: 10/10 LOCATION: Left hip. FINDINGS: Examination of the left hip was performed with AP Pelvis. The primary and secondary trabecular patte rn of the femoral neck is intact. The hip joint is of normal width without significant sclerosis or bony hypertrophy. The acetabulum is grossly intact. CONCLUSION: Mild to moderate osteoarthritis of the hips. No acute bony abnormality. Emmanuel Valiente MD on May 20, 2017 at 21:17 Board Certified Radiologist. This report was verified electronically.
[2017-05-20] MEDS ORDERED: ACETAMINOPHEN 325 MG TAB PO ONE (21:30)
[2017-05-20] MEDS ORDERED: CODE30TA2 PO (23:59)
--- NOTE | 2017-05-21 15:36 | EKG ---
Date Performed: 05/20/2017 Time Performed: 20:35:53 PTAGE: 71 years EKG: Sinus rhythm MARKED LEFT AXIS DEVIATION ABNORMAL ECG PREVIOUS TRACING : 12/01/2016 23.21 DOCTOR: Td Fabian Interpretating Date/Time 05/21/2017 15:35:39
== END 2017-05-20 23:34 | disposition home or self-care (01) ==
LOC: NEPC 19:24
DX: S70.12XA Contusion of left thigh, initial encounter (principal); R94.31 Abnormal electrocardiogram [ECG] [EKG]; I69.954 Hemiplegia and hemiparesis following unspecified cerebrovascular disease affecting left non-dominant side; I10 Essential (primary) hypertension; E78.5 Hyperlipidemia, unspecified; E11.9 Type 2 diabetes mellitus without complications; J45.909 Unspecified asthma, uncomplicated; E78.00 Pure hypercholesterolemia, unspecified; W18.30XA Fall on same level, unspecified, initial encounter
CPT/HCPCS: 70450; 71010; 72125; 73502; 80048; 85025; 85610; 85730; 93005

== ENCOUNTER 2017-05-20 22:29 | Emergency (ER) | payer MEDICARE, MEDICAID ==
[~2017-05-20] VITALS: Ht 162.6 cm; Wt 105.0 kg
[2017-05-20 22:31] VITALS: BP 245/111; PULSE 113; RESP 18; TEMP 98.3; O2SAT 98
[2017-05-20] MEDS ORDERED: MORPHINE SULFATE 2 MG/ML INJ IM ONE (23:15)
--- NOTE | 2017-05-20 23:24 | PD ---
HPI Chief Complaint: Injury Time Seen by Provider: 23:12 Travel History International Travel<30 days: No Contact w/Intl Traveler<30days: No Traveled to known affect area: No History of Present Illness HPI PATIENT DISCHARGED FROM [facility] MINUTES AGO....PATIENT ARRIVES WITH FAMILY MEMBER C/O LEFT ANKLE PAIN, THAT WAS NOT PRESENT WHEN SHE ORIGINALLY PRESENTED TO ER. PAIN IS SO SEVERE THAT SHE IS UNABLE TO AMBULATE WELL. FAMILY MEMBER WAS REQUESTING ADMISSION OR PLACEMENT IN REHAB. PFSH Past Medical History Arthritis: No Asthma: Yes Autoimmune Disease: No Blood Disorders: No Anxiety: No Depression: No Heart Rhythm Problems: No Cancer: No Cardiovascular Problems: Yes High Cholesterol: Yes Chemotherapy: No Chest Pain: No Congestive Heart Failure: No COPD: No Cerebrovascular Accident: Yes (X 3 ) Diabetes: Yes Patient Takes Glucophage: No Diminished Hearing: No Endocrine: Yes Gastrointestinal Disorders: Yes GERD: Yes Genitourinary: No Headaches: No Hepatitis: No Hiatal Hernia: No Hypertension: Yes Immune Disorder: No Implanted Vascular Access Dvce: No Kidney Stones: No Musculoskeletal: No Neurologic: Yes (stroke) Psychiatric: No Reproductive: No Respiratory: Yes Migraines: No Myocardial Infarction: No Radiation Therapy: No Renal Failure: No Seizures: No Sickle Cell Disease: No Sleep Apnea: No Thyroid Disease: No Ulcer: No Past Surgical History Abdominal Surgery: No AICD: No Appendectomy: No Arteriovenous Shunt: No Cardiac Surgery: No Cholecystectomy: No Ear Surgery: No Endocrine Surgery: No Eye Surgery: No Genitourinary Surgery: No Gynecologic Surgery: No Insulin Pump: No Joint Replacement: No Neurologic Surgery: No Oral Surgery: No Pacemaker: No Thoracic Surgery: No Other Surgery: Yes (SCALP) Social History Alcohol Use: No Tobacco Use: No Substance Use: No Allergies-Medications (Allergen,Severity, Reaction): Coded Allergies: No Known Allergies (Verified , 12/02/16) Reported Meds & Prescriptions Reported Meds & Active Scripts Active Codeine-Acetaminophen 30-300 mg Tab 1 Tab PO Q4H PRN Hydrochlorothiazide 12.5 Mg Cap 12.5 Mg PO DAILY Novolog Inj (Insulin Aspart) 1,000 Unit/10 Ml Vial 8 Units SQ TIDAC 30 Days Levemir Inj (Insulin Detemir) 1,000 unit/ 10 ML Vial 26 Units SQ Q12HR 30 Days Hydralazine HCl 50 Mg Tablet 75 Mg PO Q8HR 30 Days Senna Plus 8.6-50 mg (Sennosides-Docusate Sodium) 1 Tab Tab 1 Tab PO BID Atorvastatin (Atorvastatin Calcium) 40 Mg Tab 40 Mg PO HS Aspirin 325 Mg Tab 325 Mg PO DAILY Norvasc (Amlodipine Besylate) 10 Mg Tab 10 Mg PO DAILY Sucralfate Liq (Sucralfate) 1 Gm/10 Ml Nancy 1 Gm PO ACHS Pantoprazole (Pantoprazole Sodium) 40 Mg Tab 40 Mg PO DAILY Review of Systems Except as stated in HPI: all other systems reviewed are Neg Musculoskeletal: Positive: Pain (LEFT ANKLE) Physical Exam Narrative GENERAL: SKIN: Warm and dry. HEAD: Atraumatic. Normocephalic. EYES: Pupils equal and round. No scleral icterus. No injection or drainage. ENT: No nasal bleeding or discharge. Mucous membranes pink and moist. NECK: Trachea midline. No JVD. CARDIOVASCULAR: Regular rate and rhythm. RESPIRATORY: No accessory muscle use. Clear to auscultation. Breath sounds equal bilaterally. GASTROINTESTINAL: Abdomen soft, non-tender, nondistended. MUSCULOSKELETAL: Extremities without clubbing, cyanosis, or edema. No obvious deformities. TENDER TO PALPATION OVER LEFT TIB/FIB/ANKLE REGION NEUROLOGICAL: Awake and alert. No obvious cranial nerve deficits. Motor grossly within normal limits. Five out of 5 muscle strength in the arms and legs. Normal speech. PSYCHIATRIC: Appropriate mood and affect; insight and judgment normal. Data Data Last Documented VS Vital Signs Date Time Temp Pulse Resp B/P (MAP) Pulse Ox O2 Delivery O2 Flow Rate FiO2 05/21/17 04:57 05/20/17 22:31 98.3 113 18 98 Room Air Orders Orders Morphine Inj (Morphine Inj) (05/20/17 23:15) Tibia/Fibula (Ap/Lat) (05/20/17 ) Ed Discharge Order (05/21/17 00:00) MDM Medical Decision Making Medical Screen Exam Complete: Yes Emergency Medical Condition: Yes Medical Record Reviewed: Yes Differential Diagnosis ANKLE FX V DISLOCATION V CONTUSION Narrative Course REVIEWED PREVIOUS PHYSICIANS WORKUP INCLUDING CT'S AND XRAYS WHICH WERE ALL NEGATIVE FOR FX/DISLOCATION. I ADVISED PATIENT'S FAMILY MEMBER AT BEDSIDE TO CONTACT PCP AND DISCUSS PLACEMENT Diagnosis Primary Impression: CONTUSIONS Patient Instructions: Contusion in Adults (ED), General Instructions Additional Instructions: CONTACT YOUR PRIMARY CARE WITH THE HELP OF YOUR FAMILY FOR ADDITIONAL HELP IN SECURING EITHER INPATIENT OR OUTPATIENT REHAB Scripts Codeine-Acetaminophen (Codeine-Acetaminophen) 30-300 mg Tab 1 TAB PO Q4H Y for PAIN, #15 TAB 0 Refills Prov: Matt Luke MD 05/20/17 Disposition: 01 DISCHARGE HOME Condition: Stable Matt Luke MD May 20, 2017 23:24
--- NOTE | 2017-05-20 23:47 | RADRPT ---
EXAM DATE/TIME: 05/20/2017 23:25 [facility] COMPARISON: No previous studies available for comparison. INDICATIONS : Pain in all of left lower leg after falling today. MEDICAL HISTORY : None. SURGICAL HISTORY : None. ENCOUNTER: Initial ACUITY: 1 day PAIN SCORE: 4/10 LOCATION: Left lower leg. FINDINGS: 2 view examination of the leg demonstrates mild osteopenia. There is moderate degenerative changes i n the knee with narrowing of the medial and lateral compartment with osteophytes. The shaft of the t ibia and fibula is intact. No fracture seen. No radiopaque foreign bodies. Moderate-sized plantar calcaneal spur. CONCLUSION: No evidence of recent bony injury. Dandre Tinoco MD on May 20, 2017 at 23:44 Board Certified Radiologist. This report was verified electronically.
[2017-05-20] MEDS ORDERED: CODE30TA2 PO (23:59)
== END 2017-05-21 04:58 | disposition home or self-care (01) ==
LOC: NEPD 22:29
DX: S90.02XA Contusion of left ankle, initial encounter (principal); J45.909 Unspecified asthma, uncomplicated; E78.00 Pure hypercholesterolemia, unspecified; E11.9 Type 2 diabetes mellitus without complications; K21.9 Gastro-esophageal reflux disease without esophagitis; I10 Essential (primary) hypertension; X58.XXXA Exposure to other specified factors, initial encounter; Z79.4 Long term (current) use of insulin; Z86.73 Personal history of transient ischemic attack (TIA), and cerebral infarction without residual deficits
CPT/HCPCS: 73590; 96374; 99284; J2270

== ENCOUNTER 2017-08-14 07:30 | Inpatient (IN) | payer MEDICARE, MEDICAID ==
[~2017-08-14] VITALS: Ht 162.6 cm; Wt 115.9 kg
[2017-08-14] VITALS (12 sets, daily range): BP systolic 122–217; BP diastolic 87–114; PULSE 90–128; RESP 18–20; TEMP 98.1–99.8; O2SAT 97–99
[~2017-08-14 07:30] MED LIST changes: +CODE30TA2 PO
[2017-08-14] MEDS ORDERED: IOHEXOL 350 MG/ML 10 ML VIAL (for RAD DIAG) IVCONTRAST ONE (07:31)
[2017-08-14] MEDS ORDERED: SODIUM CHLOR 0.9% 1000 ML INJ 1,000 ML IV ONE (07:48)
[2017-08-14] MEDS ORDERED: ACETAMINOPHEN 325 MG TAB PO ONE (08:00)
--- NOTE | 2017-08-14 08:08 | PD ---
HPI Chief Complaint: Fall Time Seen by Provider: 07:47 Travel History International Travel<30 days: No Contact w/Intl Traveler<30days: No Traveled to known affect area: No History of Present Illness HPI Patient is a 72 year old female who comes in complaining of shoulder pain and neck pain. She says she was trying to get up off of the couch when she fell. She says she was unable to get up because there was nothing to grab onto. She denies hitting her head or any LOC. She says she was on the ground for about 1 hr. She lives alone. She has not taken her medications this morning yet. She denies chest pain or SOB. She denies abdominal pain. She says she has knee pain, but this is chronic for her. Severity is mild to moderate. PFSH Past Medical History Arthritis: No Asthma: Yes Autoimmune Disease: No Blood Disorders: No Anxiety: No Depression: No Heart Rhythm Problems: No Cancer: No Cardiovascular Problems: Yes High Cholesterol: Yes Chemotherapy: No Chest Pain: No Congestive Heart Failure: No COPD: No Cerebrovascular Accident: Yes Diabetes: Yes Patient Takes Glucophage: No Diminished Hearing: No Endocrine: Yes Gastrointestinal Disorders: Yes GERD: Yes Genitourinary: No Headaches: No Hepatitis: No Hiatal Hernia: No Hypertension: Yes Immune Disorder: No Implanted Vascular Access Dvce: No Kidney Stones: No Musculoskeletal: No Neurologic: Yes (stroke) Psychiatric: No Reproductive: No Respiratory: Yes Migraines: No Myocardial Infarction: No Radiation Therapy: No Renal Failure: No Seizures: No Sickle Cell Disease: No Sleep Apnea: No Thyroid Disease: No Ulcer: No Tetanus Vaccination: < 5 Years Influenza Vaccination: No ?: Not Past Surgical History Abdominal Surgery: No AICD: No Appendectomy: No Arteriovenous Shunt: No Cardiac Surgery: No Cholecystectomy: No Ear Surgery: No Endocrine Surgery: No Eye Surgery: No Genitourinary Surgery: No Gynecologic Surgery: No Insulin Pump: No Joint Replacement: No Neurologic Surgery: No Oral Surgery: No Pacemaker: No Thoracic Surgery: No Other Surgery: Yes (SCALP) Social History Alcohol Use: No Tobacco Use: No Substance Use: No Allergies-Medications (Allergen,Severity, Reaction): Coded Allergies: No Known Allergies (Verified , 12/02/16) Reported Meds & Prescriptions Reported Meds & Active Scripts Active Codeine-Acetaminophen 30-300 mg Tab 1 Tab PO Q4H PRN Hydrochlorothiazide 12.5 Mg Cap 12.5 Mg PO DAILY Novolog Inj (Insulin Aspart) 1,000 Unit/10 Ml Vial 8 Units SQ TIDAC 30 Days Levemir Inj (Insulin Detemir) 1,000 unit/ 10 ML Vial 26 Units SQ Q12HR 30 Days Hydralazine HCl 50 Mg Tablet 75 Mg PO Q8HR 30 Days Senna Plus 8.6-50 mg (Sennosides-Docusate Sodium) 1 Tab Tab 1 Tab PO BID Atorvastatin (Atorvastatin Calcium) 40 Mg Tab 40 Mg PO HS Aspirin 325 Mg Tab 325 Mg PO DAILY Norvasc (Amlodipine Besylate) 10 Mg Tab 10 Mg PO DAILY Sucralfate Liq (Sucralfate) 1 Gm/10 Ml Nancy 1 Gm PO ACHS Pantoprazole (Pantoprazole Sodium) 40 Mg Tab 40 Mg PO DAILY Review of Systems Except as stated in HPI: all other systems reviewed are Neg General / Constitutional: No: Fever, Chills HENT: No: Headaches, Lightheadedness Cardiovascular: No: Chest Pain or Discomfort Respiratory: No: Shortness of Breath Gastrointestinal: No: Nausea, Vomiting Musculoskeletal: Positive: Pain Skin: No Rash, No Change in Pigmentation Neurologic: No: Weakness, Dizziness Physical Exam Narrative GENERAL: Awake and alert, in no acute distress. She is morbidly obese, unkept and smells of urine. SKIN: Focused skin assessment warm/dry. No wounds or signs of infection. HEAD: Atraumatic. Normocephalic. EYES: Pupils equal and round. No scleral icterus. EOMI. ENT: Mucous membranes pink and moist. NECK: Trachea midline. No JVD. CARDIOVASCULAR: Tachycardia. No murmur appreciated. RESPIRATORY: No accessory muscle use. Clear to auscultation. Breath sounds equal bilaterally. GASTROINTESTINAL: Abdomen soft, nondistended. Tender to palpation of the LLQ. No rebound or guarding. MUSCULOSKELETAL: No obvious deformities. No clubbing. No cyanosis. No edema. Tender to palpation of the left hip and lower cervical spine. NEUROLOGICAL: Awake and alert. No obvious cranial nerve deficits. Motor grossly within normal limits. Slurred speech from previous stroke. PSYCHIATRIC: Appropriate mood and affect; insight and judgment normal. Data Data Last Documented VS Vital Signs Date Time Temp Pulse Resp B/P (MAP) Pulse Ox O2 Delivery O2 Flow Rate FiO2 3/18 09:00 18 08/14/17 08:07 98 Room Air 08/14/17 07:46 130 08/14/17 07:46 99.8 Orders Orders Electrocardiogram (08/14/17 07:48) Complete Blood Count With Diff (08/14/17 07:48) Comprehensive Metabolic Panel (08/14/17 07:48) Lactic Acid Sepsis Protocol (08/14/17 07:48) Troponin I (08/14/17 07:48) Urinalysis - C+S If Indicated (08/14/17 07:48) Blood Culture (08/14/17 07:48) Chest, Single Ap (08/14/17 07:48) Blood Glucose (08/14/17 07:48) Ecg Monitoring (08/14/17 07:48) Iv Access Insert/Monitor (08/14/17 07:48) Oximetry (08/14/17 07:48) Acetaminophen (Tylenol) (08/14/17 08:00) Ct Abd/Pel W Iv Contrast(Rout) (08/14/17 07:48) Ct Brain W/O Iv Contrast(Rout) (08/14/17 07:48) Sodium Chlor 0.9% 1000 Ml Inj (Ns 1000 M (08/14/17 07:48) Ct Cerv Spine W/O Contrast (08/14/17 ) Pelvis, Ap Only (Routine) (08/14/17 ) Shoulder, Complete (>2vws) (08/14/17 ) Shoulder, Complete (>2vws) (08/14/17 ) Creatine Kinase (Cpk) (08/14/17 07:50) Aspirin Chew (Aspirin Chew) (08/14/17 09:30) Iohexol 350 Inj (Omnipaque 350 Inj) (08/14/17 07:31) Heparin Inj (Heparin Inj) (08/14/17 16:45) Heparin Inj (Heparin Inj) (08/14/17 16:45) Heparin-D5w 25,000 U/250 Ml (Heparin-D5w (08/14/17 10:45) Cbc No Diff, Includes Plts (08/17/17 06:00) Act Partial Throm Time (Ptt) (08/14/17 17:45) Occult Blood (Hemoccult) Stool (08/14/17 10:45) Admit Order (Ed Use Only) (08/14/17 ) Labs Laboratory Tests Test 08/14/17 07:50 08/14/17 07:52 08/14/17 07:55 White Blood Count 13.6 TH/MM3 Red Blood Count 4.52 MIL/MM3 Hemoglobin 11.6 GM/DL Hematocrit 35.8 % Mean Corpuscular Volume 79.0 FL Mean Corpuscular Hemoglobin 25.7 PG Mean Corpuscular Hemoglobin Concent 32.6 % Red Cell Distribution Width 15.9 % Platelet Count 311 TH/MM3 Mean Platelet Volume 8.6 FL Neutrophils (%) (Auto) 80.8 % Lymphocytes (%) (Auto) 11.0 % Monocytes (%) (Auto) 6.6 % Eosinophils (%) (Auto) 0.9 % Basophils (%) (Auto) 0.7 % Neutrophils # (Auto) 11.0 TH/MM3 Lymphocytes # (Auto) 1.5 TH/MM3 Monocytes # (Auto) 0.9 TH/MM3 Eosinophils # (Auto) 0.1 TH/MM3 Basophils # (Auto) 0.1 TH/MM3 CBC Comment DIFF FINAL Differential Comment Lactic Acid Level 1.7 mmol/L Urine Color LIGHT-YELLOW Urine Turbidity CLEAR Urine pH 6.5 Urine Specific [place] 1.006 Urine Protein 100 mg/dL Urine Glucose (UA) NEG mg/dL Urine Ketones NEG mg/dL Urine Occult Blood SMALL Urine Nitrite NEG Urine Bilirubin NEG Urine Urobilinogen LESS THAN 2.0 MG/DL Urine Leukocyte Esterase NEG Urine RBC 7 /hpf Urine WBC 1 /hpf Microscopic Urinalysis Comment CULT NOT INDICATED Blood Urea Nitrogen 24 MG/DL Creatinine 1.33 MG/DL Random Glucose 157 MG/DL Total Protein 8.1 GM/DL Albumin 3.0 GM/DL Calcium Level 8.7 MG/DL Alkaline Phosphatase 96 U/L Aspartate Amino Transf (AST/SGOT) 10 U/L Alanine Aminotransferase (ALT/SGPT) 11 U/L Total Bilirubin 0.3 MG/DL Sodium Level 138 MEQ/L Potassium Level 3.8 MEQ/L Chloride Level 103 MEQ/L Carbon Dioxide Level 26.1 MEQ/L Anion Gap 9 MEQ/L Estimat Glomerular Filtration Rate 48 ML/MIN Total Creatine Kinase 188 U/L Troponin I 0.12 NG/ML MDM Medical Decision Making Medical Screen Exam Complete: Yes Emergency Medical Condition: Yes Medical Record Reviewed: Yes Interpretation(s) ECG shows sinus tachycardia at 118 Differential Diagnosis Sepsis vs UTI vs C-spine fracture vs Diverticulitis vs dehydration vs rhabdo Narrative Course Patient is a 72 year old female who comes in after a fall when she was unable to get up. IV established, labs sent. Labs show an elevated WBC and elevated troponin. CT head and C-spine performed, show no acute abnormalities. XR of the shoulders, chest, pelvis show no acute abnormalities. Last [address] 08/14/17747 Signed Impressions: Service Date/Time: August 10:12 - CONCLUSION: 1. No focal or acute intracranial hemorrhage. 2. Stable bilateral chronic white matter changes. 3. No new or significant changes compared to the prior study. Fer Priest MD Chest X-Ray 08/14/17747 Signed Impressions: Service Date/Time: August 09:40 - CONCLUSION: No acute disease. No significant change has occurred. Fer Priest MD Abdomen/Pelvis CT 08/14/17747 Signed Impressions: Service Date/Time: August 10:22 - CONCLUSION: 1. No acute intra-abdominal/pelvic pathology. 2. Multiple calcified uterine fibroids. 3. 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 4. Scattered diverticulosis of the descending and sigmoid colon without inflammatory changes. Fer Priest MD Shoulder X-Ray 08/14/17 Signed Impressions: Service Date/Time: August 09:41 - CONCLUSION: 1. Advanced arthritic changes within the right shoulder. No acute fracture identified. Matt Newman MD Shoulder X-Ray 08/14/17 Signed Impressions: Service Date/Time: August 09:45 - CONCLUSION: 1. No acute fracture or joint dislocation. 2. Primary degenerative type changes. 3. Shoulder impingement syndrome. Fer Priest MD Pelvis X-Ray 08/14/17 Signed Impressions: Service Date/Time: August 09:38 - CONCLUSION: 1. No acute fracture or dislocation. Sohail Berger MD Cervical Spine CT 3/8/18 0000 Signed Impressions: Service Date/Time: August 10:12 - CONCLUSION: 1. No acute bony fracture. 2. Stable primary bony degenerative changes, disc degeneration and disc space narrowing at C5-6 and C6-7. 3. No new or significant changes compared to patient's recent prior study of 07/21/2016. Fer Priest MD Given Aspirin, started on Heparin due to elevated troponin. Admitted for further management. Diagnosis Primary Impression: Fall Qualified Codes: W19.XXXA - Unspecified fall, initial encounter Additional Impression: NSTEMI (non-ST elevated myocardial infarction) Admitting Information Admitting Physician Requests: Admit Tianna Millan MD Aug 14, 2017 08:08
[2017-08-14 08:24] LABS: BASOPHIL # 0.1 TH/MM3 (0-0.2); BASOPHIL % 0.7 % (0.0-2.0); EOSINOPHIL # 0.1 TH/MM3 (0-0.4); EOSINOPHIL % 0.9 % (0.0-4.0); HEMATOCRIT 35.8 % (35.0-46.0); HEMOGLOBIN 11.6 GM/DL (11.6-15.3); LYMPHOCYTE # 1.5 TH/MM3 (1.0-4.8); MEAN CORPUSCULAR HEMOGLOBIN 25.7 PG (27.0-34.0); MEAN CORPUSCULAR HGB CONC 32.6 % (32.0-36.0); MEAN PLATELET VOLUME 8.6 FL (7.0-11.0); MONO % 6.6 % (0.0-8.0); MONOCYTE # 0.9 TH/MM3 (0-0.9); NEUT % 80.8 % (16.0-70.0); PLATELET COUNT 311 TH/MM3 (150-450); RED BLOOD COUNT 4.52 MIL/MM3 (4.00-5.30); RED CELL DISTRIBUTION WIDTH 15.9 % (11.6-17.2); WHITE BLOOD COUNT 13.6 TH/MM3 (4.0-11.0)
[2017-08-14 08:42] LABS: ALKALINE PHOSPHATASE 96 U/L (45-117); TOTAL BILIRUBIN ADULT 0.3 MG/DL (0.2-1.0); TOTAL PROTEIN 8.1 GM/DL (6.4-8.2); TROPONIN I 0.12 NG/ML (0.02-0.05)
[2017-08-14 08:43] LABS: ALT (GPT) 11 U/L (10-53); AST (GOT) 10 U/L (15-37); BICARBONATE 26.1 MEQ/L (21.0-32.0); BLOOD UREA NITROGEN 24 MG/DL (7-18); CALCIUM 8.7 MG/DL (8.5-10.1); CHLORIDE 103 MEQ/L (98-107); CREATININE 1.33 MG/DL (0.50-1.00); GLOMERULAR FILTRATION RATE 48 ML/MIN (>89); GLUCOSE,RANDOM 157 MG/DL (74-106); SODIUM (NA) 138 MEQ/L (136-145)
[2017-08-14 08:50] LABS: BILIRUBIN, URINE NEG (NEG); BLOOD, URINE SMALL (NEG); GLUCOSE,URINE NEG (NEG); KETONE, URINE NEG (NEG); NITRITE,URINE NEG (NEG); PH, URINE 6.5 (5.0-8.5); URINE COLOR LIGHT-YELLOW (YELLW/STRAW); URINE LEUKOCYTE ESTERASE NEG (NEG)
[2017-08-14] MEDS ORDERED: ASPIRIN 81 MG CHEW TAB CHEW ONE (09:30)
--- NOTE | 2017-08-14 10:08 | RADRPT ---
EXAM DATE/TIME: 08/14/2017 09:45 [facility] COMPARISON: No previous studies available for comparison. INDICATIONS : Pain post fall. MEDICAL HISTORY : None. SURGICAL HISTORY : None. ENCOUNTER: Initial ACUITY: 1 day PAIN SCORE: 10/10 LOCATION: Left Shoulder. FINDINGS: Multiple view examination of the left shoulder demonstrates no evidence of fracture or dislocation. T here is osteopenia and degenerative changes at the shoulder joint. There is good alignment at the a.c . joint. There is some narrowing of the space between the top of the humerus and the undersurface of the acromion process. The soft tissues are grossly unremarkable.. CONCLUSION: 1. No acute fracture or joint dislocation. 2. Primary degenerative type changes. 3. Shoulder impingement syndrome. Fer Priest MD on August 14, 2017 at 10:05 Board Certified Radiologist. This report was verified electronically.
--- NOTE | 2017-08-14 10:08 | RADRPT ---
EXAM DATE/TIME: 08/14/2017 09:41 [facility] COMPARISON: TIBIA/FIBULA LEFT (AP/LAT), May 20, 2017, 23:25. INDICATIONS : Pain post fall. MEDICAL HISTORY : None. SURGICAL HISTORY : None. ENCOUNTER: Initial ACUITY: 1 day PAIN SCORE: 10/10 LOCATION: Right Shoulder. FINDINGS: The examination demonstrates advanced degenerative changes of the glenohumeral joint and the acromioc lavicular joint. I see no acute fracture or dislocation. The visualized portion of right lung apex is clear. CONCLUSION: 1. Advanced arthritic changes within the right shoulder. No acute fracture identified. Matt Newman MD on August 14, 2017 at 10:06 Board Certified Radiologist. This report was verified electronically.
--- NOTE | 2017-08-14 10:09 | RADRPT ---
EXAM DATE/TIME: 08/14/2017 09:40 [facility] COMPARISON: CHEST SINGLE AP, May 20, 2017, 20:21. INDICATIONS : Pain post fall. MEDICAL HISTORY : None. SURGICAL HISTORY : None. ENCOUNTER: Initial ACUITY: 1 day PAIN SCORE: 10/10 LOCATION: Bilateral chest FINDINGS: A single view of the chest demonstrates the lungs to be symmetrically aerated without evidence of mas s, infiltrate or effusion. The heart size is mildly enlarged but stable compared to the prior study. There are degenerative changes of both shoulder joints. The bony structures are grossly intact. No s ignificant changes compared to the prior study.. CONCLUSION: No acute disease. No significant change has occurred. Fer Priest MD on August 14, 2017 at 10:07 Board Certified Radiologist. This report was verified electronically.
--- NOTE | 2017-08-14 10:20 | RADRPT ---
EXAM DATE/TIME: 08/14/2017 09:38 [facility] COMPARISON: No previous studies available for comparison. INDICATIONS : Pain post fall. MEDICAL HISTORY : None. SURGICAL HISTORY : None. ENCOUNTER: Initial ACUITY: 1 day PAIN SCORE: 10/10 LOCATION: Pelvis. FINDINGS: A single frontal view of the pelvis demonstrates no evidence of fracture. The bony pelvic ring is in tact. Bony mineralization is normal. Small calcifications in the right pelvis may reflect calcified fibroid. Degenerative changes of the hips bilaterally. The soft tissues are intact. CONCLUSION: 1. No acute fracture or dislocation. Sohail Berger MD on August 14, 2017 at 10:06 Board Certified Radiologist. This report was verified electronically.
--- NOTE | 2017-08-14 10:30 | RADRPT ---
EXAM DATE/TIME: 08/14/2017 10:12 [facility] COMPARISON: CT BRAIN W/O CONTRAST, May 20, 2017, 20:11. INDICATIONS : Fall, general weakness. RADIATION DOSE: 56.35 CTDIvol (mGy) MEDICAL HISTORY : Stroke. Cardiovascular disease Hypertension. SURGICAL HISTORY : None. ENCOUNTER: Initial ACUITY: 1 day PAIN SCALE: 0/10 LOCATION: cranial TECHNIQUE: Multiple contiguous axial images were obtained of the head. Using automated exposure control and adj ustment of the mA and/or kV according to patient size, radiation dose was kept as low as reasonably a chievable to obtain optimal diagnostic quality images. DICOM format image data is available electro nically for review and comparison. FINDINGS: CEREBRUM: The ventricles are normal for age. No evidence of midline shift, mass lesion, hemorrhage or acute in farction. There are stable chronic white matter changes compared to the prior study. No extra-axial fluid collections are seen. POSTERIOR FOSSA: The cerebellum and brainstem are intact. The 4th ventricle is midline. The cerebellopontine angle i s unremarkable. EXTRACRANIAL: The visualized portion of the orbits is intact. SKULL: The calvaria is intact. No evidence of skull fracture. CONCLUSION: 1. No focal or acute intracranial hemorrhage. 2. Stable bilateral chronic white matter changes. 3. No new or significant changes compared to the prior study. Fer Priest MD on August 14, 2017 at 10:26 Board Certified Radiologist. This report was verified electronically.
--- NOTE | 2017-08-14 10:41 | RADRPT ---
EXAM DATE/TIME: 08/14/2017 10:22 [facility] COMPARISON: No previous studies available for comparison. INDICATIONS : Abdominal pain after fall. IV CONTRAST: 72 cc Omnipaque 350 (iohexol) IV ORAL CONTRAST: No oral contrast ingested. RADIATION DOSE: 33.22 CTDIvol (mGy) ; Patient body habitus MEDICAL HISTORY : Stroke. Cardiovascular disease Hypertension.Diabetes. SURGICAL HISTORY : None. ENCOUNTER: Initial ACUITY: 1 day PAIN SCALE: 6/10 LOCATION: Bilateral lower quadrant TECHNIQUE: Volumetric scanning of the abdomen and pelvis was performed. Using automated exposure control and ad justment of the mA and/or kV according to patient size, radiation dose was kept as low as reasonably achievable to obtain optimal diagnostic quality images. DICOM format image data is available electro nically for review and comparison. The lack of IV contrast limits the diagnosis for certain organ pa thology. FINDINGS: LOWER LUNGS: The visualized lower lungs are clear. LIVER: Homogeneous density without lesion. There is no dilation of the biliary tree. No calcified gallston es. SPLEEN: Normal size without lesion. PANCREAS: Within normal limits. KIDNEYS: Normal in size and shape. There is no mass, stone or hydronephrosis. There is a 5 mm cyst versus ang iomyolipoma along the midpole the left kidney. ADRENAL GLANDS: Within normal limits. VASCULAR: There is no aortic aneurysm. BOWEL/MESENTERY: The stomach, small bowel, and colon demonstrate no acute abnormality. There is no free intraperitone al air or fluid. Diverticulosis of the descending and sigmoid colon without inflammatory changes. ABDOMINAL WALL: Within normal limits. RETROPERITONEUM: There is no lymphadenopathy. BLADDER: No wall thickening or mass. REPRODUCTIVE: Multiple calcified uterine fibroids. INGUINAL: There is no lymphadenopathy or hernia. MUSCULOSKELETAL: Within normal limits for patient age. Primary degenerative changes. No acute fracture. CONCLUSION: 1. No acute intra-abdominal/pelvic pathology. 2. Multiple calcified uterine fibroids. 3. 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 4. Scattered diverticulosis of the descending and sigmoid colon without inflammatory changes. Fer Priest MD on August 14, 2017 at 10:35 Board Certified Radiologist. This report was verified electronically.
--- NOTE | 2017-08-14 10:52 | RADRPT ---
EXAM DATE/TIME: 08/14/2017 10:12 [facility] COMPARISON: CT CERVICAL SPINE W/O CONTRAST, May 20, 2017, 20:11. INDICATIONS : Fall, neck pain. RADIATION DOSE: 36.22 CTDIvol (mGy) ; Patient body habitus MEDICAL HISTORY : Stroke. Cardiovascular disease Hypertension. SURGICAL HISTORY : None. ENCOUNTER: Initial ACUITY: 1 day PAIN SCALE: 4/10 LOCATION: Bilateral neck TECHNIQUE: Volumetric scanning of the cervical spine was performed. Multiplanar reconstructions in the sagittal, coronal and oblique axial planes were performed. Using automated exposure control and adjustment o f the mA and/or kV according to patient size, radiation dose was kept as low as reasonably achievable to obtain optimal diagnostic quality images. DICOM format image data is available electronically f or review and comparison. FINDINGS: Today's exam is compared to the recent prior study of 05/20/2017. There continues to be primarily bon y degenerative changes with disc degeneration disc space at C5-6 and C6-7. No acute bony fractures. T here's been no new or significant changes with the appearance of the cervical spine compared to the p rior study. There is a disc osteophyte complex posteriorly at C5-6. There is facet arthritis at multi ple levels. No new or significant changes. CONCLUSION: 1. No acute bony fracture. 2. Stable primary bony degenerative changes, disc degeneration and disc space narrowing at C5-6 and C 6-7. 3. No new or significant changes compared to patient's recent prior study of 07/21/2016. Fer Priest MD on August 14, 2017 at 10:48 Board Certified Radiologist. This report was verified electronically.
--- NOTE | 2017-08-14 10:59 | HHI.HP ---
[facility] Service Family Medicine Primary Care Physician Kane Leal M.D. Admission Diagnosis NSTEMI, Fall Diagnoses: International Travel<30 Days: No Contact w/Intl Traveler<30days: No Known Affected Area: No History of Present Illness Patient is a 72-year-old Female with PMHx of DM, HTN and CVA with residual slurred speech who presented to the ED via [facility] after sustaining a fall this morning at home. Patient reports that as she used her walker to get up for the sofa and then noted her legs would not move. Next thing she remembers she had fallen on her back. Denies hitting her head, LOC, auras, blurry vision, CP, SOB , confusion, convulsions, biting of tongue or numbness/tingling. Patient was on the floor after her fall for about 1 hour until she was able to call her son who called 911. She does endorse urinary incontinence, however it is unclear whether this is a chronic issue for her. She reports BL shoulder pain, BL leg pain, RUQ pain and neck pain. She also states that her body feels "strange" since the fall and is unable to elaborate further about what she means by that statement. Patient also reports that 3 months ago she had a similar episode where she fell and injured her left side after the leg would not move while she was trying to walk using her walker. Of note, patient stated that her CVA occurred 6months to 1 yr ago she had residual Left sided weakness that improved with physical therapy. Her dysarthria persisted. She will be starting speech therapy soon. Brain MRI 12/02/16: Subacute left thalamic lacunar infarct. Initial CT head on 12/02/16 was normal however repeat CT head on 12/05/16 showed small lacunar infarct in the left basal ganglia, no acute hemorrhage or mass effect. (Hailee Leung MD, R1) Review of Systems Constitutional: DENIES: Fever, Dizziness Eyes: DENIES: Blurred vision, Vision loss Ears, nose, mouth, throat: DENIES: Tinnitus, Vertigo Respiratory: DENIES: Cough, Shortness of breath Cardiovascular: COMPLAINS OF: Lower Extremity Edema (present for the past 2 months), DENIES: Chest pain, Palpitations Gastrointestinal: COMPLAINS OF: Abdominal pain (started when she got to the ED) , DENIES: Bloody stools, Constipation, Diarrhea, Nausea, Vomiting Genitourinary: COMPLAINS OF: Urinary frequency, DENIES: Dysuria Musculoskeletal: COMPLAINS OF: Joint pain, Neck pain Integumentary: DENIES: Rash Neurologic: DENIES: Headache, Seizures Psychiatric: COMPLAINS OF: Confusion (Hailee Leung MD, R1) Past Family Social History Past Medical History CVA 6month to 1 yr ago, slurred s/p PT DM high cholesterol HTN Past Surgical History head surgery ? Reported Medications Reported Meds & Active Scripts Active Codeine-Acetaminophen 30-300 mg Tab 1 Tab PO Q4H PRN Hydrochlorothiazide 12.5 Mg Cap 12.5 Mg PO DAILY Novolog Inj (Insulin Aspart) 1,000 Unit/10 Ml Vial 8 Units SQ TIDAC 30 Days Levemir Inj (Insulin Detemir) 1,000 unit/ 10 ML Vial 26 Units SQ Q12HR 30 Days Hydralazine HCl 50 Mg Tablet 75 Mg PO Q8HR 30 Days Atorvastatin (Atorvastatin Calcium) 40 Mg Tab 40 Mg PO HS Aspirin 325 Mg Tab 325 Mg PO DAILY Norvasc (Amlodipine Besylate) 10 Mg Tab 10 Mg PO DAILY Sucralfate Liq (Sucralfate) 1 Gm/10 Ml Nancy 1 Gm PO ACHS Pantoprazole (Pantoprazole Sodium) 40 Mg Tab 40 Mg PO DAILY (Hailee Leung MD, R1) Allergies: Coded Allergies: No Known Allergies (Verified , 12/02/16) Family History Denies any health issues in the family Social History Patient lives alone at home. Her son, Arjun comes to help her out when he can. Denies smoking, alcohol or illicit drug use. (Hailee Leung MD, R1) Physical Exam Vital Signs Vital Signs Date Time Temp Pulse Resp B/P (MAP) Pulse Ox O2 Delivery O2 Flow Rate FiO2 08/14/17 09:00 18 08/14/17 08:07 98 Room Air 08/14/17 07:46 130 20 99 Room Air 08/14/17 07:46 99.8 128 20 122/87 (99) 98 Room Air 08/14/17 07:42 99.8 Physical Exam GENERAL: This is a well-nourished, well-developed patient, in no apparent distress. SKIN: No rashes, ecchymoses or lesions. Cool and dry. HEAD: Atraumatic. Normocephalic. EYES: Pupils equal round and reactive. Extraocular motions intact. No scleral icterus. No injection or drainage. ENT: Nose without bleeding, purulent drainage or septal hematoma. Throat without erythema, tonsillar hypertrophy or exudate. Uvula midline. Airway patent. NECK: Trachea midline. No JVD or lymphadenopathy. Supple, nontender, no meningeal signs. Neck brace in place. CARDIOVASCULAR: Regular rate and rhythm without murmurs, gallops, or rubs. RESPIRATORY: Clear to auscultation. Breath sounds equal bilaterally. No wheezes , rales, or rhonchi. GASTROINTESTINAL: Obese Abdomen, soft, non-tender. No guarding or rebound. Unable to fully evaluate for hepato-splenomegaly, or palpable masses. MUSCULOSKELETAL: Extremities without clubbing, cyanosis. LE edema BL. No joint tenderness, effusion, or edema noted. NEUROLOGICAL: AAOx3. Cranial nerves II through XII intact. 5/5 strength on Right extremities (upper and lower). 3/5 strength in Left upper extremity. 4/5 strength in Left lower extremities. slurred speech. Laboratory Laboratory Tests Test 08/14/17 07:50 08/14/17 07:52 08/14/17 07:55 White Blood Count 13.6 Red Blood Count 4.52 Hemoglobin 11.6 Hematocrit 35.8 Mean Corpuscular Volume 79.0 Mean Corpuscular Hemoglobin 25.7 Mean Corpuscular Hemoglobin Concent 32.6 Red Cell Distribution Width 15.9 Platelet Count 311 Mean Platelet Volume 8.6 Neutrophils (%) (Auto) 80.8 Lymphocytes (%) (Auto) 11.0 Monocytes (%) (Auto) 6.6 Eosinophils (%) (Auto) 0.9 Basophils (%) (Auto) 0.7 Neutrophils # (Auto) 11.0 Lymphocytes # (Auto) 1.5 Monocytes # (Auto) 0.9 Eosinophils # (Auto) 0.1 Basophils # (Auto) 0.1 CBC Comment DIFF FINAL Differential Comment Lactic Acid Level 1.7 Urine Color LIGHT-YELLOW Urine Turbidity CLEAR Urine pH 6.5 Urine Specific [place] 1.006 Urine Protein 100 Urine Glucose (UA) NEG Urine Ketones NEG Urine Occult Blood SMALL Urine Nitrite NEG Urine Bilirubin NEG Urine Urobilinogen LESS THAN 2.0 Urine Leukocyte Esterase NEG Urine RBC 7 Urine WBC 1 Microscopic Urinalysis Comment CULT NOT INDICATED Blood Urea Nitrogen 24 Creatinine 1.33 Random Glucose 157 Total Protein 8.1 Albumin 3.0 Calcium Level 8.7 Alkaline Phosphatase 96 Aspartate Amino Transf (AST/SGOT) 10 Alanine Aminotransferase (ALT/SGPT) 11 Total Bilirubin 0.3 Sodium Level 138 Potassium Level 3.8 Chloride Level 103 Carbon Dioxide Level 26.1 Anion Gap 9 Estimat Glomerular Filtration Rate 48 Total Creatine Kinase 188 Troponin I 0.12 Date/Time Source Procedure Growth Status 08/14/17 07:55 Blood Peripheral Aerobic Blood Culture Pending Received 08/14/17 07:55 Blood Peripheral Anaerobic Blood Culture Pending Received (Hailee Leung MD, R1) Result Diagram: 08/14/17 0750 08/14/17 0755 Imaging Last Impressions Head CT 08/14/17747 Signed Impressions: Service Date/Time: August 10:12 - CONCLUSION: 1. No focal or acute intracranial hemorrhage. 2. Stable bilateral chronic white matter changes. 3. No new or significant changes compared to the prior study. Fer Priest MD Chest X-Ray 08/14/17747 Signed Impressions: Service Date/Time: August 09:40 - CONCLUSION: No acute disease. No significant change has occurred. Fer Priest MD Abdomen/Pelvis CT 08/14/17747 Signed Impressions: Service Date/Time: August 10:22 - CONCLUSION: 1. No acute intra-abdominal/pelvic pathology. 2. Multiple calcified uterine fibroids. 3. 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 4. Scattered diverticulosis of the descending and sigmoid colon without inflammatory changes. Fer Priest MD Shoulder X-Ray 08/14/17 Signed Impressions: Service Date/Time: August 09:41 - CONCLUSION: 1. Advanced arthritic changes within the right shoulder. No acute fracture identified. Matt Newman MD Pelvis X-Ray 08/14/17 Signed Impressions: Service Date/Time: August 09:38 - CONCLUSION: 1. No acute fracture or dislocation. Sohail Berger MD Cervical Spine CT 3/8/18 0000 Signed Impressions: Service Date/Time: August 10:12 - CONCLUSION: 1. No acute bony fracture. 2. Stable primary bony degenerative changes, disc degeneration and disc space narrowing at C5-6 and C6-7. 3. No new or significant changes compared to patient's recent prior study of 07/21/2016. Fer Priest MD (Hailee Leung MD, R1) Caprini VTE Risk Assessment Caprini VTE Risk Assessment: Mod/High Risk (score >= 2) Caprini Risk Assessment Model Point Value = 1 Point Value = 2 Point Value = 3 Point Value = 5 Age 41-60 Minor surgery BMI > 25 kg/m2 Swollen legs Varicose veins or History of unexplained or recurrent spontaneous Oral contraceptives or hormone replacement Sepsis (< 1 month) Serious lung disease, including pneumonia (< 1 month) Abnormal pulmonary function Acute myocardial infarction Congestive heart failure (< 1 month) History of inflammatory bowel disease Medical patient at bed rest Age 61-74 Arthroscopic surgery Major open surgery (> 45 min) Laparoscopic surgery (> 45 min) Malignancy Confined to bed (> 72 hours) Immobilizing plaster cast Central venous access Age >= 75 History of VTE Family history of VTE Factor V Leiden Prothrombin [id number] Lupus anticoagulant Anticardiolipin antibodies Elevated serum homocysteine Heparin-induced thrombocytopenia Other congenital or acquired thrombophilia Stroke (< 1 month) Elective arthroplasty Hip, pelvis, or leg fracture Acute spinal cord injury (< 1 month) Prophylaxis Regimen Total Risk Factor Score Risk Level Prophylaxis Regimen 0-1 Low Early ambulation 2 Moderate Order ONE of the following: *Sequential Compression Device (SCD) *Heparin 5000 units SQ BID 3-4 Higher Order ONE of the following medications: *Heparin 5000 units SQ TID *Enoxaparin/Lovenox 40 mg SQ daily (WT < 150 kg, CrCl > 30 mL/min) *Enoxaparin/Lovenox 30 mg SQ daily (WT < 150 kg, CrCl > 10-29 mL/min) *Enoxaparin/Lovenox 30 mg SQ BID (WT < 150 kg, CrCl > 30 mL/min) AND/OR *Sequential Compression Device (SCD) 5 or more Highest Order ONE of the following medications: *Heparin 5000 units SQ TID (Preferred with Epidurals) *Enoxaparin/Lovenox 40 mg SQ daily (WT < 150 kg, CrCl > 30 mL/min) *Enoxaparin/Lovenox 30 mg SQ daily (WT < 150 kg, CrCl > 10-29 mL/min) *Enoxaparin/Lovenox 30 mg SQ BID (WT < 150 kg, CrCl > 30 mL/min) AND *Sequential Compression Device (SCD) (Hailee Leung MD, R1) Assessment and Plan Assessment and Plan Patient is a 72-year-old Female with PMHx of DM, HTN and CVA with residual slurred speech who presented to the ED via [facility] after sustaining a fall this morning at home. In the ED, patient was found to have elevated initial troponin of 0.12. Admitted for further w/u. Code Status Full code Discussed Condition With SDW Dr. Norman Phillips (Hailee Leung MD, R1) Attending Attestation Ms. Harrison was seen by me at 1351 on 08-14-17 after she was presented to me by the medicine team. this 72 yo female fell at home, does not think she hit her head , but was unable to get up. Has history of CVA. She called her son who called EMS. She reports being weaker lately. She lives alone and apparently has been incontinent of urine of late. Otherwise, history is as noted above. I agree with the physical findings as noted. Patient seen and examined. Case reviewed and discussed with the resident team. Agree with plan of care as discussed with me and documented in the resident note. (Ainsley Phillips MD) Problem List: (1) Elevated troponin ICD Codes: R74.8 - Abnormal levels of other serum enzymes Status: Acute Plan: Patient found to have elevated initial troponin of 0.12. Denies CP or SOB. Pt started on heparin drip in ED trend serial troponin and EKG placed on telemetry consult cardiology -f/u am labs (2) Fall ICD Codes: W19.XXXA - Unspecified fall, initial encounter Plan: Patient fell on her back this morning after experiencing inability to move her leg. She remained on the floor for 1 hour before EMS arrived at her home. Imaging: CT cervical spine: no acute bony fx. no significant changes compared to her prior study on 07/2016. pelvis XRAY: no acute fx or dislocation. Left shoulder xray: No acute fracture or dislocation, Primary degenerative type changes. Shoulder impingement syndrome. Right shoulder x-ray: Advanced arthritic changes, no acute fractures. CT head: no focal or acute intracranial hemorrhage, no new or nicotine changes compared to the prior study. Abdomen/pelvis CT: No acute intra-abdominal or pelvic pathology, calcified uterine fibroids, cyst left kidney, scattered diverticulosis of descending and sigmoid colon without inflammatory changes CXR: no acute disease Pt placed on bedrest neuro checks Q4h (3) Dysarthria ICD Codes: R47.1 - Dysarthria and anarthria Status: Chronic Plan: Patient with residual slurred speech since her CVA dated to have occurred in November 2016, per EMR review. -speech consulted, appreciate recommendations (4) CVA (cerebral vascular accident) ICD Codes: I63.9 - Cerebral infarction, unspecified Status: Chronic Plan: CVA occurred 6months to 1 yr ago she had residual Left sided weakness that improved with physical therapy. Patient with residual dysarthria Previous imaging: Brain MRI 12/02/16: Subacute left thalamic lacunar infarct. Initial CT head on 12/02/16 was normal however repeat CT head on 12/05/16 showed small lacunar infarct in the left basal ganglia, no acute hemorrhage or mass effect. continue with asa (5) DM (diabetes mellitus) ICD Codes: E11.9 - Type 2 diabetes mellitus without complications Status: Chronic Plan: Levemir 13 units HS ssi low dose Bedside glucose checks hypoglycemia protocol continue to monitor (6) Hypertension ICD Codes: I10 - Essential (primary) hypertension Status: Chronic Plan: Patient with elevated BP, she did not take her BP medication this am. c/w home medication -clonidine PRN for HTN protocol continue to monitor (7) HLD (hyperlipidemia) ICD Codes: E78.5 - Hyperlipidemia, unspecified Status: Chronic Plan: c/w lipitor (8) Nutrition, metabolism, and development symptoms ICD Codes: R63.8 - Other symptoms and signs concerning food and fluid intake Plan: Fluids:not indicated at this time, s/p 1 NS bolus in ED Electrolytes: replete as needed Nutrition: diabetic diet DVT ppx: pt on heparin drip (Hailee Leung MD, R1) Problem Qualifiers (1) Fall: Qualified Codes: W19.XXXA - Unspecified fall, initial encounter Hailee Leung MD, R1 Aug 14, 2017 10:59 Ainsley Phillips MD Aug 15, 2017 11:10
[2017-08-14] MEDS ORDERED: MAGNESIUM HYDROXIDE SUSP 30 ML CUP PO PRN (12:00)
[2017-08-14] MEDS ORDERED: SENNOSIDES 8.6 MG TAB PO PRN (12:00)
[2017-08-14] MEDS ORDERED: NALOXONE HCL 0.4 MG/ML AMP IV PUSH PRN (12:00)
[2017-08-14] MEDS ORDERED: SODIUM CHLORIDE 0.9% FLUSH 10 ML FLUSH IV FLUSH PRN (12:00)
[2017-08-14] MEDS ORDERED: LACTULOSE SYRUP 20 GM/30 ML CUP PO PRN (12:00)
[2017-08-14] MEDS ORDERED: BISACODYL 10 MG SUPP RECTAL PRN (12:00)
[2017-08-14] MEDS ORDERED: DEXTROSE 50% IN WATER 50 ML VIAL(D50) IV PUSH PRN (12:15)
[2017-08-14] MEDS ORDERED: PILL SPLITTER OTHER PRN (12:15)
[2017-08-14] MEDS ORDERED: GLUCAGON 1 MG/ML VIAL OTHER PRN (12:15)
--- NOTE | 2017-08-14 13:44 | EKG ---
Date Performed: 08/14/2017 Time Performed: 08:04:04 PTAGE: 72 years EKG: SINUS TACHYCARDIA POSSIBLE LEFT ATRIAL ENLARGEMENT ABNORMAL RHYTHM ECG PREVIOUS TRACING : 05/20/2017 20.35 No significant change from previous tracing noted. DOCTOR: Tristan Moss Interpretating Date/Time 08/14/2017 13:42:24
[2017-08-14] MEDS: hydrALAZINE HCL 50 MG TAB PO SCH ×2 (14:09→20:21)
[2017-08-14] MEDS: SUCRALFATE 1 GM/10 ML CUP PO SCH ×3 (15:18→20:21)
[2017-08-14] MEDS ORDERED: HEPARIN SODIUM - IV 10,000 UNITS/10 ML VIAL IV PUSH PRN ×2 (16:45)
[2017-08-14] MEDS: INSULIN ASPART SUPPLEMENTAL SCALE SQ SCH ×2 (17:00→21:33)
[2017-08-14] MEDS: cloNIDine HCL 0.1 MG TAB PO PRN (19:09)
[2017-08-14] MEDS: DOCUSATE SODIUM 50 MG/SENNA 8.6 MG TAB PO SCH (20:22)
[2017-08-14] MEDS: SODIUM CHLORIDE 0.9% FLUSH 10 ML FLUSH IV FLUSH SCH (20:22)
[2017-08-14] MEDS: ATORVASTATIN 40 MG TAB PO SCH (20:22)
[2017-08-14] MEDS: HEPARIN-D5W 25,000 U/250 ML 250 ML IV PRN (20:31)
[2017-08-14] MEDS: INSULIN DETEMIR 100 UNITS/ML VIAL SQ SCH (21:33)
--- NOTE | 2017-08-14 23:31 | EKG ---
Date Performed: 08/14/2017 Time Performed: 22:07:32 PTAGE: 72 years EKG: Sinus rhythm Normal ECG PREVIOUS TRACING : 08/14/2017 14.11 Since the prior tracing, there has been no significant avitia DOCTOR: Ranjeet Braswell Interpretating Date/Time 08/14/2017 23:30:36
[2017-08-15] VITALS (27 sets, daily range): BP systolic 140–169; BP diastolic 47–94; PULSE 73–104; RESP 18–20; TEMP 98–99.7; O2SAT 97–99
--- NOTE | 2017-08-15 00:02 | EKG ---
Date Performed: 08/14/2017 Time Performed: 14:11:58 PTAGE: 72 years EKG: Sinus rhythm INFERIOR MYOCARDIAL INFARCTION ABNORMAL ECG PREVIOUS TRACING : 08/14/2017 08.04 Since the prior tracing, there has been no significant avitia DOCTOR: Ranjeet Braswell Interpretating Date/Time 08/15/2017 00:00:30
[2017-08-15] MEDS: cloNIDine HCL 0.1 MG TAB PO PRN (00:22)
[2017-08-15] MEDS: hydrALAZINE HCL 50 MG TAB PO SCH ×3 (06:00→20:33)
--- NOTE | 2017-08-15 07:56 | PD.CONS ---
HPI Service cardiology Consult Requested By Reason for Consult elevated troponin Primary Care Physician Kane Leal M.D. History of Present Illness This is a 72 yo AAF with no prior cardiac history with diabetes, prior CVA in 2017 and HTN who presented after a fall at home yesterday. She describes trying to get up and walk but her legs "wouldn't move" and she fell back; no LOC, syncope or head injury. Upon presentation to the ED her SBP was elevated as high as 216. Troponins also have been trending upwards from 0.12 to 0.20 overnight. ECG shows no concerning ST segment or T wave changes. Echo in 2017 noted to have normal EF. This morning she is feeling well and denies chest pain or SOB. She notes mild lower extremity edema for the past month that improves with elevation of legs. Review of Systems Consitutional: DENIES: Fatigue, Fever, Chills, Weight gain, Weight loss Respiratory: DENIES: Cough, Snoring, Shortness of breath, Wheezing, Sputum production Cardiovascular: DENIES: Chest pain, Palpitations, Syncope, Tachycardia Gastrointestinal: DENIES: Nausea, Vomiting, Change in bowel habits, Reflux, Bloody stools, Melena Past Family Social History Allergies: Coded Allergies: No Known Allergies (Verified , 12/02/16) Past Medical History CVA 6month to 1 yr ago, slurred s/p PT DM high cholesterol HTN Past Surgical History head surgery ? Reported Medications Reported Meds & Active Scripts Active Codeine-Acetaminophen 30-300 mg Tab 1 Tab PO Q4H PRN Hydrochlorothiazide 12.5 Mg Cap 12.5 Mg PO DAILY Novolog Inj (Insulin Aspart) 1,000 Unit/10 Ml Vial 8 Units SQ TIDAC 30 Days Levemir Inj (Insulin Detemir) 1,000 unit/ 10 ML Vial 26 Units SQ Q12HR 30 Days Hydralazine HCl 50 Mg Tablet 75 Mg PO Q8HR 30 Days Senna Plus 8.6-50 mg (Sennosides-Docusate Sodium) 1 Tab Tab 1 Tab PO BID Atorvastatin (Atorvastatin Calcium) 40 Mg Tab 40 Mg PO HS Aspirin 325 Mg Tab 325 Mg PO DAILY Norvasc (Amlodipine Besylate) 10 Mg Tab 10 Mg PO DAILY Sucralfate Liq (Sucralfate) 1 Gm/10 Ml Nancy 1 Gm PO ACHS Pantoprazole (Pantoprazole Sodium) 40 Mg Tab 40 Mg PO DAILY Active Ordered Medications Current Medications Medications (Trade) Dose Ordered Sig/Tresa Route Start Time Stop Time Status Last Admin (Heparin Inj) 5,000 units UNSCH PRN IV PUSH 08/14/17 16:45 (Heparin Inj) 2,500 units UNSCH PRN IV PUSH 08/14/17 16:45 Heparin Sodium/ Dextrose 250 ml @ 10 mls/hr TITRATE PRN IV 08/14/17 10:45 08/14/17 20:31 (Lipitor) 40 mg HS PO 08/14/17 21:00 08/14/17 20:22 (Apresoline) 75 mg Q8HR PO 08/14/17 14:00 08/15/17 06:00 (Microzide) 12.5 mg DAILY PO 08/15/17 09:00 (Protonix) 40 mg DAILY PO 08/15/17 09:00 (Carafate Liq) 1 gm ACHS PO 08/14/17 12:00 08/14/17 20:21 (NS Flush) 2 ml UNSCH PRN IV FLUSH 08/14/17 12:00 (NS Flush) 2 ml BID IV FLUSH 08/14/17 21:00 08/14/17 20:22 (Tylenol) 650 mg Q4H PRN PO 08/14/17 12:00 (Narcan Inj) 0.4 mg UNSCH PRN IV PUSH 08/14/17 12:00 (Barbie-Colace) 1 tab BID PO 08/14/17 21:00 08/14/17 20:22 (Milk Of Magnesia Liq) 30 ml Q12H PRN PO 08/14/17 12:00 (Senokot) 17.2 mg Q12H PRN PO 08/14/17 12:00 (Dulcolax Supp) 10 mg DAILY PRN RECTAL 08/14/17 12:00 (Lactulose Liq) 30 ml DAILY PRN PO 08/14/17 12:00 (Pill Splitter) 1 ea UNSCH PRN OTHER 08/14/17 12:15 (Levemir Inj) 13 units Q12HR SQ 08/14/17 21:00 08/14/17 21:33 (D50w (Vial) Inj) 50 ml UNSCH PRN IV PUSH 3/8/18 12:15 (Glucagon Inj) 1 mg UNSCH PRN OTHER 08/14/17 12:15 (NovoLOG SUPPLEMENTAL SCALE) 1 ACHS SLIDING SCALE SQ 08/14/17 17:00 08/14/17 21:33 (Norvasc) 10 mg DAILY PO 08/14/17 17:00 08/14/17 18:09 (Catapres) 0.1 mg Q6H PRN PO 08/14/17 17:00 08/15/17 00:22 Family History Past Medical History CVA 6month to 1 yr ago, slurred s/p PT DM Denies any health issues in the family Social History Patient lives alone at home. Her son, Arjun comes to help her out when he can. Denies smoking, alcohol or illicit drug use. Physical Exam Vital Signs Vital Signs Date Time Temp Pulse Resp B/P (MAP) Pulse Ox O2 Delivery O2 Flow Rate FiO2 08/15/17 07:00 80 08/15/17 06:00 83 08/15/17 05:00 84 08/15/17 04:00 73 08/15/17 03:00 98.0 84 20 144/78 (100) 97 08/15/17 03:00 81 08/15/17 02:00 85 08/15/17 01:00 96 08/15/17 00:00 100 08/15/17 00:00 162/84 (110) 08/14/17 23:00 90 08/14/17 23:00 98.1 90 20 183/90 (121) 97 08/14/17 22:00 96 08/14/17 21:00 93 08/14/17 20:00 103 08/14/17 19:45 21 08/14/17 19:00 107 08/14/17 19:00 98.4 103 18 174/92 (119) 98 08/14/17 18:45 98.3 108 18 211/109 (143) 99 08/14/17 18:10 08/14/17 18:00 116 08/14/17 18:00 105 20 200/100 (133) 99 Room Air 08/14/17 15:00 98.3 109 20 217/114 (148) 97 Room Air 08/14/17 12:00 98.4 109 20 216/102 (140) 99 Room Air 08/14/17 09:00 18 08/14/17 08:07 98 Room Air Physical Exam GENERAL: SKIN: Warm and dry. HEAD: Atraumatic. Normocephalic. EYES: Pupils equal and round. ENT: No nasal bleeding or discharge. Mucous membranes pink and moist. NECK: Trachea midline. No JVD. CARDIOVASCULAR: Regular rate and rhythm. no murmurs RESPIRATORY: No accessory muscle use. Clear to auscultation. Breath sounds equal bilaterally. GASTROINTESTINAL: Abdomen soft, non-tender, nondistended. Hepatic and splenic margins not palpable. MUSCULOSKELETAL: Extremities without clubbing, cyanosis, or edema. No obvious deformities. NEUROLOGICAL: Awake and alert. No obvious cranial nerve deficits. Normal speech. PSYCHIATRIC: Appropriate mood and affect; insight and judgment normal. Laboratory Laboratory Tests Test 08/14/17 07:55 08/14/17 15:42 08/14/17 16:45 08/14/17 22:32 Blood Urea Nitrogen 24 Creatinine 1.33 Random Glucose 157 Total Protein 8.1 Albumin 3.0 Calcium Level 8.7 Alkaline Phosphatase 96 Aspartate Amino Transf (AST/SGOT) 10 Alanine Aminotransferase (ALT/SGPT) 11 Total Bilirubin 0.3 Sodium Level 138 Potassium Level 3.8 Chloride Level 103 Carbon Dioxide Level 26.1 Anion Gap 9 Estimat Glomerular Filtration Rate 48 Total Creatine Kinase 188 Troponin I 0.12 0.21 0.20 Activated Partial Thromboplast Time 46.8 Test 08/15/17 02:34 Activated Partial Thromboplast Time 40.1 Date/Time Source Procedure Growth Status 08/14/17 07:55 Blood Peripheral Aerobic Blood Culture Pending Received 08/14/17 07:55 Blood Peripheral Anaerobic Blood Culture Pending Received Result Diagram: 08/14/17 0750 08/14/17 0755 Imaging Last [address] 08/14/17747 Signed Impressions: Service Date/Time: August 10:12 - CONCLUSION: 1. No focal or acute intracranial hemorrhage. 2. Stable bilateral chronic white matter changes. 3. No new or significant changes compared to the prior study. Fer Priest MD Chest X-Ray 08/14/17747 Signed Impressions: Service Date/Time: August 09:40 - CONCLUSION: No acute disease. No significant change has occurred. Fer Priest MD Abdomen/Pelvis CT 08/14/17 0748 Signed Impressions: Service Date/Time: August 10:22 - CONCLUSION: 1. No acute intra-abdominal/pelvic pathology. 2. Multiple calcified uterine fibroids. 3. 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 4. Scattered diverticulosis of the descending and sigmoid colon without inflammatory changes. Fer Priest MD Shoulder X-Ray 08/14/17 0000 Signed Impressions: Service Date/Time: August 09:41 - CONCLUSION: 1. Advanced arthritic changes within the right shoulder. No acute fracture identified. Matt Newman MD Shoulder X-Ray 08/14/17 0000 Signed Impressions: Service Date/Time: August 09:45 - CONCLUSION: 1. No acute fracture or joint dislocation. 2. Primary degenerative type changes. 3. Shoulder impingement syndrome. Fer Priest MD Pelvis X-Ray 08/14/17 0000 Signed Impressions: Service Date/Time: August 09:38 - CONCLUSION: 1. No acute fracture or dislocation. Sohail Berger MD Cervical Spine CT 08/14/17 0000 Signed Impressions: Service Date/Time: August 10:12 - CONCLUSION: 1. No acute bony fracture. 2. Stable primary bony degenerative changes, disc degeneration and disc space narrowing at C5-6 and C6-7. 3. No new or significant changes compared to patient's recent prior study of 07/21/2016. Fer Priest MD Assessment and Plan Problem List: (1) HTN (hypertension) ICD Codes: I10 - Essential (primary) hypertension Status: Acute (2) Elevated troponin ICD Codes: R74.8 - Abnormal levels of other serum enzymes Status: Acute Assessment and Plan This is a 72 yo AAF with no prior cardiac history with diabetes, prior CVA in 2017 and HTN who presented after a fall at home yesterday. She describes trying to get up and walk but her legs "wouldn't move" and she fell back; no LOC, syncope or head injury. Upon presentation to the ED her SBP was elevated as high as 216. Troponins also have been trending upwards from 0.12 to 0.20 overnight. ECG shows no concerning ST segment or T wave changes. Echo in 2017 noted to have normal EF elevated troponin- may be demand mediated due to elevated BP and/or dehydration, no chest pain will obtain lexiscan to rule out ischemia, keep npo HTN- improving Lurdes Rodriguez Aug 15, 2017 07:56
[2017-08-15] MEDS: INSULIN ASPART SUPPLEMENTAL SCALE SQ SCH ×4 (08:00→20:35)
[2017-08-15] MEDS: PANTOPRAZOLE SOD 40 MG DELAYED RELEASE TAB PO SCH (08:32)
[2017-08-15] MEDS: DOCUSATE SODIUM 50 MG/SENNA 8.6 MG TAB PO SCH ×2 (08:32→20:35)
[2017-08-15] MEDS: HYDROCHLOROTHIAZIDE 12.5 MG CAP PO SCH (08:32)
[2017-08-15] MEDS: INSULIN DETEMIR 100 UNITS/ML VIAL SQ SCH ×2 (08:33→20:35)
[2017-08-15] MEDS: SODIUM CHLORIDE 0.9% FLUSH 10 ML FLUSH IV FLUSH SCH ×2 (08:33→20:35)
[2017-08-15] MEDS: SUCRALFATE 1 GM/10 ML CUP PO SCH ×4 (08:35→20:34)
--- NOTE | 2017-08-15 10:49 | HHI.FPPN ---
Subjective Remarks Patient seen and examined by team this morning. She reports shes doing well, feeling better. Still has a "funny feeling" across her abdomen. No pain, no shortness of breath, no chest pain, no nausea, no vomiting or diarrhea. She noticed her leg swelling has improved. She was ready for her stress test this morning. (Hailee Leung MD, R1) Objective Vitals Vital Signs Date Time Temp Pulse Resp B/P (MAP) Pulse Ox O2 Delivery O2 Flow Rate FiO2 08/15/17 10:00 91 08/15/17 09:00 96 08/15/17 08:00 88 08/15/17 07:42 98.5 88 18 146/83 (104) 99 08/15/17 07:00 80 08/15/17 06:00 83 08/15/17 05:00 84 08/15/17 04:00 73 08/15/17 03:00 98.0 84 20 144/78 (100) 97 08/15/17 03:00 81 08/15/17 02:00 85 08/15/17 01:00 96 08/15/17 00:00 100 08/15/17 00:00 162/84 (110) 08/14/17 23:00 90 08/14/17 23:00 98.1 90 20 183/90 (121) 97 08/14/17 22:00 96 08/14/17 21:00 93 08/14/17 20:00 103 08/14/17 19:45 21 08/14/17 19:00 107 08/14/17 19:00 98.4 103 18 174/92 (119) 98 08/14/17 18:45 98.3 108 18 211/109 (143) 99 08/14/17 18:10 08/14/17 18:00 116 08/14/17 18:00 105 20 200/100 (133) 99 Room Air 08/14/17 15:00 98.3 109 20 217/114 (148) 97 Room Air 08/14/17 12:00 98.4 109 20 216/102 (140) 99 Room Air I/O 08/14/17 08/14/17 08/14/17 08/15/17 08/15/17 08/15/17 07:00 15:00 23:00 07:00 15:00 23:00 Intake Total 420 ml Output Total 1300 ml Balance -880 ml Intake Oral 420 ml Output Urine Total 1300 ml # Voids 1 # Bowel Movements 0 (Hailee Leung MD, R1) Result Diagram: 08/14/17 0750 08/14/17 0755 Objective Remarks GENERAL: This is a well-nourished, well-developed patient, in no apparent distress. SKIN: No rashes, ecchymoses or lesions. Cool and dry. HEAD: Atraumatic. Normocephalic. EYES: Pupils equal round and reactive. Extraocular motions intact. No scleral icterus. No injection or drainage. NECK: Trachea midline. No JVD or lymphadenopathy. Supple, nontender, no meningeal signs. CARDIOVASCULAR: Regular rate and rhythm without murmurs, gallops, or rubs. RESPIRATORY: Clear to auscultation. Breath sounds equal bilaterally. No wheezes , rales, or rhonchi. GASTROINTESTINAL: Obese abdomen, soft, non-tender. No guarding or rebound. Unable to fully evaluate for hepato-splenomegaly, or palpable masses. MUSCULOSKELETAL: Extremities without clubbing, cyanosis. Improved LE edema BL. NEUROLOGICAL: AAOx3. Cranial nerves II through XII intact. 5/5 strength on Right extremities (upper and lower). 3/5 strength in Left upper extremity. 4/5 strength in Left lower extremities. Slurred speech. (Hailee Leung MD, R1) A/P Assessment and Plan Patient is a 72-year-old Female with PMHx of DM, HTN and CVA with residual slurred speech who presented to the ED via [facility] after sustaining a fall this morning at home. In the ED, patient was found to have elevated initial troponin of 0.12. Admitted for further w/u. Troponin .21 then .20. Cardiology consulted to r/o ischemic cardiomyopathy. Lexiscan today Attending Attestation Note written by Stephanie Gamez [employer] MS4 Reviewed by Hailee Leung PGY1 (Hailee Leung MD, R1) Attending Attestation Pt. seen and examined with the medicine team. She complains of squeezing pain in the epigastrium and across her upper abdomen. Significant decrease in her LE edema noted with good dorsalis pedis pulses bilaterally. Becomes tearful when Lexiscan is explained to her. Pt. was reassured. Exam findings are as noted above. Patient seen and examined. Case reviewed and discussed with the resident team. Agree with plan of care as discussed with me and documented in the resident note. (Ainsley Phillips MD) Problem List: (1) Elevated troponin ICD Codes: R74.8 - Abnormal levels of other serum enzymes Status: Acute Plan: Patient found to have elevated initial troponin of 0.12, 0.21, 0.20 Denies CP or SOB. EKG normal Cardiology consulted Lexiscan today (2) Hypertension ICD Codes: I10 - Essential (primary) hypertension Status: Chronic Plan: c/w home medication Patients blood pressure high yesterday BP improved today HCTZ 12.5 mg PO Daily Amlodipine 10mg PO daily Hydralazine 75mg Q8hr Clonidine 0.1mg if needed for elevated SBP (3) Fall ICD Codes: W19.XXXA - Unspecified fall, initial encounter Plan: Patient fell on her back this morning of 08/14 after experiencing inability to move her legs. She remained on the floor for 1 hour before EMS arrived at her home. Imaging: CT cervical spine: no acute bony fx. no significant changes compared to her prior study on 07/2016. pelvis XRAY: no acute fx or dislocation. Left shoulder xray: No acute fracture or dislocation, Primary degenerative type changes. Shoulder impingement syndrome. Right shoulder x-ray: Advanced arthritic changes, no acute fractures. CT head: no focal or acute intracranial hemorrhage, no new or nicotine changes compared to the prior study. Abdomen/pelvis CT: No acute intra-abdominal or pelvic pathology, calcified uterine fibroids, cyst left kidney, scattered diverticulosis of descending and sigmoid colon without inflammatory changes CXR: no acute disease Pt placed on bedrest neuro checks Q4h (4) Dysarthria ICD Codes: R47.1 - Dysarthria and anarthria Status: Chronic Plan: Patient with residual slurred speech since her CVA dated to have occurred in November 2016, per EMR review. -speech consulted, appreciate recommendations (5) CVA (cerebral vascular accident) ICD Codes: I63.9 - Cerebral infarction, unspecified Status: Chronic Plan: CVA occurred 6months to 1 yr ago she had residual Left sided weakness that improved with physical therapy. Patient with residual dysarthria Previous imaging: Brain MRI 12/02/16: Subacute left thalamic lacunar infarct. Initial CT head on 12/02/16 was normal however repeat CT head on 12/05/16 showed small lacunar infarct in the left basal ganglia, no acute hemorrhage or mass effect. continue with asa (6) DM (diabetes mellitus) ICD Codes: E11.9 - Type 2 diabetes mellitus without complications Status: Chronic Plan: Levemir 13 units HS ssi low dose Bedside glucose checks hypoglycemia protocol continue to monitor (7) HLD (hyperlipidemia) ICD Codes: E78.5 - Hyperlipidemia, unspecified Status: Chronic Plan: c/w lipitor (8) Nutrition, metabolism, and development symptoms ICD Codes: R63.8 - Other symptoms and signs concerning food and fluid intake Plan: Fluids:not indicated at this time, s/p 1 NS bolus in ED Electrolytes: replete as needed Nutrition: npo pending lexiscan, may resume diabetic diet after procedure DVT ppx: pt on heparin drip (Hailee Leung MD, R1) Problem Qualifiers (1) Fall: Qualified Codes: W19.XXXA - Unspecified fall, initial encounter Hailee Leung MD, R1 Aug 15, 2017 10:49 Ainsley Phillips MD Aug 15, 2017 11:59
[2017-08-15] MEDS ORDERED: REGADENOSON INJ 0.4 MG/5 ML SYR ONE (13:56)
[2017-08-15 19:12] LABS: AUTOMATED NEUTROPHIL # 10.7 TH/MM3 (1.8-7.7); BASOPHIL # 0.1 TH/MM3 (0-0.2); EOSINOPHIL # 0.1 TH/MM3 (0-0.4); EOSINOPHIL % 0.8 % (0.0-4.0); HEMOGLOBIN 9.6 GM/DL (11.6-15.3); LYMPH % 11.6 % (9.0-44.0); LYMPHOCYTE # 1.5 TH/MM3 (1.0-4.8); MEAN CELL VOLUME 78.2 FL (80.0-100.0); MEAN CORPUSCULAR HEMOGLOBIN 25.9 PG (27.0-34.0); MEAN CORPUSCULAR HGB CONC 33.1 % (32.0-36.0); MEAN PLATELET VOLUME 8.9 FL (7.0-11.0); MONO % 4.2 % (0.0-8.0); MONOCYTE # 0.5 TH/MM3 (0-0.9); NEUT % 82.4 % (16.0-70.0); PLATELET COUNT 278 TH/MM3 (150-450); RED BLOOD COUNT 3.71 MIL/MM3 (4.00-5.30); RED CELL DISTRIBUTION WIDTH 15.6 % (11.6-17.2); WHITE BLOOD COUNT 12.9 TH/MM3 (4.0-11.0)
[2017-08-15 19:42] LABS: BICARBONATE 25.7 MEQ/L (21.0-32.0); CALCIUM 8.9 MG/DL (8.5-10.1); CREATININE 1.47 MG/DL (0.50-1.00)
[2017-08-15 19:46] LABS: TROPONIN I 0.15 NG/ML (0.02-0.05)
[2017-08-15] MEDS: ATORVASTATIN 40 MG TAB PO SCH (20:34)
[2017-08-15] MEDS: ACETAMINOPHEN 325 MG TAB PO PRN (20:34)
[2017-08-16] VITALS (29 sets, daily range): BP systolic 92–164; BP diastolic 56–90; PULSE 68–99; RESP 16–20; TEMP 98–100; O2SAT 97–100
[2017-08-16] MEDS: ACETAMINOPHEN 325 MG TAB PO PRN (03:44)
[2017-08-16] MEDS: hydrALAZINE HCL 50 MG TAB PO SCH ×3 (05:07→22:10)
[2017-08-16 05:42] LABS: HEMATOCRIT 27.8 % (35.0-46.0); HEMOGLOBIN 9.1 GM/DL (11.6-15.3); MEAN CELL VOLUME 79.2 FL (80.0-100.0); MEAN CORPUSCULAR HGB CONC 32.8 % (32.0-36.0); MEAN PLATELET VOLUME 8.2 FL (7.0-11.0); PLATELET COUNT 268 TH/MM3 (150-450); RED BLOOD COUNT 3.51 MIL/MM3 (4.00-5.30); RED CELL DISTRIBUTION WIDTH 15.7 % (11.6-17.2); WHITE BLOOD COUNT 12.4 TH/MM3 (4.0-11.0)
[2017-08-16 06:05] LABS: BICARBONATE 28.5 MEQ/L (21.0-32.0); CALCIUM 8.5 MG/DL (8.5-10.1); CREATININE 1.64 MG/DL (0.50-1.00)
[2017-08-16] MEDS: INSULIN DETEMIR 100 UNITS/ML VIAL SQ SCH ×2 (09:01→22:11)
[2017-08-16] MEDS: DOCUSATE SODIUM 50 MG/SENNA 8.6 MG TAB PO SCH ×2 (09:01→22:10)
[2017-08-16] MEDS: PANTOPRAZOLE SOD 40 MG DELAYED RELEASE TAB PO SCH (09:01)
[2017-08-16] MEDS: HYDROCHLOROTHIAZIDE 12.5 MG CAP PO SCH (09:01)
[2017-08-16] MEDS: SODIUM CHLORIDE 0.9% FLUSH 10 ML FLUSH IV FLUSH SCH ×2 (09:02→22:08)
[2017-08-16] MEDS: INSULIN ASPART SUPPLEMENTAL SCALE SQ SCH ×4 (09:08→22:25)
--- NOTE | 2017-08-16 09:35 | HHI.FPPN ---
Subjective Remarks Pt seen and examined this morning. No acute events overnight. Stress test performed yesterday. Complains of continued chronic back pain, otherwise feels back to baseline. Denies any chest pain, SOB, leg pain. Objective Vitals Vital Signs Date Time Temp Pulse Resp B/P (MAP) Pulse Ox O2 Delivery O2 Flow Rate FiO2 08/16/17 06:00 96 08/16/17 05:00 90 08/16/17 04:16 100.0 92 147/60 (89) 98 08/16/17 04:00 88 08/16/17 03:00 87 08/16/17 02:00 98 08/16/17 01:00 86 08/16/17 00:15 99.3 98 163/90 (114) 99 08/16/17 00:00 86 08/15/17 23:00 92 08/15/17 22:00 98 08/15/17 21:00 104 08/15/17 20:46 97 08/15/17 20:00 102 08/15/17 20:00 99.7 100 168/83 (111) 97 08/15/17 19:00 97 08/15/17 18:00 75 08/15/17 17:00 94 08/15/17 16:00 102 08/15/17 15:12 98.3 98 18 140/47 (78) 99 08/15/17 15:00 102 08/15/17 13:00 93 08/15/17 12:00 94 08/15/17 11:45 98.6 97 18 169/94 (119) 99 08/15/17 11:00 90 08/15/17 10:00 91 I/O 08/15/17 08/15/17 08/15/17 08/16/17 08/16/17 08/16/17 07:00 15:00 23:00 07:00 15:00 23:00 Intake Total 420 ml 720 ml 480 ml Output Total 1300 ml 1200 ml 300 ml Balance -880 ml -480 ml 180 ml Intake Oral 420 ml 720 ml 480 ml Output Urine Total 1300 ml 1200 ml 300 ml # Voids 1 2 # Bowel Movements 0 Result Diagram: 08/16/1752108/16/17521 Imaging Last Impressions Head CT 08/14/17 0748 Signed Impressions: Service Date/Time: Thursday, August 14, 2017 10:12 - CONCLUSION: 1. No focal or acute intracranial hemorrhage. 2. Stable bilateral chronic white matter changes. 3. No new or significant changes compared to the prior study. Fer Priest MD Chest X-Ray 08/14/1748 Signed Impressions: Service Date/Time: August 09:40 - CONCLUSION: No acute disease. No significant change has occurred. Fer Priest MD Abdomen/Pelvis CT 08/14/1748 Signed Impressions: Service Date/Time: August 10:22 - CONCLUSION: 1. No acute intra-abdominal/pelvic pathology. 2. Multiple calcified uterine fibroids. 3. 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 4. Scattered diverticulosis of the descending and sigmoid colon without inflammatory changes. Fer Priest MD Shoulder X-Ray 08/14/17 0000 Signed Impressions: Service Date/Time: August 09:41 - CONCLUSION: 1. Advanced arthritic changes within the right shoulder. No acute fracture identified. Matt Newman MD Pelvis X-Ray 08/14/17 Signed Impressions: Service Date/Time: August 09:38 - CONCLUSION: 1. No acute fracture or dislocation. Sohail Berger MD Cervical Spine CT 08/14/17 0000 Signed Impressions: Service Date/Time: August 10:12 - CONCLUSION: 1. No acute bony fracture. 2. Stable primary bony degenerative changes, disc degeneration and disc space narrowing at C5-6 and C6-7. 3. No new or significant changes compared to patient's recent prior study of 07/21/2016. Fer Priest MD Objective Remarks GENERAL: This is a well-nourished, well-developed patient, in no apparent distress. SKIN: No rashes, ecchymoses or lesions. Cool and dry. CARDIOVASCULAR: Regular rate and rhythm without murmurs, gallops, or rubs. RESPIRATORY: Clear to auscultation. Breath sounds equal bilaterally. No wheezes , rales, or rhonchi. GASTROINTESTINAL: Obese abdomen, soft, non-tender. MUSCULOSKELETAL: Extremities without clubbing, cyanosis. Improved LE edema BL. NEUROLOGICAL: AAOx3. 5/5 strength on Right extremities (upper and lower). 3/5 strength in Left upper extremity. 4/5 strength in Left lower extremities. Slurred speech. A/P Assessment and Plan Patient is a 72-year-old Female with PMHx of DM, HTN and CVA with residual slurred speech who presented to the ED via [facility] after sustaining a fall this morning at home. In the ED, patient was found to have elevated initial troponin of 0.12. Admitted for further w/u. Troponin .21 then .20. Cardiology consulted to r/o ischemic cardiomyopathy. Lexiscan today Discharge Planning possibly tomorrow pending cardiology clearance and placement to rehab Problem List: (1) Elevated troponin ICD Codes: R74.8 - Abnormal levels of other serum enzymes Status: Acute Plan: Patient found to have elevated initial troponin of 0.12, 0.21, 0.20 Denies CP or SOB. EKG w/o ST changes. Stable -On heparin gtt -Cardiology consulted-appreciate recs -Lexiscan yesterday, await results (2) Hypertension ICD Codes: I10 - Essential (primary) hypertension Status: Chronic Plan: c/w home medication Patients blood pressure high yesterday BP improved today HCTZ 12.5 mg PO Daily Amlodipine 10mg PO daily Hydralazine 75mg Q8hr Clonidine 0.1mg if needed for elevated SBP (3) Fall ICD Codes: W19.XXXA - Unspecified fall, initial encounter Plan: Patient fell on her back this morning of 08/14 after experiencing inability to move her legs. She remained on the floor for 1 hour before EMS arrived at her home. Imaging: CT cervical spine: no acute bony fx. no significant changes compared to her prior study on 07/2016. pelvis XRAY: no acute fx or dislocation. Left shoulder xray: No acute fracture or dislocation, Primary degenerative type changes. Shoulder impingement syndrome. Right shoulder x-ray: Advanced arthritic changes, no acute fractures. CT head: no focal or acute intracranial hemorrhage, no new or nicotine changes compared to the prior study. Abdomen/pelvis CT: No acute intra-abdominal or pelvic pathology, calcified uterine fibroids, cyst left kidney, scattered diverticulosis of descending and sigmoid colon without inflammatory changes CXR: no acute disease -Pt placed on bedrest -neuro checks Q4h PT--> recommends PT at rehab (4) Dysarthria ICD Codes: R47.1 - Dysarthria and anarthria Status: Chronic Plan: Patient with residual slurred speech since her CVA dated to have occurred in November 2016, per EMR review. -speech consulted-continue with thin liquid and mechanical soft diet (5) CVA (cerebral vascular accident) ICD Codes: I63.9 - Cerebral infarction, unspecified Status: Chronic Plan: CVA occurred 6months to 1 yr ago she had residual Left sided weakness that improved with physical therapy. Patient with residual dysarthria Previous imaging: Brain MRI 12/02/16: Subacute left thalamic lacunar infarct. Initial CT head on 12/02/16 was normal however repeat CT head on 12/05/16 showed small lacunar infarct in the left basal ganglia, no acute hemorrhage or mass effect. continue with asa (6) DM (diabetes mellitus) ICD Codes: E11.9 - Type 2 diabetes mellitus without complications Status: Chronic Plan: Levemir 13 units HS ssi low dose Bedside glucose checks hypoglycemia protocol continue to monitor (7) HLD (hyperlipidemia) ICD Codes: E78.5 - Hyperlipidemia, unspecified Status: Chronic Plan: c/w lipitor (8) Nutrition, metabolism, and development symptoms ICD Codes: R63.8 - Other symptoms and signs concerning food and fluid intake Plan: Fluids: tolerating PO Electrolytes: replete as needed Nutrition: diabetic diet DVT ppx: pt on heparin drip Problem Qualifiers (1) Fall: Qualified Codes: W19.XXXA - Unspecified fall, initial encounter Delio Austin MD Aug 16, 2017 09:35
[2017-08-16] MEDS: SUCRALFATE 1 GM/10 ML CUP PO SCH ×3 (12:43→22:08)
--- NOTE | 2017-08-16 12:48 | RADRPT ---
EXAM DATE/TIME: 08/15/2017 14:20 [facility] COMPARISON: MYOCARDIAL PERF PHARM SPECT, GATED W/EF, June 04, 2016, 13:18. INDICATIONS : Syncope with elevated troponins. Coronary artery disease. DOSE: 30.7 mCi Tc99m Myoview at stress. 30.1 mCi Tc99m Myoview at rest. 0.4 mg Lexiscan STRESS SYMPTOMS: Nausea. EJECTION FRACTION: > 70% MEDICAL HISTORY : Hypertension. Diabetes mellitus type 2. SURGICAL HISTORY : None. ENCOUNTER: Initial ACUITY: 2 days PAIN SCALE: 0/10 LOCATION: Chest. TECHNIQUE: The patient underwent pharmacologic stress with infusion of prescribed dose. Continuous ECG tracing was monitored during stress. Gated SPECT imaging was performed after stress and conventional SPECT i maging was performed at rest. The examination was performed on a SPECT/CT scanner, both attenuation and non-corrected datasets were reviewed. FINDINGS: DISTRIBUTION: The maximum perfused segment at stress is in the inferior wall. PERFUSION STUDY: Moderate-sized moderate severity reversible perfusion defect is seen at the superior aspect of the se ptal wall. This finding is not seen on the prior study of 2015. GATED STUDY: There is intact wall motion and thickening without hypokinetic or dyskinetic segments. CONCLUSION: Moderate-sized reversible perfusion defect of the septal wall indicating possible ischemic segment. N o focal wall motion abnormality identified. RISK CATEGORY: 2- Intermediate Risk. Mal Castano MD on August 16, 2017 at 12:41 Board Certified Radiologist. This report was verified electronically.
--- NOTE | 2017-08-16 15:06 | PD.CARD.PN ---
Objective Medications Current Medications Medications (Trade) Dose Ordered Sig/Tresa Route Start Time Stop Time Status Last Admin (Heparin Inj) 5,000 units UNSCH PRN IV PUSH 08/14/17 16:45 (Heparin Inj) 2,500 units UNSCH PRN IV PUSH 08/14/17 16:45 08/16/17 07:45 Heparin Sodium/ Dextrose 250 ml @ 10 mls/hr TITRATE PRN IV 08/14/17 10:45 08/14/17 20:31 (Lipitor) 40 mg HS PO 08/14/17 21:00 08/15/17 20:34 (Apresoline) 75 mg Q8HR PO 08/14/17 14:00 08/16/17 05:07 (Microzide) 12.5 mg DAILY PO 08/15/17 09:00 08/16/17 09:01 (Protonix) 40 mg DAILY PO 08/15/17 09:00 08/16/17 09:01 (Carafate Liq) 1 gm ACHS PO 08/14/17 12:00 08/16/17 12:43 (NS Flush) 2 ml UNSCH PRN IV FLUSH 08/14/17 12:00 (NS Flush) 2 ml BID IV FLUSH 08/14/17 21:00 08/16/17 09:02 (Tylenol) 650 mg Q4H PRN PO 08/14/17 12:00 08/16/17 03:44 (Narcan Inj) 0.4 mg UNSCH PRN IV PUSH 08/14/17 12:00 (Barbie-Colace) 1 tab BID PO 08/14/17 21:00 08/16/17 09:01 (Milk Of Magnesia Liq) 30 ml Q12H PRN PO 08/14/17 12:00 (Senokot) 17.2 mg Q12H PRN PO 08/14/17 12:00 (Dulcolax Supp) 10 mg DAILY PRN RECTAL 08/14/17 12:00 (Lactulose Liq) 30 ml DAILY PRN PO 08/14/17 12:00 (Pill Splitter) 1 ea UNSCH PRN OTHER 08/14/17 12:15 (Levemir Inj) 13 units Q12HR SQ 08/14/17 21:00 08/16/17 09:01 (D50w (Vial) Inj) 50 ml UNSCH PRN IV PUSH 08/14/17 12:15 (Glucagon Inj) 1 mg UNSCH PRN OTHER 08/14/17 12:15 (NovoLOG SUPPLEMENTAL SCALE) 1 ACHS SLIDING SCALE SQ 08/14/17 17:00 08/16/17 12:43 (Norvasc) 10 mg DAILY PO 08/14/17 17:00 08/16/17 09:01 (Catapres) 0.1 mg Q6H PRN PO 08/14/17 17:00 08/15/17 00:22 Vital Signs / I&O Vital Signs Date Time Temp Pulse Resp B/P (MAP) Pulse Ox O2 Delivery O2 Flow Rate FiO2 08/16/17 11:42 98.0 90 20 164/76 (105) 97 08/16/17 11:42 90 08/16/17 09:33 98 21 08/16/17 07:30 91 08/16/17 06:00 96 08/16/17 05:00 90 08/16/17 04:16 100.0 92 147/60 (89) 98 08/16/17 04:00 88 08/16/17 03:00 87 08/16/17 02:00 98 08/16/17 01:00 86 08/16/17 00:15 99.3 98 163/90 (114) 99 08/16/17 00:00 86 08/15/17 23:00 92 08/15/17 22:00 98 08/15/17 21:00 104 08/15/17 20:46 97 08/15/17 20:00 102 08/15/17 20:00 99.7 100 168/83 (111) 97 08/15/17 19:00 97 08/15/17 18:00 75 08/15/17 17:00 94 08/15/17 16:00 102 08/15/17 15:12 98.3 98 18 140/47 (78) 99 08/15/17 15:00 102 I/O 08/15/17 08/15/17 08/15/17 08/16/17 08/16/17 08/16/17 07:00 15:00 23:00 07:00 15:00 23:00 Intake Total 420 ml 720 ml 480 ml Output Total 1300 ml 1200 ml 300 ml Balance -880 ml -480 ml 180 ml Intake Oral 420 ml 720 ml 480 ml Output Urine Total 1300 ml 1200 ml 300 ml # Voids 1 2 # Bowel Movements 0 Physical Exam GENERAL: AAO, comfortable SKIN: Warm and dry. HEAD: Atraumatic. Normocephalic. EYES: Pupils equal and round. ENT: No nasal bleeding or discharge. Mucous membranes pink and moist. NECK: Trachea midline. No JVD. CARDIOVASCULAR: Regular rate and rhythm. no murmurs RESPIRATORY: No accessory muscle use. Clear to auscultation. Breath sounds equal bilaterally. GASTROINTESTINAL: Abdomen soft, non-tender, nondistended. Hepatic and splenic margins not palpable. MUSCULOSKELETAL: Extremities without clubbing, cyanosis, or edema. No obvious deformities. NEUROLOGICAL: Awake and alert. No obvious cranial nerve deficits. Normal speech. PSYCHIATRIC: Appropriate mood and affect; insight and judgment normal. Laboratory Laboratory Tests Test 08/15/17 18:29 08/16/17 05:22 08/16/17 12:12 White Blood Count 12.9 TH/MM3 12.4 TH/MM3 Red Blood Count 3.71 MIL/MM3 3.51 MIL/MM3 Hemoglobin 9.6 GM/DL 9.1 GM/DL Hematocrit 29.0 % 27.8 % Mean Corpuscular Volume 78.2 FL 79.2 FL Mean Corpuscular Hemoglobin 25.9 PG 26.0 PG Mean Corpuscular Hemoglobin Concent 33.1 % 32.8 % Red Cell Distribution Width 15.6 % 15.7 % Platelet Count 278 TH/MM3 268 TH/MM3 Mean Platelet Volume 8.9 FL 8.2 FL Neutrophils (%) (Auto) 82.4 % Lymphocytes (%) (Auto) 11.6 % Monocytes (%) (Auto) 4.2 % Eosinophils (%) (Auto) 0.8 % Basophils (%) (Auto) 1.0 % Neutrophils # (Auto) 10.7 TH/MM3 Lymphocytes # (Auto) 1.5 TH/MM3 Monocytes # (Auto) 0.5 TH/MM3 Eosinophils # (Auto) 0.1 TH/MM3 Basophils # (Auto) 0.1 TH/MM3 CBC Comment DIFF FINAL Differential Comment Blood Urea Nitrogen 21 MG/DL 26 MG/DL Creatinine 1.47 MG/DL 1.64 MG/DL Random Glucose 154 MG/DL 168 MG/DL Calcium Level 8.9 MG/DL 8.5 MG/DL Sodium Level 139 MEQ/L 139 MEQ/L Potassium Level 3.6 MEQ/L 3.6 MEQ/L Chloride Level 104 MEQ/L 104 MEQ/L Carbon Dioxide Level 25.7 MEQ/L 28.5 MEQ/L Anion Gap 9 MEQ/L 7 MEQ/L Estimat Glomerular Filtration Rate 42 ML/MIN 37 ML/MIN Troponin I 0.15 NG/ML Activated Partial Thromboplast Time 38.7 SEC 47.3 SEC Assessment and Plan Problem List: (1) HTN (hypertension) ICD Codes: I10 - Essential (primary) hypertension Status: Acute (2) Elevated troponin ICD Codes: R74.8 - Abnormal levels of other serum enzymes Status: Acute (3) Non-ST elevated myocardial infarction ICD Codes: I21.4 - Non-ST elevation (NSTEMI) myocardial infarction Assessment and Plan This is a 72 yo AAF with no prior cardiac history with diabetes, prior CVA in 2017 and HTN who presented after a fall at home yesterday. She describes trying to get up and walk but her legs "wouldn't move" and she fell back; no LOC, syncope or head injury. Upon presentation to the ED her SBP was elevated as high as 216. Troponins also have been trending upwards from 0.12 to 0.20 overnight. ECG shows no concerning ST segment or T wave changes. Echo in 2017 noted to have normal EF 1. NSTEMI, elevated troponin- Nuclear stress test 08/15/17 showed Moderate-sized reversible perfusion defect of the septal wall indicating possible ischemic segment. No focal wall motion abnormality identified. ' No active chest pain Will rep\\eat troponin Will continue IV Heparin. Add Aspirin. Continue Statin. will add Metoprolol 50 mg BID Tentatively [facility] Friday. 2. HTN- improving Will add Metoprolol for better BP control Dr. Kevin covers for Dr. Abhay Fabian 08/16 to 08/17 Wing Codie Kevin MD Aug 16, 2017 15:06
[2017-08-16] MEDS ORDERED: ASPIRIN EC 325 MG TABEC PO ONE (15:30)
[2017-08-16] MEDS: HEPARIN-D5W 25,000 U/250 ML 250 ML IV PRN (17:56)
[2017-08-16] MEDS: ATORVASTATIN 40 MG TAB PO SCH (22:09)
[2017-08-16] MEDS: METOPROLOL TARTRATE 50 MG TAB PO SCH (22:10)
[2017-08-17] VITALS (20 sets, daily range): BP systolic 119–147; BP diastolic 50–94; PULSE 64–86; RESP 16–18; TEMP 97.8–99; O2SAT 96–99
[2017-08-17] MEDS: hydrALAZINE HCL 50 MG TAB PO SCH ×3 (05:00→21:48)
[2017-08-17 06:07] LABS: HEMATOCRIT 27.4 % (35.0-46.0); HEMOGLOBIN 9.1 GM/DL (11.6-15.3); MEAN CELL VOLUME 78.8 FL (80.0-100.0); MEAN CORPUSCULAR HEMOGLOBIN 26.1 PG (27.0-34.0); MEAN CORPUSCULAR HGB CONC 33.1 % (32.0-36.0); MEAN PLATELET VOLUME 8.7 FL (7.0-11.0); PLATELET COUNT 270 TH/MM3 (150-450); RED BLOOD COUNT 3.47 MIL/MM3 (4.00-5.30); RED CELL DISTRIBUTION WIDTH 15.6 % (11.6-17.2); WHITE BLOOD COUNT 9.6 TH/MM3 (4.0-11.0)
[2017-08-17 06:29] LABS: BICARBONATE 26.3 MEQ/L (21.0-32.0); CALCIUM 8.7 MG/DL (8.5-10.1); CREATININE 1.69 MG/DL (0.50-1.00)
[2017-08-17] MEDS: INSULIN DETEMIR 100 UNITS/ML VIAL SQ SCH ×2 (09:17→21:48)
[2017-08-17] MEDS: ASPIRIN EC 325 MG TABEC PO SCH (09:18)
[2017-08-17] MEDS: INSULIN ASPART SUPPLEMENTAL SCALE SQ SCH ×4 (09:18→21:49)
[2017-08-17] MEDS: DOCUSATE SODIUM 50 MG/SENNA 8.6 MG TAB PO SCH ×2 (09:18→21:47)
[2017-08-17] MEDS: METOPROLOL TARTRATE 50 MG TAB PO SCH ×2 (09:18→21:48)
[2017-08-17] MEDS: PANTOPRAZOLE SOD 40 MG DELAYED RELEASE TAB PO SCH (09:18)
[2017-08-17] MEDS: HYDROCHLOROTHIAZIDE 12.5 MG CAP PO SCH (09:19)
[2017-08-17] MEDS: SUCRALFATE 1 GM/10 ML CUP PO SCH ×4 (09:19→21:47)
[2017-08-17] MEDS: SODIUM CHLORIDE 0.9% FLUSH 10 ML FLUSH IV FLUSH SCH ×2 (09:19→21:48)
--- NOTE | 2017-08-17 10:29 | HHI.FPPN ---
Subjective Remarks Patient seen and examined at bedside this morning. NO acute events overnight. Patient stated she feels well. Denies CP, SOB or abdominal pain. Patient is eating well. She stated she has not had a BM since before her admission. (Hailee Leung MD, R1) Objective Vitals Vital Signs Date Time Temp Pulse Resp B/P (MAP) Pulse Ox O2 Delivery O2 Flow Rate FiO2 08/17/17 09:06 98 21 08/17/17 06:00 70 08/17/17 05:10 99.0 85 16 119/68 (85) 99 08/17/17 05:00 70 08/17/17 04:00 78 08/17/17 02:00 78 08/17/17 01:00 68 08/17/17 00:00 64 08/16/17 23:00 98.9 72 16 92/56 (68) 100 08/16/17 23:00 68 08/16/17 22:00 84 08/16/17 21:00 86 08/16/17 20:29 98.9 89 16 148/74 (98) 99 08/16/17 20:00 90 08/16/17 19:38 99 21 08/16/17 19:00 98 08/16/17 18:00 98 08/16/17 17:05 92 08/16/17 17:05 99.3 92 20 145/81 (102) 98 08/16/17 16:00 86 08/16/17 15:00 88 08/16/17 14:00 86 08/16/17 13:00 98 08/16/17 11:42 98.0 90 20 164/76 (105) 97 08/16/17 11:42 90 08/16/17 11:00 90 I/O 08/16/17 08/16/17 08/16/17 08/17/17 08/17/17 08/17/17 07:00 15:00 23:00 07:00 15:00 23:00 Intake Total 480 ml 913 ml 480 ml Output Total 300 ml Balance 180 ml 913 ml 480 ml Intake Oral 480 ml 780 ml 480 ml IV Total 133 ml Output Urine Total 300 ml # Voids 2 3 2 # Bowel Movements 0 0 (Hailee Leung MD, R1) Result Diagram: 08/17/1752008/17/17520 Imaging Last Impressions Myocardial Perfusion Scan Nuc Med 08/15/17 Signed Impressions: Service Date/Time: Tuesday, August 15, 2017 14:20 - CONCLUSION: Moderate-sized reversible perfusion defect of the septal wall indicating possible ischemic segment. No focal wall motion abnormality identified. RISK CATEGORY: 2- Intermediate Risk. Mal Castano MD Head CT 08/14/1748 Signed Impressions: Service Date/Time: August 10:12 - CONCLUSION: 1. No focal or acute intracranial hemorrhage. 2. Stable bilateral chronic white matter changes. 3. No new or significant changes compared to the prior study. Fer Priest MD Chest X-Ray 08/14/17747 Signed Impressions: Service Date/Time: August 09:40 - CONCLUSION: No acute disease. No significant change has occurred. Fer Priest MD Abdomen/Pelvis CT 08/14/17747 Signed Impressions: Service Date/Time: August 10:22 - CONCLUSION: 1. No acute intra-abdominal/pelvic pathology. 2. Multiple calcified uterine fibroids. 3. 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 4. Scattered diverticulosis of the descending and sigmoid colon without inflammatory changes. Fer Priest MD Shoulder X-Ray 08/14/17 Signed Impressions: Service Date/Time: August 09:41 - CONCLUSION: 1. Advanced arthritic changes within the right shoulder. No acute fracture identified. Matt Newman MD Pelvis X-Ray 08/14/17 Signed Impressions: Service Date/Time: August 09:38 - CONCLUSION: 1. No acute fracture or dislocation. Sohail Berger MD Cervical Spine CT 08/14/17 Signed Impressions: Service Date/Time: August 10:12 - CONCLUSION: 1. No acute bony fracture. 2. Stable primary bony degenerative changes, disc degeneration and disc space narrowing at C5-6 and C6-7. 3. No new or significant changes compared to patient's recent prior study of 07/21/2016. Fer Priest MD Objective Remarks GENERAL: This is a well-nourished, well-developed patient, in no apparent distress. SKIN: No rashes, ecchymoses or lesions. Cool and dry. CARDIOVASCULAR: Regular rate and rhythm without murmurs, gallops, or rubs. RESPIRATORY: Clear to auscultation. Breath sounds equal bilaterally. No wheezes , rales, or rhonchi. GASTROINTESTINAL: Obese abdomen, soft, non-tender. MUSCULOSKELETAL: Extremities without clubbing, cyanosis. Improved LE edema BL. NEUROLOGICAL: AAOx3. 5/5 strength on Right extremities (upper and lower). 3/5 strength in Left upper extremity. 4/5 strength in Left lower extremities. Slurred speech. (Hailee Leung MD, R1) A/P Assessment and Plan Patient is a 72-year-old Female with PMHx of DM, HTN and CVA with residual slurred speech who presented to the ED via [facility] after sustaining a fall this morning at home. In the ED, patient was found to have elevated initial troponin of 0.12. Admitted for further w/u. Troponin .21 then .20. Cardiology consulted to r/o ischemic cardiomyopathy. Lexiscan 08/15. Cardiac cath tomorrow Discharge Planning pending cardiology clearance and placement to rehab (Hailee Leung MD, R1) Attending Attestation Patient seen and examined. Case reviewed and discussed with the resident team. Agree with plan of care as discussed with me and documented in the resident note. (Ainsley Phillips MD) Problem List: (1) Non-ST elevated myocardial infarction ICD Codes: I21.4 - Non-ST elevation (NSTEMI) myocardial infarction Status: Acute Plan: Patient found to have elevated initial troponin of 0.12, 0.21, 0.20 Denies CP or SOB. EKG w/o ST changes. Stable -On heparin gtt -Cardiology consulted-appreciate recs -Lexiscan 08/15. Myocardial perfusion scan: Moderate size reversible perfusion defect on the septal wall indicating possible ischemic segment. No focal wall motion abnormalities identified. - Cardiac cath possibly tomorrow - yesterday patient started on asa 325mg QD and metoprolol 50mg BID (2) Elevated troponin ICD Codes: R74.8 - Abnormal levels of other serum enzymes Status: Acute Plan: Patient found to have elevated initial troponin of 0.12, 0.21, 0.20 Denies CP or SOB. EKG w/o ST changes. Stable -On heparin gtt see plan above (3) Hypertension ICD Codes: I10 - Essential (primary) hypertension Status: Chronic Plan: c/w home medication BP improved today HCTZ 12.5 mg PO Daily Amlodipine 10mg PO daily Hydralazine 75mg Q8hr metoprolol 50 Q12hr added yesterday for better BP control Clonidine 0.1mg if needed for elevated SBP (4) Fall ICD Codes: W19.XXXA - Unspecified fall, initial encounter Plan: Patient fell on her back this morning of 08/14 after experiencing inability to move her legs. She remained on the floor for 1 hour before EMS arrived at her home. Imaging: CT cervical spine: no acute bony fx. no significant changes compared to her prior study on 07/2016. pelvis XRAY: no acute fx or dislocation. Left shoulder xray: No acute fracture or dislocation, Primary degenerative type changes. Shoulder impingement syndrome. Right shoulder x-ray: Advanced arthritic changes, no acute fractures. CT head: no focal or acute intracranial hemorrhage, no new or nicotine changes compared to the prior study. Abdomen/pelvis CT: No acute intra-abdominal or pelvic pathology, calcified uterine fibroids, cyst left kidney, scattered diverticulosis of descending and sigmoid colon without inflammatory changes CXR: no acute disease -Pt placed on bedrest -neuro checks Q4h PT--> recommends PT at rehab (5) Dysarthria ICD Codes: R47.1 - Dysarthria and anarthria Status: Chronic Plan: Patient with residual slurred speech since her CVA dated to have occurred in November 2016, per EMR review. -speech consulted-continue with thin liquid and mechanical soft diet (6) CVA (cerebral vascular accident) ICD Codes: I63.9 - Cerebral infarction, unspecified Status: Chronic Plan: CVA occurred 6months to 1 yr ago she had residual Left sided weakness that improved with physical therapy. Patient with residual dysarthria Previous imaging: Brain MRI 12/02/16: Subacute left thalamic lacunar infarct. Initial CT head on 12/02/16 was normal however repeat CT head on 12/05/16 showed small lacunar infarct in the left basal ganglia, no acute hemorrhage or mass effect. continue with asa (7) DM (diabetes mellitus) ICD Codes: E11.9 - Type 2 diabetes mellitus without complications Status: Chronic Plan: increased to : Levemir 15 units HS ssi low dose Bedside glucose checks hypoglycemia protocol continue to monitor (8) HLD (hyperlipidemia) ICD Codes: E78.5 - Hyperlipidemia, unspecified Status: Chronic Plan: c/w lipitor (9) Constipation ICD Codes: K59.00 - Constipation, unspecified Status: Acute Plan: c/w constipation per protocol milk of magnesia given x1 (10) Nutrition, metabolism, and development symptoms ICD Codes: R63.8 - Other symptoms and signs concerning food and fluid intake Plan: Fluids: tolerating PO Electrolytes: replete as needed Nutrition: diabetic diet DVT ppx: pt on heparin drip (Hailee Leung MD, R1) Problem Qualifiers (1) Fall: Qualified Codes: W19.XXXA - Unspecified fall, initial encounter Hailee Leung MD, R1 Aug 17, 2017 10:29 Ainsley Phillips MD Aug 17, 2017 18:43
[2017-08-17] MEDS ORDERED: MAGNESIUM HYDROXIDE SUSP 30 ML CUP PO PRN (11:00)
[2017-08-17] MEDS ORDERED: MAGNESIUM HYDROXIDE SUSP 30 ML CUP PO ONE (11:00)
--- NOTE | 2017-08-17 11:28 | PD.CARD.PN ---
Subjective Subjective Remarks Sitting up in Chair, no chest pain, but neck pain Talking on phone to her daughter who is in [place]. Objective Medications Current Medications Medications (Trade) Dose Ordered Sig/Tresa Route Start Time Stop Time Status Last Admin (Heparin Inj) 5,000 units UNSCH PRN IV PUSH 08/14/17 16:45 (Heparin Inj) 2,500 units UNSCH PRN IV PUSH 08/14/17 16:45 08/16/17 07:45 Heparin Sodium/ Dextrose 250 ml @ 10 mls/hr TITRATE PRN IV 08/14/17 10:45 08/16/17 17:56 (Lipitor) 40 mg HS PO 08/14/17 21:00 08/16/17 22:09 (Apresoline) 75 mg Q8HR PO 08/14/17 14:00 08/17/17 05:00 (Microzide) 12.5 mg DAILY PO 08/15/17 09:00 08/17/17 09:19 (Protonix) 40 mg DAILY PO 08/15/17 09:00 08/17/17 09:18 (Carafate Liq) 1 gm ACHS PO 08/14/17 12:00 08/17/17 09:19 (NS Flush) 2 ml UNSCH PRN IV FLUSH 08/14/17 12:00 (NS Flush) 2 ml BID IV FLUSH 08/14/17 21:00 08/17/17 09:19 (Tylenol) 650 mg Q4H PRN PO 08/14/17 12:00 08/16/17 03:44 (Narcan Inj) 0.4 mg UNSCH PRN IV PUSH 08/14/17 12:00 (Barbie-Colace) 1 tab BID PO 08/14/17 21:00 08/17/17 09:18 (Milk Of Magnesia Liq) 30 ml Q12H PRN PO 08/14/17 12:00 (Senokot) 17.2 mg Q12H PRN PO 08/14/17 12:00 (Dulcolax Supp) 10 mg DAILY PRN RECTAL 08/14/17 12:00 (Lactulose Liq) 30 ml DAILY PRN PO 08/14/17 12:00 (Pill Splitter) 1 ea UNSCH PRN OTHER 08/14/17 12:15 (Levemir Inj) 13 units Q12HR SQ 08/14/17 21:00 08/17/17 09:17 (D50w (Vial) Inj) 50 ml UNSCH PRN IV PUSH 08/14/17 12:15 (Glucagon Inj) 1 mg UNSCH PRN OTHER 08/14/17 12:15 (NovoLOG SUPPLEMENTAL SCALE) 1 ACHS SLIDING SCALE SQ 08/14/17 17:00 08/17/17 09:18 (Norvasc) 10 mg DAILY PO 08/14/17 17:00 08/17/17 09:18 (Catapres) 0.1 mg Q6H PRN PO 08/14/17 17:00 08/15/17 00:22 (Ecotrin Ec) 325 mg DAILY PO 08/17/17 09:00 08/17/17 09:18 (Lopressor) 50 mg Q12HR PO 08/16/17 21:00 08/17/17 09:18 (Milk Of Magnesia Liq) 30 ml DAILY PRN PO 08/17/17 11:00 Vital Signs / I&O Vital Signs Date Time Temp Pulse Resp B/P (MAP) Pulse Ox O2 Delivery O2 Flow Rate FiO2 08/17/17 09:06 98 21 08/17/17 06:00 70 08/17/17 05:10 99.0 85 16 119/68 (85) 99 08/17/17 05:00 70 08/17/17 04:00 78 08/17/17 02:00 78 08/17/17 01:00 68 08/17/17 00:00 64 08/16/17 23:00 98.9 72 16 92/56 (68) 100 08/16/17 23:00 68 08/16/17 22:00 84 08/16/17 21:00 86 08/16/17 20:29 98.9 89 16 148/74 (98) 99 08/16/17 20:00 90 08/16/17 19:38 99 21 08/16/17 19:00 98 08/16/17 18:00 98 08/16/17 17:05 92 08/16/17 17:05 99.3 92 20 145/81 (102) 98 08/16/17 16:00 86 08/16/17 15:00 88 08/16/17 14:00 86 08/16/17 13:00 98 08/16/17 11:42 98.0 90 20 164/76 (105) 97 08/16/17 11:42 90 I/O 08/16/17 08/16/17 08/16/17 08/17/17 08/17/17 08/17/17 07:00 15:00 23:00 07:00 15:00 23:00 Intake Total 480 ml 913 ml 480 ml Output Total 300 ml Balance 180 ml 913 ml 480 ml Intake Oral 480 ml 780 ml 480 ml IV Total 133 ml Output Urine Total 300 ml # Voids 2 3 2 # Bowel Movements 0 0 Physical Exam GENERAL: AAO, comfortable SKIN: Warm and dry. HEAD: Atraumatic. Normocephalic. EYES: Pupils equal and round. ENT: No nasal bleeding or discharge. Mucous membranes pink and moist. NECK: Trachea midline. No JVD. CARDIOVASCULAR: Regular rate and rhythm. no murmurs RESPIRATORY: No accessory muscle use. Clear to auscultation. Breath sounds equal bilaterally. GASTROINTESTINAL: Abdomen soft, non-tender, nondistended. Hepatic and splenic margins not palpable. MUSCULOSKELETAL: Extremities without clubbing, cyanosis, or edema. No obvious deformities. NEUROLOGICAL: Awake and alert. No obvious cranial nerve deficits. Normal speech. PSYCHIATRIC: Appropriate mood and affect; insight and judgment normal. Laboratory Laboratory Tests Test 08/16/17 12:12 08/16/17 18:32 08/17/17 05:21 Activated Partial Thromboplast Time 47.3 SEC 42.3 SEC 42.1 SEC White Blood Count 9.6 TH/MM3 Red Blood Count 3.47 MIL/MM3 Hemoglobin 9.1 GM/DL Hematocrit 27.4 % Mean Corpuscular Volume 78.8 FL Mean Corpuscular Hemoglobin 26.1 PG Mean Corpuscular Hemoglobin Concent 33.1 % Red Cell Distribution Width 15.6 % Platelet Count 270 TH/MM3 Mean Platelet Volume 8.7 FL Blood Urea Nitrogen 34 MG/DL Creatinine 1.69 MG/DL Random Glucose 180 MG/DL Calcium Level 8.7 MG/DL Sodium Level 138 MEQ/L Potassium Level 3.4 MEQ/L Chloride Level 103 MEQ/L Carbon Dioxide Level 26.3 MEQ/L Anion Gap 9 MEQ/L Estimat Glomerular Filtration Rate 36 ML/MIN Assessment and Plan Problem List: (1) HTN (hypertension) ICD Codes: I10 - Essential (primary) hypertension Status: Acute (2) Elevated troponin ICD Codes: R74.8 - Abnormal levels of other serum enzymes Status: Acute (3) Non-ST elevated myocardial infarction ICD Codes: I21.4 - Non-ST elevation (NSTEMI) myocardial infarction Assessment and Plan This is a 72 yo AAF with no prior cardiac history with diabetes, prior CVA in 2017 and HTN who presented after a fall at home yesterday. She describes trying to get up and walk but her legs "wouldn't move" and she fell back; no LOC, syncope or head injury. Upon presentation to the ED her SBP was elevated as high as 216. Troponins also have been trending upwards from 0.12 to 0.20 overnight. ECG shows no concerning ST segment or T wave changes. Echo in 2017 noted to have normal EF 1. NSTEMI, elevated troponin- Nuclear stress test 08/15/17 showed Moderate-sized reversible perfusion defect of the septal wall indicating possible ischemic segment. No focal wall motion abnormality identified. ' No active chest pain Will rep\\eat troponin Will continue IV Heparin. Add Aspirin. Continue Statin. will add Metoprolol 50 mg BID Tentatively [facility] Friday AM with Dr. Fabian Will Keep NPO after midnight 2. HTN- improving Will add Metoprolol for better BP control Dr. Kevin covers for Dr. Abhay Fabian 08/16 to 08/17 Wing Codie Kevin MD Aug 17, 2017 11:28
[2017-08-17] MEDS: ATORVASTATIN 40 MG TAB PO SCH (21:48)
[2017-08-17] MEDS: HEPARIN-D5W 25,000 U/250 ML 250 ML IV PRN (21:52)
[2017-08-18] VITALS (22 sets, daily range): BP systolic 147–165; BP diastolic 70–86; PULSE 14–100; RESP 16–18; TEMP 97.7–98.8; O2SAT 94–99
[2017-08-18] MEDS: hydrALAZINE HCL 50 MG TAB PO SCH ×3 (06:00→22:53)
[2017-08-18 06:16] LABS: AUTOMATED NEUTROPHIL # 5.8 TH/MM3 (1.8-7.7); BASOPHIL % 0.4 % (0.0-2.0); EOSINOPHIL # 0.6 TH/MM3 (0-0.4); EOSINOPHIL % 6.9 % (0.0-4.0); HEMATOCRIT 28.2 % (35.0-46.0); HEMOGLOBIN 9.1 GM/DL (11.6-15.3); LYMPH % 17.4 % (9.0-44.0); LYMPHOCYTE # 1.5 TH/MM3 (1.0-4.8); MEAN CELL VOLUME 79.6 FL (80.0-100.0); MEAN CORPUSCULAR HEMOGLOBIN 25.8 PG (27.0-34.0); MEAN CORPUSCULAR HGB CONC 32.5 % (32.0-36.0); MEAN PLATELET VOLUME 8.6 FL (7.0-11.0); MONO % 8.3 % (0.0-8.0); MONOCYTE # 0.7 TH/MM3 (0-0.9); PLATELET COUNT 290 TH/MM3 (150-450); RED BLOOD COUNT 3.54 MIL/MM3 (4.00-5.30); RED CELL DISTRIBUTION WIDTH 15.5 % (11.6-17.2); WHITE BLOOD COUNT 8.6 TH/MM3 (4.0-11.0)
[2017-08-18 06:33] LABS: ALBUMIN 2.1 GM/DL (3.4-5.0); AST (GOT) 9 U/L (15-37); BICARBONATE 29.6 MEQ/L (21.0-32.0); BLOOD UREA NITROGEN 33 MG/DL (7-18); CALCIUM 8.7 MG/DL (8.5-10.1); CHLORIDE 103 MEQ/L (98-107); CREATININE 1.59 MG/DL (0.50-1.00); GLOMERULAR FILTRATION RATE 39 ML/MIN (>89); GLUCOSE,RANDOM 171 MG/DL (74-106); SODIUM (NA) 140 MEQ/L (136-145)
[2017-08-18 06:36] LABS: ALKALINE PHOSPHATASE 76 U/L (45-117); ALT (GPT) 14 U/L (10-53); TOTAL BILIRUBIN ADULT 0.1 MG/DL (0.2-1.0); TOTAL PROTEIN 6.5 GM/DL (6.4-8.2)
--- NOTE | 2017-08-18 08:05 | PD.CARD.PN ---
Subjective Subjective Remarks no chest pain Objective Medications Current Medications Medications (Trade) Dose Ordered Sig/Tresa Route Start Time Stop Time Status Last Admin (Heparin Inj) 5,000 units UNSCH PRN IV PUSH 08/14/17 16:45 (Heparin Inj) 2,500 units UNSCH PRN IV PUSH 08/14/17 16:45 08/16/17 07:45 Heparin Sodium/ Dextrose 250 ml @ 10 mls/hr TITRATE PRN IV 08/14/17 10:45 08/17/17 21:52 (Lipitor) 40 mg HS PO 08/14/17 21:00 08/17/17 21:48 (Apresoline) 75 mg Q8HR PO 08/14/17 14:00 08/18/17 06:00 (Microzide) 12.5 mg DAILY PO 08/15/17 09:00 08/17/17 09:19 (Protonix) 40 mg DAILY PO 08/15/17 09:00 08/17/17 09:18 (Carafate Liq) 1 gm ACHS PO 08/14/17 12:00 08/17/17 21:47 (NS Flush) 2 ml UNSCH PRN IV FLUSH 08/14/17 12:00 (NS Flush) 2 ml BID IV FLUSH 08/14/17 21:00 08/17/17 21:48 (Tylenol) 650 mg Q4H PRN PO 08/14/17 12:00 08/16/17 03:44 (Narcan Inj) 0.4 mg UNSCH PRN IV PUSH 08/14/17 12:00 (Barbie-Colace) 1 tab BID PO 08/14/17 21:00 08/17/17 21:47 (Milk Of Magnesia Liq) 30 ml Q12H PRN PO 08/14/17 12:00 (Senokot) 17.2 mg Q12H PRN PO 08/14/17 12:00 (Dulcolax Supp) 10 mg DAILY PRN RECTAL 08/14/17 12:00 (Lactulose Liq) 30 ml DAILY PRN PO 08/14/17 12:00 (Pill Splitter) 1 ea UNSCH PRN OTHER 08/14/17 12:15 (D50w (Vial) Inj) 50 ml UNSCH PRN IV PUSH 08/14/17 12:15 (Glucagon Inj) 1 mg UNSCH PRN OTHER 08/14/17 12:15 (NovoLOG SUPPLEMENTAL SCALE) 1 ACHS SLIDING SCALE SQ 08/14/17 17:00 08/17/17 21:49 (Norvasc) 10 mg DAILY PO 08/14/17 17:00 08/17/17 09:18 (Catapres) 0.1 mg Q6H PRN PO 08/14/17 17:00 08/15/17 00:22 (Ecotrin Ec) 325 mg DAILY PO 08/17/17 09:00 08/17/17 09:18 (Lopressor) 50 mg Q12HR PO 08/16/17 21:00 08/17/17 21:48 (Levemir Inj) 15 units Q12HR SQ 08/17/17 21:00 08/17/17 21:48 Vital Signs / I&O Vital Signs Date Time Temp Pulse Resp B/P (MAP) Pulse Ox O2 Delivery O2 Flow Rate FiO2 08/18/17 04:00 70 08/18/17 04:00 98.4 84 16 154/78 (103) 96 08/18/17 00:00 79 08/18/17 00:00 97.7 76 18 156/84 (108) 97 08/17/17 20:00 98.4 68 18 147/75 (99) 96 08/17/17 20:00 86 08/17/17 18:00 78 08/17/17 17:00 78 08/17/17 15:32 75 08/17/17 15:32 98.7 75 16 127/50 (75) 99 08/17/17 15:00 76 08/17/17 14:00 72 08/17/17 13:00 70 08/17/17 12:00 65 08/17/17 12:00 98.8 65 16 127/72 (90) 98 08/17/17 11:00 80 08/17/17 10:00 72 08/17/17 09:06 98 21 08/17/17 09:00 84 I/O 08/17/17 08/17/17 08/17/17 08/18/17 08/18/17 08/18/17 07:00 15:00 23:00 07:00 15:00 23:00 Intake Total 480 ml 971 ml 680 ml Output Total 100 ml Balance 480 ml 871 ml 680 ml Intake Oral 480 ml 840 ml 680 ml IV Total 131 ml Output Urine Total 100 ml # Voids 2 3 2 # Bowel Movements 0 0 1 Physical Exam GENERAL: SKIN: Warm and dry. HEAD: Normocephalic. EYES: No scleral icterus. No injection or drainage. NECK: Supple, trachea midline. No JVD or lymphadenopathy. CARDIOVASCULAR: Regular rate and rhythm without murmurs, gallops, or rubs. RESPIRATORY: Breath sounds equal bilaterally. No accessory muscle use. GASTROINTESTINAL: Abdomen soft, non-tender, nondistended. MUSCULOSKELETAL: No cyanosis, or edema. BACK: Nontender without obvious deformity. No CVA tenderness. Laboratory Laboratory Tests Test 08/18/17 05:45 White Blood Count 8.6 TH/MM3 Red Blood Count 3.54 MIL/MM3 Hemoglobin 9.1 GM/DL Hematocrit 28.2 % Mean Corpuscular Volume 79.6 FL Mean Corpuscular Hemoglobin 25.8 PG Mean Corpuscular Hemoglobin Concent 32.5 % Red Cell Distribution Width 15.5 % Platelet Count 290 TH/MM3 Mean Platelet Volume 8.6 FL Neutrophils (%) (Auto) 67.0 % Lymphocytes (%) (Auto) 17.4 % Monocytes (%) (Auto) 8.3 % Eosinophils (%) (Auto) 6.9 % Basophils (%) (Auto) 0.4 % Neutrophils # (Auto) 5.8 TH/MM3 Lymphocytes # (Auto) 1.5 TH/MM3 Monocytes # (Auto) 0.7 TH/MM3 Eosinophils # (Auto) 0.6 TH/MM3 Basophils # (Auto) 0.0 TH/MM3 CBC Comment DIFF FINAL Differential Comment Activated Partial Thromboplast Time 45.0 SEC Blood Urea Nitrogen 33 MG/DL Creatinine 1.59 MG/DL Random Glucose 171 MG/DL Total Protein 6.5 GM/DL Albumin 2.1 GM/DL Calcium Level 8.7 MG/DL Alkaline Phosphatase 76 U/L Aspartate Amino Transf (AST/SGOT) 9 U/L Alanine Aminotransferase (ALT/SGPT) 14 U/L Total Bilirubin 0.1 MG/DL Sodium Level 140 MEQ/L Potassium Level 3.8 MEQ/L Chloride Level 103 MEQ/L Carbon Dioxide Level 29.6 MEQ/L Anion Gap 7 MEQ/L Estimat Glomerular Filtration Rate 39 ML/MIN Assessment and Plan Problem List: (1) HTN (hypertension) ICD Codes: I10 - Essential (primary) hypertension Status: Acute (2) Elevated troponin ICD Codes: R74.8 - Abnormal levels of other serum enzymes Status: Acute (3) Non-ST elevated myocardial infarction ICD Codes: I21.4 - Non-ST elevation (NSTEMI) myocardial infarction Status: Acute Assessment and Plan NSTEMI - mod defect. mild troponin elevation. plan for [facility] diagnostic today. elevated Cr - gentle hydration anemia - Hb drop 2 gm/dL. h/o CVA NPO p light breakfast Td Fabian MD Aug 18, 2017 08:04
[2017-08-18] MEDS: SUCRALFATE 1 GM/10 ML CUP PO SCH ×4 (09:14→22:53)
[2017-08-18] MEDS: PANTOPRAZOLE SOD 40 MG DELAYED RELEASE TAB PO SCH (09:14)
[2017-08-18] MEDS: HYDROCHLOROTHIAZIDE 12.5 MG CAP PO SCH (09:14)
[2017-08-18] MEDS: INSULIN ASPART SUPPLEMENTAL SCALE SQ SCH ×4 (09:14→22:54)
[2017-08-18] MEDS: ASPIRIN EC 325 MG TABEC PO SCH (09:15)
[2017-08-18] MEDS: SODIUM CHLORIDE 0.9% FLUSH 10 ML FLUSH IV FLUSH SCH ×2 (09:15→22:53)
[2017-08-18] MEDS: DOCUSATE SODIUM 50 MG/SENNA 8.6 MG TAB PO SCH ×2 (09:15→21:00)
[2017-08-18] MEDS: METOPROLOL TARTRATE 50 MG TAB PO SCH ×2 (09:15→22:52)
[2017-08-18] MEDS: INSULIN DETEMIR 100 UNITS/ML VIAL SQ SCH (09:18)
--- NOTE | 2017-08-18 09:24 | HHI.FPPN ---
Subjective Remarks No acute events overnight. VS remained stable. She complains of epigastric discomfort that is unchanged previous days. Denies SOB, N/V. (Jorge Rosenbaum MD R1) Objective Vitals Vital Signs Date Time Temp Pulse Resp B/P (MAP) Pulse Ox O2 Delivery O2 Flow Rate FiO2 08/18/17 08:04 98.7 86 18 159/80 (106) 98 08/18/17 04:00 70 08/18/17 04:00 98.4 84 16 154/78 (103) 96 08/18/17 00:00 79 08/18/17 00:00 97.7 76 18 156/84 (108) 97 08/17/17 20:00 98.4 68 18 147/75 (99) 96 08/17/17 20:00 86 08/17/17 18:00 78 08/17/17 17:00 78 08/17/17 15:32 75 08/17/17 15:32 98.7 75 16 127/50 (75) 99 08/17/17 15:00 76 08/17/17 14:00 72 08/17/17 13:00 70 08/17/17 12:00 65 08/17/17 12:00 98.8 65 16 127/72 (90) 98 08/17/17 11:00 80 08/17/17 10:00 72 I/O 08/17/17 08/17/17 08/17/17 08/18/17 08/18/17 08/18/17 07:00 15:00 23:00 07:00 15:00 23:00 Intake Total 480 ml 971 ml 680 ml Output Total 100 ml Balance 480 ml 871 ml 680 ml Intake Oral 480 ml 840 ml 680 ml IV Total 131 ml Output Urine Total 100 ml # Voids 2 3 2 # Bowel Movements 0 0 1 (Jorge Rosenbaum MD R1) Result Diagram: 08/18/17 0545 08/18/17 0545 Objective Remarks GENERAL: This is a well-nourished, well-developed patient, in no apparent distress. SKIN: No rashes, ecchymoses or lesions. Cool and dry. CARDIOVASCULAR: Regular rate and rhythm without murmurs, gallops, or rubs. RESPIRATORY: Clear to auscultation. Breath sounds equal bilaterally. No wheezes , rales, or rhonchi. GASTROINTESTINAL: Obese abdomen, soft, non-tender. MUSCULOSKELETAL: Extremities without clubbing, cyanosis. LE edema BL. Left lower leg is tender to touch. NEUROLOGICAL: AAOx3. 5/5 strength on Right extremities (upper and lower). 3/5 strength in Left upper extremity. 4/5 strength in Left lower extremities. Slurred speech. (Jorge Rosenbaum MD R1) A/P Assessment and Plan Patient is a 72-year-old Female with PMHx of DM, HTN and CVA with residual slurred speech who presented to the ED via [facility] after sustaining a fall this morning at home. In the ED, patient was found to have elevated initial troponin of 0.12. Admitted for further w/u. Troponin .21 then .20. Cardiology consulted to r/o ischemic cardiomyopathy. Lexiscan 08/15. Cardiac cath planned for 08/18 Discharge Planning pending cardiology clearance and placement to rehab (Jorge Rosenbaum MD R1) Attending Attestation Pt. was seen and discussed with Drs. Rosenbaum and Devin. I agree with the findings and the plan as documented. (Ainsley Phillips MD) Problem List: (1) Non-ST elevated myocardial infarction ICD Codes: I21.4 - Non-ST elevation (NSTEMI) myocardial infarction Status: Acute Plan: Patient found to have elevated initial troponin of 0.12, 0.21, 0.20 Denies CP or SOB. EKG w/o ST changes. Stable -On heparin gtt -Cardiology consulted-appreciate recs -Lexiscan 08/15. Myocardial perfusion scan: Moderate size reversible perfusion defect on the septal wall indicating possible ischemic segment. No focal wall motion abnormalities identified. - Cardiac cath planned for 08/18 - Patient started on asa 325mg QD and metoprolol 50mg BID on 08/16 (2) Elevated troponin ICD Codes: R74.8 - Abnormal levels of other serum enzymes Status: Acute Plan: Patient found to have elevated initial troponin of 0.12, 0.21, 0.20 Denies CP or SOB. EKG w/o ST changes. Stable -On heparin gtt see plan above (3) Hypertension ICD Codes: I10 - Essential (primary) hypertension Status: Chronic Plan: BP elevated today in the 150's systolic over 70-80's diastolic HCTZ 12.5 mg PO Daily Amlodipine 10mg PO daily Hydralazine 75mg Q8hr Metoprolol 50 Q12hr added on 08/16 Clonidine 0.1mg if needed for elevated SBP (4) Fall ICD Codes: W19.XXXA - Unspecified fall, initial encounter Plan: Patient fell on her back this morning of 08/14 after experiencing inability to move her legs. She remained on the floor for 1 hour before EMS arrived at her home. Imaging: CT cervical spine: no acute bony fx. no significant changes compared to her prior study on 07/2016. pelvis XRAY: no acute fx or dislocation. Left shoulder xray: No acute fracture or dislocation, Primary degenerative type changes. Shoulder impingement syndrome. Right shoulder x-ray: Advanced arthritic changes, no acute fractures. CT head: no focal or acute intracranial hemorrhage, no new or nicotine changes compared to the prior study. Abdomen/pelvis CT: No acute intra-abdominal or pelvic pathology, calcified uterine fibroids, cyst left kidney, scattered diverticulosis of descending and sigmoid colon without inflammatory changes CXR: no acute disease -Pt placed on bedrest -neuro checks Q4h PT--> recommends PT at rehab. Patient selected [facility] per Case management note (5) Dysarthria ICD Codes: R47.1 - Dysarthria and anarthria Status: Chronic Plan: Patient with residual slurred speech since her CVA dated to have occurred in November 2016, per EMR review. -speech consulted-continue with thin liquid and mechanical soft diet (6) CVA (cerebral vascular accident) ICD Codes: I63.9 - Cerebral infarction, unspecified Status: Chronic Plan: CVA occurred 6months to 1 yr ago she had residual Left sided weakness that improved with physical therapy. Patient with residual dysarthria Previous imaging: Brain MRI 12/02/16: Subacute left thalamic lacunar infarct. Initial CT head on 12/02/16 was normal however repeat CT head on 12/05/16 showed small lacunar infarct in the left basal ganglia, no acute hemorrhage or mass effect. continue with asa (7) DM (diabetes mellitus) ICD Codes: E11.9 - Type 2 diabetes mellitus without complications Status: Chronic Plan: Increased to : Levemir 15 units HS ssi low dose Bedside glucose checks hypoglycemia protocol continue to monitor (8) HLD (hyperlipidemia) ICD Codes: E78.5 - Hyperlipidemia, unspecified Status: Chronic Plan: c/w lipitor (9) Constipation ICD Codes: K59.00 - Constipation, unspecified Status: Acute Plan: c/w constipation per protocol milk of magnesia given x1 (10) Nutrition, metabolism, and development symptoms ICD Codes: R63.8 - Other symptoms and signs concerning food and fluid intake Plan: Fluids: tolerating PO Electrolytes: replete as needed Nutrition: diabetic diet DVT ppx: pt on heparin drip (Jorge Rosenbaum MD R1) Problem Qualifiers (1) Fall: Qualified Codes: W19.XXXA - Unspecified fall, initial encounter Jorge Rosenbaum MD R1 Aug 18, 2017 09:24 Ainsley Phillips MD Aug 18, 2017 09:37
[2017-08-18] MEDS ORDERED: HEPARIN SODIUM - IV 10,000 UNITS/10 ML VIAL ONE (12:59)
[2017-08-18] MEDS ORDERED: NITROGLYCERIN INJ 5 ML ONE (12:59)
[2017-08-18] MEDS ORDERED: HEPARIN-NS/PF FLUSH BAG 2,000 ML IV FLUSH ONE (12:59)
[2017-08-18] MEDS ORDERED: MIDAZOLAM HCL 2 MG/2 ML VIAL ONE (13:08)
[2017-08-18] MEDS ORDERED: MISC INFORMATION XX ONE (13:45)
--- NOTE | 2017-08-18 13:50 | CATHPROC ---
[facility] HIS Report Study Information Study Number Admission Scheduled Start Study Start [id number] Aug 14 2017 10:59AM 08/18/2017 Aug 18 2017 12:35PM [facility] Cardiac Catheterization Admit Source Facility Department Other [facility] - Supervisor Logging Physician and Clinical Staff Initial Td Leonard Workforce Development Vice President Kristi SlaterRN Recorder Ean ASENCIO, Surjit Heredia,RT(R) Procedures Performed Procedure Location (Site) Vessel Name Coronary Angiograms LCA Left Coronary Coronary Angiograms RCA Right Coronary Wire insertion Radial (right) Radial Art. Equipment Time Hall Clerk Description Size Mfg Part Number Used/Scraped TRANSDUCER, TRUWAVE [id number] 12:38 BUITRAGO BECERRA * Used W/STOCKCOCK *[id number] *[id number] 12:38 [employer] PACK, CCL CUSTOM * Used *[id number] 12:38 [employer] SUPPORT, ARTERIAL ADULT 19837 *[id number] Used [id number] 12:38 [employer] PACER PEN, SKIN DUAL W/ RULER * Used *[id number] 13:21 [employer] JL 4.0 DXTERITY CATHETER FR 5 Used *[id number] BAND, RADIAL COMPRESSION TR [id number] 13:41 [employer] MEDICAL 24CM Used SHORT 24 *[id number] SHEATH, FR6 RADIAL PRELUDE 12:38 [employer] FR 6 [id number] Used EASE 11CM [id number] 12:38 [employer] WIRE, EXCHANGE 260CM 3MMJ 260CM Used *[id number] 12:38 [employer] OMNIPAQUE, 350 MG, 150ML 150ML [id number] Used [id number] 12:38 Adocia BLANKET,WARM AIR CCL * Used *[id number] History: Current Medications Medication Dosage/Unit Route Frequency Last Date/Time Taken ASA NORVASC History: Allergies Allergy Reaction NKDA History: Risk Factors Family History of Hypertension Dyslipidemia Previous HI Previous Heart Failure Premature CAD Yes Yes No No No Prior Valve Prior PCI Prior CABG Surgery No No No Cerebrovascular Peripheral Artery Chronic Lung On Dialysis Diabetes Diabetes Therapy Disease Disease Disease No Yes No No Yes Insulin History: Risk Factors Selection Items Diabetes Hypercholesterolemia-Lipid Low. Therapy History: Stress Tests Stress or Imaging Studies Performed No History: Other Disease Selection Items HTN Stroke Labs Hgb (g/dl) Hct (%) WBC (l/cumm) Platelets (thousands) 11.60-17.00 35.00-51.00 4.00-11.00 150.00-450.00 9.1 27.4 8.6 290 BUN (mg/dl) Creatinine (mg/dl) BUN:Creatinine (1:x) 7.00-18.00 0.50-1.30 10.00-20.00 33 1.6 20.6 Na (meq/l) K (meq/l) 136.00-145.00 3.50-5.10 138 3.8 Troponin I (ng/ml) CPK-MB (ng/ML) 0.02-0.05 0.50-3.60 0.15 Not Drawn Medication Medication Total Dose (Bolus/Oral) Medication Total Dosage/Unit 1% XYLOCAINE 5 mL FENTANYL 25 mcg HEPARIN 5000 units NTG (IC) 200 mcg VERSED 1 mg Medications (Bolus/Oral) Medication Time Given Dosage/Unit Administered By Reason VERSED 08/18/2017 1:25:24 PM 1 mg Katheryn Slateraret 1 mg VERSED given in lab by Kristi Slater RN via Peripheral IV. Ordered by Td Fabian. FENTANYL 08/18/2017 1:27:18 PM 25 mcg Katheryn Slateraret 25 mcg FENTANYL given in lab by Kristi Slater RN via Peripheral IV. Ordered by Td Fabian. 1% XYLOCAINE 08/18/2017 1:29:27 PM 5 mL Td Fabian 5 mL 1% XYLOCAINE given in lab by Td Fabian in Right Wrist via Subcutaneous. Ordered by Kaylyn Fabian. HEPARIN 08/18/2017 1:30:42 PM 5000 units Kristi Slater 5000 units HEPARIN given in lab by Kristi Slater RN via Peripheral IV. Ordered by Td Fabian. NTG (IC) 08/18/2017 1:31:29 PM 200 mcg Td Fabian 200 mcg NTG (IC) given in lab by Td Fabian via Intra-arterial. Ordered by Td Fabian. Initial Case Assessment Cardiovascular HR NIBP 76 143/76 Skin color Skin Normal Warm Dry Circulatory - Right Pulses Dorsalis Pedis Femoral Brachial Radial 2 2 1 2 Scale (0,1,2,3,4,d) Circulatory - Left Pulses Dorsalis Pedis Femoral Brachial Radial 2 Scale (0,1,2,3,4,d) Neurological State Oriented to time-place- Alert Moves all extremities person Respiration - General Respiration Rate SpO2 (%) (B/min) 16 94 Chronological Log Time Study Chronological Log 12:57:34 Patient arrived via Bed. 12:57:44 Patient Name, D.O.B, / Armband Verified By R.N. 12:58:57 Consent signed by the physician and the patient and verified by the Supervisor Logging staff. 13:00:26 Patient has been NPO for More than 6Hrs. 13:04:08 Pre-op and post- op instructions given; patient acknowledges understanding of instructions . 13:04:20 Presedation assessment performed by Supervisor Logging RN. Vitals capture started with the following parameters, Patient=Adult, Interval=5 min, Initial P qutvbif=047 mmHg, 13:07:28 Deflation Rate=5 mmHg, Cuff placed on Right Ankle 13:07:40 Skin Breakdown- none reported 13:07:54 Patient Warmer Placed on the Table. 13:07:57 Aakash Prominences Protected 13:07:59 A # 18 IV was noted in the Forearm (left). Grade = 0 13:08:06 HR=81 bpm, UHGN=763/76 mmhg, SpO2=97.0 %, Resp=16 B/min, Pain=0, Felipa=9, Worley=2 13:12:46 Allens test performed on the right radial and ulnar artery. Assessment: Initial Case, HR=76 BPM, MTSE=165/76 mmhg, Color=Normal, Skin = Warm, Dry Right Pulses: Justen Ped=2, Femoral=2, Brachial=1, Radial=2 13:12:56 Left Pulses: Justen Ped=2 Neurological: State=Alert, Ox3, MERINO Respiration: Resp=16 B/min, SpO2=94 % 13:13:50 HR=78 bpm, ZJTE=621/98 mmhg, SpO2=95.0 %, Resp=15 B/min, Pain=0, Worley=2 13:15:09 Right Radial and groin(s) prepped with 2% chlorhexidine, and draped after a 3 min. waiting time. 13:18:12 Pressure channel 1 zeroed. 13:18:13 HR=74 bpm, KTBR=968/87 mmhg, SpO2=93.0 %, Resp=14 B/min, Pain=0, Worley=2 13:18:56 MD paged 13:20:10 MD responded 13:23:24 HR=76 bpm, EYHF=245/41 mmhg, SpO2=97.0 %, Resp=15 B/min, Pain=0, Worley=2 13:24:09 Immediate Presedation assesment performed by physician. 13:24:54 MD arrived. 13:25:24 1 mg VERSED given in lab by Kristi Slater, LUIS M via Peripheral IV. Ordered by Marybel Fabian. 13:27:18 25 mcg FENTANYL given in lab by Kristi Slater, LUIS M via Peripheral IV. Ordered by Kaylyn Fabian. 13:28:11 HR=78 bpm, IQZR=255/92 mmhg, SpO2=95.0 %, Resp=17 B/min, Pain=0, Worley=2 Time Out. Correct patient, correct procedure, correct physician, power injector loaded, or not loaded with contrast with :28:20 surgical team present. Time Out Concurred by MD and individual staff in procedure. 13:29:24 Case Start 13:29:27 5 mL 1% XYLOCAINE given in lab by Td Fabian in Right Wrist via Subcutaneous. Ordered b y Td Fabian. 13:30:03 Access site was Right Radial Artery. A SHEATH, FR6 RADIAL PRELUDE EASE 11CM FR 6 was advanced into the Radial (right) using the Radha fied Seldinger 13:30:20 technique. 13:30:42 5000 units HEPARIN given in lab by Kristi Slater, LUIS M via Peripheral IV. Ordered by Td Fabian. 13:31:29 200 mcg NTG (IC) given in lab by Td Fabian via Intra-arterial. Ordered by Marybel Fabian. 13:32:13 A WIRE, EXCHANGE 260CM 3MMJ 260CM was inserted via Radial (right). 13:32:13 A JR 5.0 INFINITI CATHETER FR 5 was advanced over a wire. contrast was used for injections. 13:32:37 Wire removed 13:33:12 HR=72 bpm, IJAM=991/84 mmhg, SpO2=91.0 %, Resp=13 B/min, Pain=0, Worley=2 Recorded Pressure: LV, HR=71, Condition=Condition 1 13:34:15 (Left Ventricle) LV 145/2/-3 Recorded Pressure: LV, Ao, HR=74, Condition=Condition 1 13:34:55 (Left Ventricle) LV 154/5/20, (Aorta) Ao 150/68/102 13:36:00 The RCA was injected and visualized at various angles. OMNIPAQUE, 350 MG, 150ML 150ML used . After removing the current catheter a JL 4.0 DXTERITY CATHETER FR 5 was advanced over a WIRE, E XCHANGE 260CM 13:36:14 3MMJ 260CM. 13:37:45 The LCA was injected and visualized at various angles. OMNIPAQUE, 350 MG, 150ML 150ML used . 13:38:11 HR=71 bpm, GPRW=562/79 mmhg, SpO2=95.0 %, Resp=17 B/min, Worley=4 13:38:26 Catheter was removed 13:38:34 Case End Radial Compression Device Used. 11 mLs of air placed in BAND, RADIAL COMPRESSION TR SHORT 24 24 CM. Affected 13:42:55 hand 96 % O2 saturation. 13:43:10 HR=66 bpm, UVNT=846/78 mmhg, Resp=20 B/min, Worley=2 13:43:30 No case complications noted. 13:44:12 CIC called. 13:44:32 Bedside Report will be given. 13:45:14 Vitals capture stopped. 13:49:12 Patient moved to stretcher End Study - Maximum Contrast Load Max Contrast Load (mL) 366.5 End Study - Radiation Exposure Fluoro Time (minutes) 2.5 End Study - Patient Disposition Complications Transferred To Interventional Outcome No Supervisor Logging Holding No attempt made
--- NOTE | 2017-08-18 14:28 | MA ---
cc: Td Fabian MD 08/18/2017 INDICATION: Elevated troponin. PROCEDURE PERFORMED: 1. Fluoroscopy with interpretation. 2. Left heart catheterization. 3. Coronary angiography. METHOD: Risks, benefits and alternatives were discussed with the patient. The patient understood and consented to the procedure. The patient was brought to the catheterization lab and placed on the catheterization table. The right wrist was prepped and draped in a sterile fashion. The right wrist was anesthetized with 2% lidocaine. The right radial artery was cannulated. A 6 Tongan 7 cm sheath was placed without difficulty. LEFT HEART CATHETERIZATION: Intraventricular hemodynamics measured at 154/5 mmHg. CORONARY ANGIOGRAPHY: 1. Left main coronary is angiographically normal. 2. Left anterior descending coronary is large caliber size vessel, angiographically normal. There is a myocardial bridge in the mid to distal segment. Moderate-sized diagonal branch, angiographically normal. 3. Left circumflex gives rise to an obtuse marginal branch, angiographically normal. 4. The right coronary is a dominant vessel giving rise to posterior descending branch. The right coronary is angiographically normal. CONCLUSIONS: 1. Angiographically normal coronary arteries. 2. Normal left sided filling pressure. PLAN: The patient will be monitored closely for postprocedural complications. Continue aggressive risk factor modification and management. We will sign off, call with further questions. Td Fabian MD BERE/TL/rr , 01:46 PM , 02:05 PM
[2017-08-18] MEDS ORDERED: HYDR-3800 PO (21:20)
[2017-08-18] MEDS ORDERED: SUCR1S PO (21:20)
[2017-08-18] MEDS ORDERED: SENN1TAB PO (21:20)
[2017-08-18] MEDS ORDERED: HYDR12.57 PO (21:20)
[2017-08-18] MEDS ORDERED: AMLO10 PO (21:20)
[2017-08-18] MEDS ORDERED: NOVOLOGP2 SQ (21:20)
[2017-08-18] MEDS ORDERED: ATOR40TA16 PO (21:20)
[2017-08-18] MEDS ORDERED: PANT40TA3 PO (21:20)
[2017-08-18] MEDS ORDERED: ASPI-183 PO (21:20)
[2017-08-18] MEDS: ATORVASTATIN 40 MG TAB PO SCH (22:52)
[2017-08-19] VITALS (17 sets, daily range): BP systolic 137–163; BP diastolic 72–90; PULSE 56–78; RESP 16–18; TEMP 98–98.2; O2SAT 98–99
[2017-08-19] MEDS: hydrALAZINE HCL 50 MG TAB PO SCH ×2 (05:46→13:50)
[2017-08-19 06:54] LABS: HEMATOCRIT 29.7 % (35.0-46.0); HEMOGLOBIN 9.8 GM/DL (11.6-15.3); MEAN CELL VOLUME 79.6 FL (80.0-100.0); MEAN CORPUSCULAR HEMOGLOBIN 26.3 PG (27.0-34.0); MEAN PLATELET VOLUME 8.1 FL (7.0-11.0); PLATELET COUNT 312 TH/MM3 (150-450); RED BLOOD COUNT 3.73 MIL/MM3 (4.00-5.30); RED CELL DISTRIBUTION WIDTH 15.6 % (11.6-17.2); WHITE BLOOD COUNT 8.5 TH/MM3 (4.0-11.0)
--- NOTE | 2017-08-19 07:00 | HHI.DCPOC ---
Discharge Care Plan Diagnosis: (1) Non-ST elevated myocardial infarction (2) HTN (hypertension) (3) Fall Goals to Promote Your Health * To prevent worsening of your condition and complications * To maintain your health at the optimal level Directions to Meet Your Goals Take your medications as prescribed Follow your dietary instruction Follow activity as directed Keep your appointments as scheduled Take your immunizations and boosters as scheduled If your symptoms worsen call your PCP, if no PCP go to Urgent Care Center or Emergency Room Smoking is Dangerous to Your Health. Avoid second hand smoke Call the 24-hour hour crisis hotline for domestic abuse at Cely Beltran MD Aug 19, 2017 07:00
[2017-08-19 07:05] LABS: BICARBONATE 26.5 MEQ/L (21.0-32.0); CALCIUM 9.1 MG/DL (8.5-10.1); CREATININE 1.59 MG/DL (0.50-1.00)
[2017-08-19] MEDS: INSULIN ASPART SUPPLEMENTAL SCALE SQ SCH ×2 (08:00→12:07)
[2017-08-19] MEDS: SUCRALFATE 1 GM/10 ML CUP PO SCH ×2 (08:06→12:07)
[2017-08-19] MEDS: METOPROLOL TARTRATE 50 MG TAB PO SCH (08:10)
[2017-08-19] MEDS: ASPIRIN EC 325 MG TABEC PO SCH (08:10)
[2017-08-19] MEDS: PANTOPRAZOLE SOD 40 MG DELAYED RELEASE TAB PO SCH (08:10)
[2017-08-19] MEDS: HYDROCHLOROTHIAZIDE 12.5 MG CAP PO SCH (08:10)
[2017-08-19] MEDS: DOCUSATE SODIUM 50 MG/SENNA 8.6 MG TAB PO SCH (08:10)
[2017-08-19] MEDS: SODIUM CHLORIDE 0.9% FLUSH 10 ML FLUSH IV FLUSH SCH (08:11)
[2017-08-19] MEDS ORDERED: INSULIN DETEMIR 100 UNITS/ML VIAL SQ SCH ×2 (09:00→18:00)
[2017-08-19] MEDS ORDERED: LEVEMIR SQ (11:34)
--- NOTE | 2017-08-19 11:37 | HHI.DS ---
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 ICD Codes: R47.1 - Dysarthria and anarthria Status: Chronic Brief History Patient is a 72-year-old Female with PMHx of DM, HTN and CVA with residual slurred speech who presented to the ED via [facility] after sustaining a fall this morning at home. Patient reports that as she used her walker to get up for the sofa and then noted her legs would not move. Next thing she remembers she had fallen on her back. Denies hitting her head, LOC, auras, blurry vision, CP, SOB , confusion, convulsions, biting of tongue or numbness/tingling. Patient was on the floor after her fall for about 1 hour until she was able to call her son who called 911. She does endorse urinary incontinence, however it is unclear whether this is a chronic issue for her. She reports BL shoulder pain, BL leg pain, RUQ pain and neck pain. She also states that her body feels "strange" since the fall and is unable to elaborate further about what she means by that statement. Patient also reports that 3 months ago she had a similar episode where she fell and injured her left side after the leg would not move while she was trying to walk using her walker. Of note, patient stated that her CVA occurred 6months to 1 yr ago she had residual Left sided weakness that improved with physical therapy. Her dysarthria persisted. She will be starting speech therapy soon. Brain MRI 12/02/16: Subacute left thalamic lacunar infarct. Initial CT head on 12/02/16 was normal however repeat CT head on 12/05/16 showed small lacunar infarct in the left basal ganglia, no acute hemorrhage or mass effect. CBC/BMP: 08/19/17 0602 08/19/17 0602 Significant Findings Laboratory Tests Test 08/16/17 12:12 08/16/17 18:32 08/17/17 05:21 08/18/17 05:45 Activated Partial Thromboplast Time 47.3 SEC (24.3-30.1) 42.3 SEC (24.3-30.1) 42.1 SEC (24.3-30.1) 45.0 SEC (24.3-30.1) Red Blood Count 3.47 MIL/MM3 (4.00-5.30) 3.54 MIL/MM3 (4.00-5.30) Hemoglobin 9.1 GM/DL (11.6-15.3) 9.1 GM/DL (11.6-15.3) Hematocrit 27.4 % (35.0-46.0) 28.2 % (35.0-46.0) Mean Corpuscular Volume 78.8 FL (80.0-100.0) 79.6 FL (80.0-100.0) Mean Corpuscular Hemoglobin 26.1 PG (27.0-34.0) 25.8 PG (27.0-34.0) Blood Urea Nitrogen 34 MG/DL (7-18) 33 MG/DL (7-18) Creatinine 1.69 MG/DL (0.50-1.00) 1.59 MG/DL (0.50-1.00) Random Glucose 180 MG/DL (74-106) 171 MG/DL (74-106) Potassium Level 3.4 MEQ/L (3.5-5.1) Estimat Glomerular Filtration Rate 36 ML/MIN (>89) 39 ML/MIN (>89) Monocytes (%) (Auto) 8.3 % (0.0-8.0) Eosinophils (%) (Auto) 6.9 % (0.0-4.0) Eosinophils # (Auto) 0.6 TH/MM3 (0-0.4) Albumin 2.1 GM/DL (3.4-5.0) Aspartate Amino Transf (AST/SGOT) 9 U/L (15-37) Total Bilirubin 0.1 MG/DL (0.2-1.0) Test 3/13/18 06:02 Red Blood Count 3.73 MIL/MM3 (4.00-5.30) Hemoglobin 9.8 GM/DL (11.6-15.3) Hematocrit 29.7 % (35.0-46.0) Mean Corpuscular Volume 79.6 FL (80.0-100.0) Mean Corpuscular Hemoglobin 26.3 PG (27.0-34.0) Activated Partial Thromboplast Time 30.7 SEC (24.3-30.1) Blood Urea Nitrogen 34 MG/DL (7-18) Creatinine 1.59 MG/DL (0.50-1.00) Random Glucose 120 MG/DL (74-106) Estimat Glomerular Filtration Rate 39 ML/MIN (>89) PE at Discharge GENERAL: This is a well-nourished, well-developed patient, in no apparent distress. SKIN: No rashes, ecchymoses or lesions. Cool and dry. CARDIOVASCULAR: Regular rate and rhythm without murmurs, gallops, or rubs. RESPIRATORY: Clear to auscultation. Breath sounds equal bilaterally. No wheezes , rales, or rhonchi. GASTROINTESTINAL: Obese abdomen, soft, non-tender. MUSCULOSKELETAL: Extremities without clubbing, cyanosis. LE edema BL. Left lower leg is tender to touch. NEUROLOGICAL: AAOx3. 5/5 strength on Right extremities (upper and lower). 3/5 strength in Left upper extremity. 4/5 strength in Left lower extremities. Slurred speech. Hospital Course Patient is a 72-year-old Female with PMHx of DM, HTN and CVA with residual slurred speech who presented to the ED via [facility] after sustaining a fall this morning at home. Imaging was negative for acute fractures or intracranial hemorrhage. In the ED, patient was found to have elevated initial troponin of 0.12. Admitted for further w/u. Troponin .21 then .20. Cardiology consulted to r /o ischemic cardiomyopathy. EKG showed no ST changes. Lexiscan 08/15 showed moderate size reversible perfusion defect on the septal wall indicating possible ischemic segment. No focal wall motion abnormalities identified. Was started on ASA 325 qd and metoprolol 50 BID. Cardiac cath on 08/18 showed no blockage and patient was cleared from a cardiac standpoint. Patient and medical team felt she was safe for discharge to SNF for rehab. Pt Condition on Discharge: Stable Discharge Disposition: Discharge to SNF Discharge Instructions DIET: Follow Instructions for: Diabetic Diet Speech Therapy-Diet Recommends: Mechanical Soft Activities you can perform: Regular-No Restrictions Other Activity Instructions: Ambulate with assistance Follow up Referrals: Cardiology - 1 Week with Wing Codie Kevin MD PCP Follow-up - 1 Week Changed Medications: Insulin Detemir Inj (Levemir Inj) 1,000 unit/ 10 ML Vial 15 UNITS SQ Q12HR for 30 Days, #1 VIAL (Changed from: 26 UNITS) Continued Medications: Amlodipine (Norvasc) 10 Mg Tab 10 MG PO DAILY for hypertension, #30 TAB 0 Refills (This prescription has been renewed) Aspirin (Aspirin) 325 Mg Tab 325 MG PO DAILY for CVA, #30 TAB 0 Refills (This prescription has been renewed) Atorvastatin (Atorvastatin) 40 Mg Tab 40 MG PO HS for hyperlipidemia, #30 TAB 0 Refills (This prescription has been renewed) Hydralazine HCl (Hydralazine HCl) 50 Mg Tablet 75 MG PO Q8HR for 30 Days, #90 TAB 0 Refills (This prescription has been renewed ) Hydrochlorothiazide (Hydrochlorothiazide) 12.5 Mg Cap 12.5 MG PO DAILY, #30 CAP (This prescription has been renewed) Insulin Aspart Inj (Novolog Inj) 1,000 Unit/10 Ml Vial 8 UNITS SQ TIDAC for 30 Days, #1 VIAL (This prescription has been renewed) Pantoprazole (Pantoprazole) 40 Mg Tab 40 MG PO DAILY for gasteritis, #30 TAB (This prescription has been renewed) Sennosides-Docusate Sodium (Senna Plus 8.6-50 mg) 1 Tab Tab 1 TAB PO BID for constipation, #60 TAB 0 Refills (This prescription has been renewed) Sucralfate Liq (Sucralfate Liq) 1 Gm/10 Ml Nancy 1 GM PO ACHS for gasteritis, #30 TAB (This prescription has been renewed) Discontinued Medications: Codeine-Acetaminophen (Codeine-Acetaminophen) 30-300 mg Tab 1 TAB PO Q4H PRN for PAIN, #15 TAB 0 Refills Jorge Rosenbaum MD R1 Aug 19, 2017 11:37
--- NOTE | 2017-08-19 11:37 | HHI.FPPN ---
Subjective Remarks No acute events overnight. Patient states she tolerated the [facility] procedure well and has had no pain at R wrist incision site, no chest pain or SOB. Patient is agreeable to rehab at a SNF. (Jorge Rosenbaum MD R1) Objective Vitals Vital Signs Date Time Temp Pulse Resp B/P (MAP) Pulse Ox O2 Delivery O2 Flow Rate FiO2 08/19/17 06:00 74 08/19/17 05:25 74 16 161/90 (113) 99 08/19/17 05:20 73 16 161/90 (113) 99 08/19/17 05:00 72 08/19/17 04:00 66 08/19/17 03:00 70 08/19/17 02:00 68 08/19/17 01:00 78 08/19/17 00:00 78 08/18/17 23:00 76 08/18/17 21:33 95 21 08/18/17 21:00 76 08/18/17 20:59 80 16 147/70 (95) 94 08/18/17 20:00 78 16 147/70 (95) 99 08/18/17 20:00 70 08/18/17 19:00 76 08/18/17 18:00 80 08/18/17 17:00 76 08/18/17 16:02 84 08/18/17 15:22 98.3 76 18 165/86 (112) 98 08/18/17 15:00 78 08/18/17 14:00 76 08/18/17 12:01 100 I/O 08/18/17 08/18/17 08/18/17 08/19/17 08/19/17 08/19/17 06:59 14:59 22:59 06:59 14:59 22:59 Intake Total 680 ml 0 ml 960 ml 240 ml Output Total 1500 ml 850 ml Balance 680 ml 0 ml -540 ml -610 ml Intake Oral 680 ml 960 ml 240 ml IV Total 0 ml Output Urine Total 1500 ml 850 ml # Voids 2 1 # Bowel Movements 1 0 1 (Jorge Rosenbaum MD R1) Result Diagram: 08/19/17 0602 08/19/17 0602 Objective Remarks GENERAL: This is a well-nourished, well-developed patient, in no apparent distress. SKIN: No rashes, ecchymoses or lesions. Cool and dry. CARDIOVASCULAR: Regular rate and rhythm without murmurs, gallops, or rubs. RESPIRATORY: Clear to auscultation. Breath sounds equal bilaterally. No wheezes , rales, or rhonchi. GASTROINTESTINAL: Obese abdomen, soft, non-tender. MUSCULOSKELETAL: Extremities without clubbing, cyanosis. Bandage on R wrist from [facility] site is clean, dry and intact. NEUROLOGICAL: AAOx3. Slurred speech unchanged from prior exams. (Jorge Rosenbaum MD R1) A/P Assessment and Plan Patient is a 72-year-old Female with PMHx of DM, HTN and CVA with residual slurred speech who presented to the ED via [facility] after sustaining a fall this morning at home. In the ED, patient was found to have elevated initial troponin of 0.12. Admitted for further w/u. Troponin .21 then .20. Cardiology consulted to r/o ischemic cardiomyopathy. Lexiscan 08/15. Cardiac cath planned on 08/18 showed no blockage and patient is cleared from a cardiac standpoint. Discharge Planning Discharge to SNF for rehabilitation today (Jorge Rosenbaum MD R1) Attending Attestation Patient was seen, examined and discussed with the medicine team, Drs. Beltran and Robi. She is amenable to going to [facility] for rehabilitation. Her son is aware. I agree with the findings and plan as documented above. (Ainsley Phillips MD) Problem List: (1) Non-ST elevated myocardial infarction ICD Codes: I21.4 - Non-ST elevation (NSTEMI) myocardial infarction Status: Acute Plan: Patient found to have elevated initial troponin of 0.12, 0.21, 0.20 Denies CP or SOB. EKG w/o ST changes. Stable -Cardiology consulted-appreciate recs -Lexiscan 08/15. Myocardial perfusion scan: Moderate size reversible perfusion defect on the septal wall indicating possible ischemic segment. No focal wall motion abnormalities identified. - Cardiac cath on 08/18 showed normal coronary arteries and a normal left- sided filling pressure. Cleared from cardiac standpoint - Patient started on asa 325mg QD and metoprolol 50mg BID on 08/16 (2) Hypertension ICD Codes: I10 - Essential (primary) hypertension Status: Chronic Plan: BP elevated today in to 161 systolic over 90 diastolic Discharging on HCTZ 12.5 mg PO Daily Amlodipine 10mg PO daily Hydralazine 75mg Q8hr Metoprolol 50 Q12hr added on 08/16 (3) Fall ICD Codes: W19.XXXA - Unspecified fall, initial encounter Plan: Patient fell on her back the morning of 08/14 after experiencing inability to move her legs. She remained on the floor for 1 hour before EMS arrived at her home. Imaging: CT cervical spine: no acute bony fx. no significant changes compared to her prior study on 07/2016. pelvis XRAY: no acute fx or dislocation. Left shoulder xray: No acute fracture or dislocation, Primary degenerative type changes. Shoulder impingement syndrome. Right shoulder x-ray: Advanced arthritic changes, no acute fractures. CT head: no focal or acute intracranial hemorrhage, no new or nicotine changes compared to the prior study. Abdomen/pelvis CT: No acute intra-abdominal or pelvic pathology, calcified uterine fibroids, cyst left kidney, scattered diverticulosis of descending and sigmoid colon without inflammatory changes CXR: no acute disease -neuro checks Q4h PT--> recommends PT at rehab. 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 -speech consulted-continue with thin liquid and mechanical soft diet (5) CVA (cerebral vascular accident) ICD Codes: I63.9 - Cerebral infarction, unspecified Status: Chronic Plan: CVA occurred 6months to 1 yr ago she had residual Left sided weakness that improved with physical therapy. Patient with residual dysarthria Previous imaging: Brain MRI 12/02/16: Subacute left thalamic lacunar infarct. Initial CT head on 12/02/16 was normal however repeat CT head on 12/05/16 showed small lacunar infarct in the left basal ganglia, no acute hemorrhage or mass effect. continue with asa (6) DM (diabetes mellitus) ICD Codes: E11.9 - Type 2 diabetes mellitus without complications Status: Chronic Plan: Will discharge on Levemir 15 units BID and Novolog 8 units with meals (7) HLD (hyperlipidemia) ICD Codes: E78.5 - Hyperlipidemia, unspecified Status: Chronic Plan: c/w lipitor (8) Constipation ICD Codes: K59.00 - Constipation, unspecified Status: Acute Plan: c/w constipation per protocol milk of magnesia given x1 (9) Nutrition, metabolism, and development symptoms ICD Codes: R63.8 - Other symptoms and signs concerning food and fluid intake Plan: Fluids: tolerating PO Electrolytes: replete as needed Nutrition: diabetic diet DVT ppx: pt had been on heparin drip - discontinued for discharge (Jorge Rosenbaum MD R1) Problem Qualifiers (1) Hypertension: Qualified Codes: I10 - Essential (primary) hypertension (2) Fall: Qualified Codes: W19.XXXA - Unspecified fall, initial encounter Jorge Rosenbaum MD R1 Aug 19, 2017 11:37 Ainsley Phillips MD Aug 19, 2017 12:09
== END 2017-08-19 15:58 | DRG 281 ==
LOC: NEPE 07:30 → NEDA 10:59 → NEDH 14:11 → HCIS 18:18
PROVIDERS: ADMIT Family Medicine; ATTEND Family Medicine
PROC: B2111ZZ Fluoroscopy of Multiple Coronary Arteries using Low Osmolar Contrast (ICD-10-PCS; 2017-08-18)
PROC: 4A023N7 Measurement of Cardiac Sampling and Pressure, Left Heart, Percutaneous Approach (ICD-10-PCS; principal; 2017-08-18 13:45)
DX: I21.4 Non-ST elevation (NSTEMI) myocardial infarction (principal); I69.354 Hemiplegia and hemiparesis following cerebral infarction affecting left non-dominant side; E11.9 Type 2 diabetes mellitus without complications; Z68.41 Body mass index [BMI] 40.0-44.9, adult; I69.328 Other speech and language deficits following cerebral infarction; W19.XXXA Unspecified fall, initial encounter; Y92.009 Unspecified place in unspecified non-institutional (private) residence as the place of occurrence of the external cause; R32 Unspecified urinary incontinence; E78.5 Hyperlipidemia, unspecified; I10 Essential (primary) hypertension; Z79.4 Long term (current) use of insulin; K59.00 Constipation, unspecified; M75.42 Impingement syndrome of left shoulder; K57.30 Diverticulosis of large intestine without perforation or abscess without bleeding; D25.9 Leiomyoma of uterus, unspecified; K21.9 Gastro-esophageal reflux disease without esophagitis; E66.01 Morbid (severe) obesity due to excess calories; G89.29 Other chronic pain; M54.9 Dorsalgia, unspecified; N28.1 Cyst of kidney, acquired; J45.909 Unspecified asthma, uncomplicated; M79.606 Pain in leg, unspecified; M54.2 Cervicalgia; M25.511 Pain in right shoulder; M25.512 Pain in left shoulder
CPT/HCPCS: 70450; 71045; 72125; 72170; 73030; 74177; 78452; 80048; 80053; 81001; 82550; 82948; 83605; 84484; 85025; 85027; 85730; 87040; 93005; 93017; 93458; 96360; 99152; A9502; C1769; C1893; J1644; J1815; J2250; J2785; J3010; J7030; Q9967